=== PATIENT | male | born 1935 | race Caucasian/White ===

== ENCOUNTER 2017-08-11 21:23 | Inpatient (IN) ==
[2017-08-11] MEDS ORDERED: Ondansetron 4 MG/2 ML VIAL IVP ONE (22:18)
[2017-08-11] MEDS ORDERED: *HR* Morphine 2 MG/ML SYRINGE IVP ONE (22:18)
--- NOTE | 2017-08-11 22:29 | Emergency Department Note ---
Disposition Clinical Impression: Intertrochanteric fracture of right femur Qualifiers: Encounter type: initial encounter Fracture type: closed Fracture alignment: nondisplaced Qualified Code(s): S72.144A - Nondisplaced intertrochanteric fracture of right femur, initial encounter for closed fracture Disposition: Admitted As Inpatient Condition: Fair Referrals: NONE,PCP [Non-Partnered Physician] - Forms: ED Satisfaction Letter Time of Disposition: 23:28 Fall HPI - General Chief Complaint: ED Extremity Injury, Lower Stated Complaint: Fall/Right Hip Pain Time Seen by Provider: 08/11/17 21:43 Source: family Mode of arrival: EMS Limitations: no limitations Nursing Notes Reviewed: Yes Vital Signs Reviewed: Yes - History of Present Illness HPI Narrative: 81-year-old male presents to the ED complaining of right hip and knee pain from a fall today. Patient states he fell at approximately 1700. This is a mechanical fall while he was chasing a dog. He was walking fast and fell onto his right side. He did not have stretches arms. He states he did not hit his head or lose consciousness. Family was there during the fall and states that this is true. Patient has had a history of hip pain as he has osteoarthritis of the right hip and takes chronic pain medications for that. He has not had a surgery of his hip. Patient states he is not nauseous or vomiting he has no headache, blurry vision, weakness or numbness anywhere, he does not have chest pain shortness of breath, abdominal pain, constipation/diarrhea, pain with urination. - Related Data Allergies Allergy/AdvReac Type Severity Reaction Status Date / Time Penicillins [PCN] Allergy See Verified 05/31/17 14:52 Comments Sulfa (Sulfonamide Allergy See Verified 05/31/17 14:52 Antibiotics) Comments Review of Systems: 10 point review of systems done and negative unless otherwise stated in the history of present illness. All systems ED: reviewed and negative except as stated. Review of Systems: As Per HPI Fall PMH - Past Medical History Medical history: Reports: COPD, coronary artery disease Psychiatric history: Reports: no psych history - Social History Smoking Status: Former smoker Alcohol use: Reports: none Drug use: Reports: none Physical Exam - General Limitations: no limitations General appearance: alert - Head Head exam: atraumatic, normocephalic, normal inspection - Eye Eye exam: Present: normal appearance, PERRL - ENT ENT exam: normal exam, normal oropharynx, mucous membranes moist - Neck Neck exam: Present: normal inspection, full ROM, trachea midline - Chest Chest inspection: Present: normal inspection, symmetric chest wall rise - Respiratory Respiratory exam: Present: normal lung sounds bilaterally. Absent: respiratory distress, wheezes, accessory muscle use - Cardiovascular Cardiovascular exam: Present: regular rate - Abdominal Exam Abdominal exam: Present: soft, Non-Tender. Absent: tenderness, distention, guarding, rebound, rigidity, trauma - Expanded Lower Extremity Exam Hip/Pelvis exam: Present: tenderness (Patient was very tender to the greater trochanter on palpation.), pelvis stable (Pelvis was stable with compression and posterior pressure.). Absent: full ROM (Unable to examine due to patient pain.), swelling, abrasion, deformity, dislocation, erythema, external rotation , internal rotation, shortening Upper leg exam: Present: normal inspection Knee exam: Present: full ROM (Unable to examine due to patient much pain.), tenderness (Tenderness to the lateral knee joint.), other (All other tests were unable to do due to patient being in severe pain.). Absent: deformity, dislocation, erythema, effusion Lower leg exam: Present: normal inspection, full ROM Ankle exam: Present: normal inspection, full ROM Neurovascular/Tendon exam: Present: normal capillary refill, normal fine/light touch. Absent: pulse deficit (Bilateral pedal and posterior tibial pulses were present.), motor deficit, sensory deficit, tendon deficit, foot drop Gait: not tested/not observed - Back Exam Back exam: Present: normal inspection, full ROM. Absent: tenderness, CVA tenderness (R), CVA tenderness (L) - Neurological Exam Neurological exam: Present: alert, oriented X3 - Skin Skin exam: Present: warm, dry, intact, normal color Course Course Narrative: 9-year-old male comes in for mechanical fall with right hip and knee pain. We will get x-rays of the right hip and knee trauma any types of pathology or fractures. Patient with history of arthritis so we may need a CT to rule out any other fractures. We will start an IV on the patient and give him morphine and Zofran for his pain control as he is artery tried oxycodone and Percocets and was unable to take care of the pain. We will also get basic labs including CBC and BMP. In case he has to be admitted. If anything comes back negative. We will consider sending him home if he is able to ambulate. If he is unable to ambulate will need him to be admitted and possibly further evaluated. - Consultations Consultation #1: Spoke with Dr. Moss the orthopedist who agreed to see the patient in the hospital. He recommended that we contact the hospitalist and consult with orthopedics. Time: 23:23 Vital Signs Temperature 97.5 F L 08/11/17 21:33 Pulse Rate 64 08/11/17 21:33 Respiratory Rate 12 08/11/17 21:33 Blood Pressure 144/87 08/11/17 21:33 O2 Sat by Pulse Oximetry 94 08/11/17 21:33 Temperature 97.5 F L 08/11/17 21:33 Pulse Rate 64 08/11/17 21:33 Respiratory Rate 12 08/11/17 21:33 Blood Pressure 144/87 08/11/17 21:33 O2 Sat by Pulse Oximetry 94 08/11/17 21:33 Oxygen Delivery Oxygen Delivery Room Air Fall - [facility] Narrative Medical decision making narrative: 81-year-old male begins the ED after a fall complaining of right hip and knee pain. This was a mechanical fall so there is no reason to further workup involving syncope at this time. We did right hip as well as right knee x-rays as were his complaining of pain. He did have good pedal pulses and popliteal pulses. He did have good sensation. It is hard to get range of motion and strength exam due to patient being in so much pain. The x-rays did show an intertrochanteric fracture of the right femur. It was nondisplaced. I spoke with Dr. Shay orthopedist who agreed to see him if he was admitted to the hospital service and they consulted. A swing this to the patient. Patient is okay with this. At this time we added on basic surgical labs including PT/INR and PTT as well as placing a Hercules catheter due to patient not being able to stand and get a urinalysis. We also ordered chest x-ray and EKG. We then spoke to the hospitalist Dr. Cochran who agreed to admit the patient to their service and consult orthopedics. Patient uses pain. Patient is admitted in stable condition vital signs are stable at this time. Hip X-Ray 08/11/17 22:18 IMPRESSION: Nondisplaced intertrochanteric fracture on the right. Severe right hip osteoarthrosis. D/ / Seth Montemayor MD / Seth Montemayor MD Interpreting Provider: Seth Montemyaor MD Knee X-Ray 08/11/17 22:18 IMPRESSION: Anterior soft tissue swelling with no definite fracture. D/ / Tito Acosta MD / Tito Acosta MD Interpreting Provider: Tito Acosta MD - Medical Records Medical records reviewed: Yes I reviewed the patient's medical records. - Lab Data Lab results reviewed: Yes I reviewed the patient's lab results. Result diagrams: 08/11/17 22:43 08/11/17 22:43 Lab Results 08/11/17 08/11/17 08/11/17 Range/Units 22:43 22:43 22:43 WBC 10.1 (4.3-11.1) K/mcL RBC 4.66 (4.19-5.50) M/mcL Hgb 13.2 (12.9-16.9) g/dL Hct 41.4 (37.5-50.1) % MCV 88.8 (83.0-100.0) fL MCH 28.3 (28.0-33.3) pg MCHC 31.9 (31.6-35.5) g/dL RDW 12.8 (11.5-14.5) % Plt Count 179 (140-400) K/mcL MPV 9.4 (9.4-12.4) fL Immature Gran % 0.6 (0-4) % Seg Neutrophils % 83.5 % Lymphocytes % 9.6 % Monocytes % 5.5 % Eosinophils % 0.5 % Basophils % 0.3 % Neutrophils # 8.4 (1.6-8.9) K/mcL Lymphocytes # 1.0 (0.6-4.6) K/mcL Monocytes # 0.6 (0.0-1.3) K/mcL Eosinophils # 0.1 (0.0-0.6) K/mcL Basophils # 0.0 (0.0-0.2) K/mcL PT 10.8 (9.4-12.1) Seconds INR 1.0 APTT 28.3 (26.0-36.0) Seconds Sodium 138 (136-145) mEq/L Potassium 4.6 H (3.5-4.5) mEq/L Chloride 105 (98-109) mEq/L Carbon Dioxide 27 (19-29) mEq/L BUN 24 (8-26) mg/dL Creatinine 1.33 H (0.72-1.25) mg/dL Est GFR ( Amer) > 60 (> 60) Est GFR (Non-Af Amer) 52 L (> 60) BUN/Creatinine Ratio 18 (6-26) Glucose 159 H (70-99) mg/dL Calculated Osmolality 293 (280-300) Calcium 9.0 (8.6-10.8) mg/dL - Radiology Data Radiology results reviewed: Yes I reviewed the patient's radiology results. Hip X-Ray 08/11/17 22:18 IMPRESSION: Nondisplaced intertrochanteric fracture on the right. Severe right hip osteoarthrosis. D/ / Seth Montemayor MD / Seth Montemayor MD Interpreting Provider: Seth Montemayor MD Knee X-Ray 08/11/17 22:18 IMPRESSION: Anterior soft tissue swelling with no definite fracture. D/ / Tito Acosta MD / Tito Acosta MD Interpreting Provider: Tito Acosta MD Chest X-Ray 08/11/17 23:15 IMPRESSION: No acute abnormality D/ / Brian Lugo / Brian Lugo Interpreting Provider: Brian Lugo - EKG Data EKG attestation: Yes I reviewed and interpreted this EKG. EKG results narrative: EKG done at 2347 by myself and the attending shows normal sinus rhythm with left axis deviation at a rate of 69, WA 123, QRS 98, QTC 417. There is no acute ST changes, T-wave abnormalities. No signs of heart strain or heart block or hypertrophy. Old EKG done 04/21/15 also normal sinus rhythm with a left axis deviation and no other acute changes. EKG shows normal: sinus rhythm, intervals, QRS complexes, ST-T waves Rate: normal Rhythm: NSR [place]/QRS: left axis deviation When compared to previous EKG there are: no significant changes Interpretation: no acute changes, normal EKG, unchanged when compared to prior tracing (date) Attestation Statement - Attestation Attestation: I examined this patient and my medical decision-making was reviewed with the Resident Physician, Dr. Aj. I agree with the documented findings, disposition and treatment plan as described except to the extent set forth below. Patient is an 81-year-old elderly white male who presents to the emergency department by EMS today after sustaining a mechanical fall landing onto his right hip and unable to get up and bear weight due to severe right hip pain. Patient sustained no other injuries in the fall. Fall was witnessed by family. Patient with decreased range of motion secondary to pain to the right hip as well as the right knee. Patient denies any head injury or loss of consciousness , no preceding symptoms that led to the fall. Patient denies any prior injury to that hip. No other complaints on arrival. Vital signs are stable. I agree with patient's physical exam findings as documented. Patient had an IV saline well-established labs were drawn and sent and he was administered pain meds and antiemetics with adequate pain relief. Plain film imaging of the right hip and pelvis demonstrates a right nondisplaced intertrochanteric fracture. Patient is neurovascularly intact and skin overlying the area is closed. X-rays of the knee were unremarkable. X-ray results were discussed with patient and family who agree with admission with orthopedic consultation. Additional labs were ordered, including Hercules catheter placement and EKG. Case was discussed with Dr. Moss who is on-call for orthopedics. He agreed to consult on the patient and the patient was admitted to the hospitalist service. Patient has remained hemodynamically stable and resting comfortably at this time with family at bedside.
[2017-08-11 22:50] LABS: Basophils % 0.3 %; Eosinophils # 0.1 K/mcL (0.0-0.6); Eosinophils % 0.5 %; Hematocrit 41.4 % (37.5-50.1); Hemoglobin 13.2 g/dL (12.9-16.9); Immature Granulocytes % 0.6 % (0-4); Lymphocytes % 9.6 %; Mean Corpuscular HGB Conc 31.9 g/dL (31.6-35.5); Mean Corpuscular Hemoglobin 28.3 pg (28.0-33.3); Mean Corpuscular Volume 88.8 fL (83.0-100.0); Mean Platelet Volume 9.4 fL (9.4-12.4); Monocytes # 0.6 K/mcL (0.0-1.3); Monocytes % 5.5 %; Neutrophils # 8.4 K/mcL (1.6-8.9); Platelet Count 179 K/mcL (140-400); Red Blood Count 4.66 M/mcL (4.19-5.50); Red Cell Distribution Width 12.8 % (11.5-14.5); Segmented Neutrophils % 83.5 %
[2017-08-11 23:01] LABS: BUN/Creatinine Ratio 18 (6-26); Blood Urea Nitrogen 24 mg/dL (8-26); Carbon Dioxide 27 mEq/L (19-29); Chloride 105 mEq/L (98-109); Glucose 159 mg/dL (70-99); Osmolality,Calculated 293 (280-300); Potassium 4.6 mEq/L (3.5-4.5); Sodium 138 mEq/L (136-145); eGFR For African Americans > 60 (> 60); eGFR For Non-African Americans 52 (> 60)
[2017-08-11 23:35] LABS: Prothrombin Time 10.8 Seconds (9.4-12.1)
[2017-08-11 23:38] LABS: Activated Partial Thrombo Time 28.3 Seconds (26.0-36.0)
[2017-08-12 01:54] LABS: Bilirubin,Urine Negative (Negative); Blood,Urine Negative (Negative); Clarity,Urine Clear (Clear); Color,Urine Yellow (Yellow); Glucose,Urine (UA) Normal (Normal); Ketones,Urine Negative (Negative); Leukocyte Esterase,Urine Negative (Negative); Nitrite,Urine Negative (Negative); PH,Urine 6.5 pH Units (5.0-8.0); Protein,Urine Negative (Neg-Trace); Specific Gravity,Urine 1.017 (1.010-1.025)
[2017-08-12] MEDS ORDERED: Naloxone 0.4 MG/ML INJ IVP PRN (02:57)
[2017-08-12] MEDS ORDERED: Ondansetron 4 MG/2 ML VIAL IVP PRN (02:57)
[2017-08-12] MEDS: 0.9 % Sodium Chloride 1,000 ML IVC SCH (03:46)
--- NOTE | 2017-08-12 03:59 | Internal Med History&Physical ---
Date of Encounter: 08/12/17 Time of Encounter: 03:45 Assessment and Plan (1) Intertrochanteric fracture of right femur Current visit: Yes Status: Acute Acute intertrochanteric fracture of right femur - secondary to mechanical fall IV Morphine as needed for pain, NPO, IV Zofran as needed Chest x-ray - no acute process Right knee x-ray - anterior soft tissue swelling with no fracture Right hip x-ray - nondisplaced intertrochanteric fracture on the right side Orthopedics consult - Dr. Mason will evaluate patient Cardiac telemetry, continue to monitor closely Qualifiers: Encounter type: initial encounter Fracture type: closed Fracture alignment: nondisplaced Qualified Code(s): S72.144A - Nondisplaced intertrochanteric fracture of right femur, initial encounter for closed fracture (2) COPD (chronic obstructive pulmonary disease) Current visit: Yes Status: Chronic COPD, stable, not in exacerbation Qualifiers: COPD type: unspecified COPD Qualified Code(s): J44.9 - Chronic obstructive pulmonary disease, unspecified (3) Osteoporosis Current visit: Yes Status: Chronic Osteoporosis, patient is on vitamin D at home Qualifiers: Osteoporosis type: age-related Presence of current pathological fracture: unspecified Qualified Code(s): M81.0 - Age-related osteoporosis without current pathological fracture (4) DVT prophylaxis Current visit: Yes Status: Acute Continue Lovenox subcutaneous Internal Medicine - H&P: HPI Chief complaint: Right hip pain Admitted From: Emergency Dept Plans for Post Hospital Care: Home History of present illness: Mr. Buckner is a 81 year old male with past medical history of COPD, BPH, hyperlipidemia and osteoporosis. Patient presents to the ED with right hip pain after a mechanical fall. Examined in the room. Patient is awake and alert. Not in any distress. Family member is at bedside. Patient is able to provide a history. He states he was outside earlier this evening in his yard. He was chasing his dog, and he tripped and fell. He did not lose consciousness. Patient denies having chest pain or shortness of breath. Patient had a fall to his right side. Did not injure his head. Patient rates the pain 6 out of 10. Worse with movement. Improves with pain medication. Right lower extremity is neurovascularly intact. Patient does not have any other acute complaints at this time. Initial workup in the ED revealed nondisplaced intertrochanteric fracture on the right side. Dr. Mason has been consulted and he will evaluate patient in the morning. Patient will be NPO. CODE STATUS full code. Past Med Surg Social Fam HX - Past Medical History Medical history: arthritis, COPD, coronary artery disease Psychiatric history: no psych history - Past Surgical History Surgical History: no surgical history - Social History Smoking Status: Former smoker Alcohol use: none Drug use: none - Family History Father Living Status: Hx Family Endocrine Disorder: Yes (diabetes) Mother Living Status: Hx Family Cancer: Yes Internal Medicine - H&P: Meds 3 Allergy/AdvReac Type Severity Reaction Status Date / Time Penicillins [PCN] Allergy See Verified 05/31/17 14:52 Comments Sulfa (Sulfonamide Allergy See Verified 05/31/17 14:52 Antibiotics) Comments All Systems PM: A 10-system review of systems was performed and is negative for pertinent findings except as documented above in the HPI. - Constitutional Constitutional: no fatigue, no fever(s), no weakness - EENT Eyes: no blurry vision - Cardiovascular Cardiovascular ROS IM: no chest pain, no claudication, no diaphoresis, no dyspnea, no dyspnea on exertion, no edema, no lightheadedness, no orthopnea, no palpitations, no syncope - Respiratory Respiratory: no cough, no dyspnea, no hemoptysis, no dyspnea on exertion, no wheezing, no chest congestion - Gastrointestinal Gastrointestinal: no abdominal pain, no bloating, no cramping, no diarrhea, no hematemesis, no hematochezia, no nausea, no vomiting - Genitourinary Genitourinary ROS male: no dysuria - Musculoskeletal Musculoskeletal ROS IM: other (Right hip pain and limited range of motion) - Neurological Neurological ROS: no abnormal movements, no abnormal speech, no confusion, no dizziness, no focal weakness, no loss of vision, no numbness, no tingling - Constitutional Vitals: Temp Pulse Resp BP Pulse Ox 97.7 F 74 15 126/74 92 08/12/17 01:49 08/12/17 01:49 08/12/17 01:49 08/12/17 01:49 08/12/17 01:49 General appearance: Present: cooperative, A&O X 3, pleasant, no acute distress, answers questions appropriately - Head Head exam: Present: atraumatic - Eye Eye exam: Present: EOMI - ENT ENT exam: Present: mucous membranes dry - Respiratory Respiratory exam: Present: CTAB. Absent: rales, rhonchi, wheezes, tachypnea - Cardiovascular Cardiovascular exam: Present: RRR, +S1, +S2 - GI/Abdominal GI/Abdominal exam: Present: soft. Absent: distended, firm, guarding, tenderness - Extremities Exam Extremities exam: Present: radial pulses palpable and symmetrical. Absent: calf tenderness, cyanotic, pedal edema Additional comments: Patient has right hip tenderness. Limited range of motion of right hip. Right lower extremity neurovascularly intact. Distal pulses palpable. Left lower extremity exam is normal - Neurological Exam Neurological exam: Present: alert, oriented X3, no focal deficits. Absent: pronater drift, facial droop, speech deficit Internal Med - H&P Results - Labs CBC & Chem 7: 08/11/17 22:43 08/11/17 22:43 Labs: Urine 08/12/17 Range/Units 01:45 Urine Color Yellow (Yellow) Urine Clarity Clear (Clear) Urine pH 6.5 (5.0-8.0) pH Units Ur Specific [place] 1.017 (1.010-1.025) Urine Protein Negative (Neg-Trace) mg/dL Urine Glucose (UA) Normal (Normal) mg/dL
[2017-08-12] MEDS: *HR* Morphine 2 MG/ML SYRINGE IVP PRN ×4 (05:06→23:28)
[2017-08-12] MEDS ORDERED: *HR* Enoxaparin 40 MG/0.4 ML SYRINGE SQ SCH (06:00)
[2017-08-12] MEDS ORDERED: Famotidine 20 MG/2 ML VIAL IVP SCH (06:00)
[2017-08-12 06:09] LABS: BUN/Creatinine Ratio 19 (6-26); Blood Urea Nitrogen 23 mg/dL (8-26); Calcium 8.6 mg/dL (8.6-10.8); Carbon Dioxide 29 mEq/L (19-29); Chloride 104 mEq/L (98-109); Glucose 111 mg/dL (70-99); Magnesium 2.1 mg/dL (1.6-2.6); Osmolality,Calculated 290 (280-300); Potassium 4.5 mEq/L (3.5-4.5); Sodium 138 mEq/L (136-145); eGFR For African Americans > 60 (> 60); eGFR For Non-African Americans 58 (> 60)
--- NOTE | 2017-08-12 07:51 | Orthopedic Consult Note ---
Date of Encounter: 08/12/17 Time of Encounter: 07:48 History of Present Illness HPI: Mr. Buckner is a 81 year old male Status post fall at home with injury to right hip. Patient with a long history of right hip pain prior to this. Patient denies any head trauma. Family said answer questions as well. Physical exam Right lower extremity Shortening external rotated Decreased range of motion secondary to pain Neurovascular intact X-rays show severe right hip arthritis as well as intratrochanteric hip fracture. I discussed with the family different treatment options either fixing the fracture which will get him back to baseline, or total hip replacement. We discussed the risks and benefits of both options. Family will decide today plan for surgery tomorrow Past Med Surg Social Fam HX - Past Medical History Medical history: arthritis, COPD, coronary artery disease Psychiatric history: no psych history - Past Surgical History Surgical History: no surgical history - Social History Smoking Status: Former smoker Alcohol use: none Drug use: none - Family History Father Living Status: Hx Family Endocrine Disorder: Yes (diabetes) Mother Living Status: Hx Family Cancer: Yes Medications and Allergies 3 Allergy/AdvReac Type Severity Reaction Status Date / Time Penicillins [PCN] Allergy See Verified 05/31/17 14:52 Comments Sulfa (Sulfonamide Allergy See Verified 05/31/17 14:52 Antibiotics) Comments All Systems Reviewed: A 10-system review of systems was performed and is negative for pertinent findings except as documented above in the HPI. Physical Exam - Constitutional Vitals: Temp Pulse Resp BP Pulse Ox 98.2 F 62 16 122/78 97 08/12/17 04:03 08/12/17 04:03 08/12/17 04:03 08/12/17 04:03 08/12/17 04:03 Results - Labs Result Diagrams: 08/11/17 22:43 08/12/17 05:10 Labs: Abnormal lab results Est GFR (Non-Af Amer) 58 (> 60) L 08/12/17 05:10 Glucose 111 mg/dL (70-99) H 08/12/17 05:10 POC Glucose 113 (58-89) H 08/12/17 05:11 Urine Urobilinogen 2.0 mg/dL (Normal) H 08/12/17 01:45 All other labs normal. Consult Discharge Plan - Plan Referrals: Aj Snyder MD [Primary Care Provider] -
[2017-08-12] MEDS: *HR* HYDROcodone/Acet 5/325 mg TABLET PO PRN ×2 (09:38→16:06)
[2017-08-12] MEDS: Aspirin 81 MG TAB.CHEW PO SCH (09:38)
[2017-08-12] MEDS ORDERED: Orphenadrine 60 MG/2 ML VIAL IVP PRN (16:28)
[2017-08-12] MEDS: Methyl Salicylate/Menthol 28 GM TUBE TP PRN (16:58)
--- NOTE | 2017-08-12 16:58 | Event Note ---
Date of Encounter: 08/12/17 Time of Encounter: 13:30 Mr Buckner was admitted earlier this AM with acute R hip fracture s/p mechanical fall. He has a lot of pain associated with this injury. He is to have surgery tomorrow. Exam Alert. Moderate distress due to pain. Heart reg No wheeze Abd soft Pt has no hx of CAD, CHF, CVA. No exertional chest pain. Pt appears to be low risk for low risk procedure.
[2017-08-12] MEDS: Pregabalin 75 MG CAPSULE PO SCH (21:44)
[2017-08-12] MEDS: *HR* OxyCODONE ER (12 HR) 20 MG TABLET PO SCH (21:45)
[2017-08-12] MEDS: *HR* OxyCODONE/APAP 5/325 TABLET PO PRN (21:45)
[2017-08-12] MEDS: (Fluticasone/Vilanterol [Breo Ellipta 200-25 Mcg Inh]) IH SCH (21:58)
[2017-08-12] MEDS ORDERED: *HR* LORazepam 0.5 MG TABLET PO ONE (23:59)
[2017-08-13 03:59] LABS: Hematocrit 37.6 % (37.5-50.1); Hemoglobin 12.1 g/dL (12.9-16.9); Mean Corpuscular HGB Conc 32.2 g/dL (31.6-35.5); Mean Corpuscular Hemoglobin 28.4 pg (28.0-33.3); Mean Corpuscular Volume 88.3 fL (83.0-100.0); Mean Platelet Volume 9.7 fL (9.4-12.4); Platelet Count 177 K/mcL (140-400); Red Blood Count 4.26 M/mcL (4.19-5.50); Red Cell Distribution Width 12.4 % (11.5-14.5)
[2017-08-13 04:09] LABS: BUN/Creatinine Ratio 18 (6-26); Blood Urea Nitrogen 17 mg/dL (8-26); Calcium 8.6 mg/dL (8.6-10.8); Carbon Dioxide 26 mEq/L (19-29); Chloride 106 mEq/L (98-109); Glucose 112 mg/dL (70-99); Magnesium 2.1 mg/dL (1.6-2.6); Osmolality,Calculated 288 (280-300); Potassium 4.1 mEq/L (3.5-4.5); Sodium 138 mEq/L (136-145); eGFR For African Americans > 60 (> 60); eGFR For Non-African Americans > 60 (> 60)
[2017-08-13] MEDS: *HR* Morphine 2 MG/ML SYRINGE IVP PRN ×4 (06:10→21:25)
[2017-08-13] MEDS: Famotidine 20 MG/2 ML VIAL IVP SCH (06:10)
--- NOTE | 2017-08-13 06:13 | Orthopedics Progress Note ---
Date of Encounter: 08/13/17 Time of Encounter: 06:12 Subjective Interval history: Patient seen this morning with right hip fracture with hip arthritis. Awaiting discussions with family to sign surgical option fixation versus replacement. Objective Vital signs: Vital Signs Temp Pulse Resp BP Pulse Ox 08/13/17 03:44 98.1 F 81 18 133/80 96 08/13/17 00:16 98.4 F 88 20 138/80 97 08/12/17 19:59 98.1 F 81 16 132/79 96 08/12/17 07:59 97.6 F 61 16 138/81 98 Intake and Output 08/12/17 08/12/17 08/13/17 15:59 23:59 07:59 Intake Total 598 / 598 290 / 290 Output Total 1550 / 1550 500 / 500 Balance 598 / 598 -1260 / -1260 -500 / -500 Intake: Oral 598 / 598 290 / 290 Output: Catheter 1550 / 1550 500 / 500 Other: Meal Lunch Dinner Percent of Meal Consumed 75% 100% Weight 67.3 kg Patient Weight 08/13/17 23:59 Weight 67.3 kg - Labs CBC & BMP: 08/13/17 03:32 08/13/17 03:32 Labs: Abnormal lab results Hgb 12.1 g/dL (12.9-16.9) L 08/13/17 03:32 Glucose 112 mg/dL (70-99) H 08/13/17 03:32 POC Glucose 113 (58-89) H 08/12/17 05:11 Urine Urobilinogen 2.0 mg/dL (Normal) H 08/12/17 01:45 Consult Discharge Plan - Plan Referrals: Aj Snyder MD [Primary Care Provider] -
[2017-08-13] MEDS: (Fluticasone/Vilanterol [Breo Ellipta 200-25 Mcg Inh]) IH SCH ×2 (07:15→21:36)
[2017-08-13] MEDS: *HR* OxyCODONE ER (12 HR) 20 MG TABLET PO SCH ×2 (07:16→21:37)
[2017-08-13] MEDS: Cholecalciferol (D-3) 1,000 UNIT TABLET PO SCH (07:16)
[2017-08-13] MEDS: Pregabalin 75 MG CAPSULE PO SCH ×4 (07:16→21:36)
[2017-08-13] MEDS: Aspirin 81 MG TAB.CHEW PO SCH (07:16)
[2017-08-13] MEDS: *HR* OxyCODONE/APAP 5/325 TABLET PO PRN (09:01)
[2017-08-13] MEDS: 0.9 % Sodium Chloride 1,000 ML IVC SCH (09:02)
--- NOTE | 2017-08-13 09:05 | Internal Med Progress Note ---
<MohanJw - Last Filed: 08/13/17 17:45> Date of Encounter: 08/13/17 Time of Encounter: 09:05 - Assessment and plan (1) Intertrochanteric fracture of right femur Current Visit: Yes Status: Acute Assessment and plan: Hip xray revealed nondisplaced intertrochanteric fracture on the right and severe right hip osteoarthrosis. Right Knee xray revealed anterior soft tissue swelling without fracture. Secondary to mechanical fall. 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 -Continue cardiac telemetry Qualifiers: Encounter type: initial encounter Fracture type: closed Fracture alignment: nondisplaced Qualified Code(s): S72.144A - Nondisplaced intertrochanteric fracture of right femur, initial encounter for closed fracture (2) COPD (chronic obstructive pulmonary disease) Current Visit: Yes Status: Chronic Assessment and plan: Known history of COPD, currently no acute exacerbation CXR revealed no acute process. -Continue monitoring vitals. -Breathing treatments prn Qualifiers: COPD type: unspecified COPD Qualified Code(s): J44.9 - Chronic obstructive pulmonary disease, unspecified (3) BPH (benign prostatic hyperplasia) Current Visit: Yes Status: Chronic Assessment and plan: Known history of BPH, continue medications for chronic disease management. Continue veliz at this time. Qualifiers: Lower urinary tract symptom presence: unspecified whether lower urinary tract symptoms present Qualified Code(s): N40.0 - Benign prostatic hyperplasia without lower urinary tract symptoms (4) Osteoporosis Current Visit: Yes Status: Chronic Assessment and plan: Known history of Osteoporosis. -Fall precautions Qualifiers: Osteoporosis type: age-related Presence of current pathological fracture: unspecified Qualified Code(s): M81.0 - Age-related osteoporosis without current pathological fracture (5) Hyperlipidemia Current Visit: Yes Status: Chronic Assessment and plan: Continue simvastatin Qualifiers: Hyperlipidemia type: unspecified Qualified Code(s): E78.5 - Hyperlipidemia , unspecified (6) DVT prophylaxis Current Visit: Yes Status: Acute Assessment and plan: Continue Lovenox for dvt ppx - Subjective Interval history: Mr. Buckner is an 81 year old male with history of COPD, BPH, Hyperlipidemia, and osteoporosis who presented to the ED after sustaining a fall while possibly chasing his dog. 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 Patient is alert and oriented to person only and according to family members in the room, this is the patient' s baseline at times. Patient does answer some questions appropriately. Denies fevers, chest pain, shortness of breath, abdominal pain, or diarrhea. Patient' s family is waiting for one additional member before making a decision as to what sort of hip surgery the patient will undergo. - Constitutional Vitals: Temp Pulse Resp BP Pulse Ox 98.0 F 79 15 161/82 96 08/13/17 08:09 08/13/17 08:09 08/13/17 08:09 08/13/17 08:09 08/13/17 03:44 General appearance: Present: A&O X 1, no acute distress, answers questions appropriately - Head Head exam: Present: atraumatic, normal inspection, normocephalic - Eye Eye exam: Present: EOMI, normal appearance - ENT ENT exam: Present: mucous membranes moist, normal exam, normal oropharynx - Neck Neck exam general surgery: Present: full ROM, normal inspection, supple, trachea midline. Absent: tenderness - Respiratory Respiratory exam: Present: CTAB. Absent: rales, respiratory distress, rhonchi, wheezes, tachypnea - Cardiovascular Cardiovascular exam: Present: RRR, +S1, +S2. Absent: distant heart sounds, JVD , systolic murmur - GI/Abdominal GI/Abdominal exam: Present: normal bowel sounds, soft. Absent: distended, guarding, tenderness - Extremities Exam Extremities exam: Present: normal capillary refill, warm. Absent: cyanotic, pedal edema, tenderness Additional comments: Right hip tenderness with palpation with limited range of motion. Neurovascularly intact. - Neurological Exam Neurological exam: Present: alert. Absent: facial droop, speech deficit - Skin Skin exam: Present: dry, intact, normal color, warm. Absent: rash Internal Medicine: Result - Labs CBC & Chem 7: 08/13/17 14:45 08/13/17 03:32 Labs: Short CBC 08/13/17 Range/Units 03:32 WBC 8.2 (4.3-11.1) K/mcL Hgb 12.1 L (12.9-16.9) g/dL Hct 37.6 (37.5-50.1) % Plt Count 177 (140-400) K/mcL [facility] 08/13/17 03:32 Sodium 138 Potassium 4.1 Chloride 106 Carbon Dioxide 26 BUN 17 Creatinine 0.97 Glucose 112 H Calcium 8.6 - ABG Interpretation ABG results: PT/INR, D-dimer PT 10.8 Seconds (9.4-12.1) 08/11/17 22:43 Consult Discharge Plan - Plan Referrals: Aj Snyder MD [Primary Care Provider] - Prescriptions: OxyCODONE Immed Rel [Roxicodone 5 MG] 5 - 10 mg PO Q6HR PRN #40 tablet PRN Reason: Pain Aspirin Enteric Coated [Aspirin EC] 325 mg PO DAILY #21 tablet. Doxycycline 100 mg PO BID #14 capsule <Arash Richard - Last Filed: 08/13/17 18:54> Date of Encounter: 08/13/17 - Assessment and plan (1) Intertrochanteric fracture of right femur Current Visit: Yes Status: Acute Qualifiers: Encounter type: subsequent encounter Fracture type: closed Fracture alignment: nondisplaced Fracture healing: with routine healing Qualified Code(s): S72.144D - Nondisplaced intertrochanteric fracture of right femur, subsequent encounter for closed fracture with routine healing (2) COPD (chronic obstructive pulmonary disease) Current Visit: Yes Status: Chronic Qualifiers: COPD type: unspecified COPD Qualified Code(s): J44.9 - Chronic obstructive pulmonary disease, unspecified (3) BPH (benign prostatic hyperplasia) Current Visit: Yes Status: Chronic Qualifiers: Lower urinary tract symptom presence: unspecified whether lower urinary tract symptoms present Qualified Code(s): N40.0 - Benign prostatic hyperplasia without lower urinary tract symptoms (4) Hyperlipidemia Current Visit: Yes Status: Chronic Qualifiers: Hyperlipidemia type: mixed hyperlipidemia Qualified Code(s): E78.2 - Mixed hyperlipidemia (5) Osteoporosis Current Visit: Yes Status: Chronic Qualifiers: Osteoporosis type: age-related Presence of current pathological fracture: unspecified Qualified Code(s): M81.0 - Age-related osteoporosis without current pathological fracture (6) Chronic pain syndrome Current Visit: Yes Status: Chronic - Constitutional Vitals: Temp Pulse Resp BP Pulse Ox 96.8 F L 97 16 115/76 92 08/13/17 16:36 08/13/17 16:36 08/13/17 17:19 08/13/17 17:19 08/13/17 17:19 Internal Medicine: Result - Labs CBC & Chem 7: 08/13/17 14:45 08/13/17 03:32 Labs: Short CBC 08/13/17 08/13/17 Range/Units 03:32 14:45 WBC 8.2 (4.3-11.1) K/mcL Hgb 12.1 L 11.6 L (12.9-16.9) g/dL Hct 37.6 36.6 L (37.5-50.1) % Plt Count 177 (140-400) K/mcL BMP 08/13/17 03:32 Sodium 138 Potassium 4.1 Chloride 106 Carbon Dioxide 26 BUN 17 Creatinine 0.97 Glucose 112 H Calcium 8.6 - ABG Interpretation ABG results: PT/INR, D-dimer PT 10.8 Seconds (9.4-12.1) 08/11/17 22:43 - Impressions Impressions Hip X-Ray 08/13/17 14:25 IMPRESSION: No unexpected findings following right hip arthroplasty. D/ / Daniel Foster MD / Daniel Foster MD Interpreting Provider: Daniel Foster MD - Attending Attestation I examined this patient and my medical decision-making was reviewed with the Resident Physician on 08/13/17. I agree with the documented findings, disposition and treatment plan as described except to the extent set forth below. Mr. Buckner is currently admitted for acute hip fracture. He is s/p repair today. He remains moderate to high risk due to acute fracture and potential for worsening clinical status. Mr. Buckner has returned from surgery. He is resting comfortably. Family at bedside. No fever or chills. Exam Sedated post op. Comfortable at this time Heart - not tachy No wheeze Mucus membranes dry I/P 1. Hip fracture s/p repair 2. Chronic pain syndrome Further diagnoses and plan as above
[2017-08-13] MEDS ORDERED: ROPIVACAINE HCL/PF 0.5% 30 ML VIAL ONE (12:08)
--- NOTE | 2017-08-13 12:10 | Anesthesia Evaluation PreOp ---
Date of Encounter: 08/13/17 Time of Encounter: 12:07 - Past History Planned Operation: Right Total Hip Cardiac History: Other (CAD) Pulmonary History: COPD TOBACCO SIZER History: Denies Any Significant HX Other Medical History: Denies Any Significant HX Anesthesia History: Past Anesthesia (None) Alcohol Use: none Drug use: none Medications and Allergies Aspirin [Lo-Dose Aspirin EC] 81 mg PO DAILY 08/12/17 [History] Celecoxib [Celebrex] 200 mg PO DAILY 08/12/17 [History] Cholecalciferol (D-3) [Vitamin D] 1,000 unit PO DAILY 08/12/17 [History] Fluticasone/Vilanterol [Breo Ellipta 200-25 Mcg INH] 1 puff IH BID 08/12/17 [ History] Ipratropium/Albuterol Sulfate [Combivent Respimat Inhal [place]] 2 puff IH Q6H PRN 08/12/17 [History] OxyCODONE/APAP 10/325 [Percocet 10/325 MG] 1 - 2 tab PO Q6HR PRN 08/12/17 [ History] Oxycodone HCl [Oxycontin] 20 mg PO BID 08/12/17 [History] Pantoprazole Sodium [Pantoprazole Sodium] 40 mg PO DAILY 08/12/17 [History] Pregabalin [Lyrica] 75 mg PO TID 08/12/17 [History] Simvastatin [Zocor] 40 mg PO HS 08/12/17 [History] Tamsulosin [Flomax] 0.4 mg PO DAILY 08/12/17 [History] 3 Allergy/AdvReac Type Severity Reaction Status Date / Time Penicillins [PCN] Allergy See Verified 08/12/17 11:18 Comments Sulfa (Sulfonamide Allergy See Verified 08/12/17 11:18 Antibiotics) Comments - Meds/Allergy Pre-op Review Medications Reviewed: Yes Allergies Reviewed: Yes Beta Blockers on Current Med List: No Anesthesia Results - Labs 08/13/17 03:32 08/13/17 03:32 Anesthesia Exam O2 Sat Weight 67.3 kg O2 Sat by Pulse Oximetry 94 O2 Sat by Pulse Oximetry 98 O2 Sat by Pulse Oximetry 93 O2 Sat by Pulse Oximetry 96 O2 Sat by Pulse Oximetry 97 O2 Sat by Pulse Oximetry 96 Vital Signs Temp Pulse Resp BP Pulse Ox 97.5 F L 64 12 144/87 94 08/11/17 21:33 08/11/17 21:33 08/11/17 21:33 08/11/17 21:33 08/11/17 21:33 Vital Signs/O2 Sat, Most Current Temp Pulse Resp BP Pulse Ox 98.5 F 73 16 128/72 94 08/13/17 11:28 08/13/17 11:28 08/13/17 11:28 08/13/17 11:28 08/13/17 11:28 Height: 5'5'' Weight: 148# NPO (# of Hours): > 8 hrs Pain Scale: 0 Pain Scale Used: Numeric (1 - 10) - HEENT Pupil (Motor): Pupils equal, EOMI Mallampati: II Teeth: Edentulous Oral Opening: Greater than 3 - TOBACCO SIZER LOC: Confused TOBACCO SIZER Motor: Normal RUE, Normal LUE, Normal RLE, Normal LLE, Normal Face TOBACCO SIZER Sensory: Normal: RUE, LUE, RLE, LLE, Face - Cardiac Rhythm: Regular Murmur: None JVD: No Carotid Bruit: No - Pulmonary Breath Sounds: bilateral Clear Respiratory Effort: Symmetrical Anesthesia Assess/Plan ASA Score: 3 Modified Bascom Scale for Level of Consciousness: Cooperative, oriented, and tranquil Anesthetic Plan: General, Regional Autologous Blood: Yes Monitoring Plan: Standard Monitors Recovery Plan: PACU
[2017-08-13] MEDS ORDERED: Clindamycin 900 MG/50 ML 900 MG/50 ML IV.SOLN IVPB ONE (12:24)
--- NOTE | 2017-08-13 12:24 | Anesthesia Evaluation PreOp ---
Date of Encounter: 08/13/17 Time of Encounter: 12:22 - Past History Planned Operation: Right Total Hip Cardiac History: Hyperlipidemia, Other (CAD, Stress 4 years ago reported to be good by Family) Pulmonary History: COPD [employer] History: Denies Any Significant HX Other Medical History: Other (BPH) Anesthesia History: Past Anesthesia (None) Alcohol Use: none Drug use: none Medications and Allergies Aspirin [Lo-Dose Aspirin EC] 81 mg PO DAILY 08/12/17 [History] Celecoxib [Celebrex] 200 mg PO DAILY 08/12/17 [History] Cholecalciferol (D-3) [Vitamin D] 1,000 unit PO DAILY 08/12/17 [History] Fluticasone/Vilanterol [Breo Ellipta 200-25 Mcg INH] 1 puff IH BID 08/12/17 [ History] Ipratropium/Albuterol Sulfate [Combivent Respimat Inhal [place]] 2 puff IH Q6H PRN 08/12/17 [History] OxyCODONE/APAP 10/325 [Percocet 10/325 MG] 1 - 2 tab PO Q6HR PRN 08/12/17 [ History] Oxycodone HCl [Oxycontin] 20 mg PO BID 08/12/17 [History] Pantoprazole Sodium [Pantoprazole Sodium] 40 mg PO DAILY 08/12/17 [History] Pregabalin [Lyrica] 75 mg PO TID 08/12/17 [History] Simvastatin [Zocor] 40 mg PO HS 08/12/17 [History] Tamsulosin [Flomax] 0.4 mg PO DAILY 08/12/17 [History] 3 Allergy/AdvReac Type Severity Reaction Status Date / Time Penicillins [PCN] Allergy See Verified 08/12/17 11:18 Comments Sulfa (Sulfonamide Allergy See Verified 08/12/17 11:18 Antibiotics) Comments - Meds/Allergy Pre-op Review Medications Reviewed: Yes Allergies Reviewed: Yes Beta Blockers on Current Med List: No Anesthesia Results - Labs 08/13/17 03:32 08/13/17 03:32 - Imaging EKG: image reviewed (SR) Anesthesia Exam O2 Sat Weight 67.3 kg O2 Sat by Pulse Oximetry 94 O2 Sat by Pulse Oximetry 98 O2 Sat by Pulse Oximetry 93 O2 Sat by Pulse Oximetry 96 O2 Sat by Pulse Oximetry 97 O2 Sat by Pulse Oximetry 96 Vital Signs Temp Pulse Resp BP Pulse Ox 97.5 F L 64 12 144/87 94 08/11/17 21:33 08/11/17 21:33 08/11/17 21:33 08/11/17 21:33 08/11/17 21:33 Vital Signs/O2 Sat, Most Current Temp Pulse Resp BP Pulse Ox 98.5 F 73 16 128/72 94 08/13/17 11:28 08/13/17 11:28 08/13/17 11:28 08/13/17 11:08/13/17 11:28 Height: 5'5'' Weight: 148# NPO (# of Hours): > 8 hrs Pain Scale: 0 Pain Scale Used: Numeric (1 - 10) - HEENT Pupil (Motor): Pupils equal, EOMI Mallampati: II Teeth: Edentulous Denture Type: Upper: Complete, Lower: Complete Oral Opening: Less than or equal to 3 - [employer] LOC: Confused [employer] Motor: Normal RUE, Normal LUE, Normal RLE, Normal LLE, Normal Face [employer] Sensory: Normal: RUE, LUE, RLE, LLE, Face - Cardiac Rhythm: Regular Murmur: None JVD: No Carotid Bruit: No - Pulmonary Breath Sounds: bilateral Clear Respiratory Effort: Symmetrical Anesthesia Assess/Plan ASA Score: 3 Modified Betty Scale for Level of Consciousness: Cooperative, oriented, and tranquil Anesthetic Plan: General, Regional Autologous Blood: Yes Monitoring Plan: Standard Monitors Recovery Plan: PACU
[2017-08-13] MEDS ORDERED: Acetaminophen IV 1,000 MG/100 ML INFUS..BTL ONE (12:55)
[2017-08-13] MEDS ORDERED: Ondansetron 4 MG/2 ML VIAL ONE (13:01)
[2017-08-13] MEDS ORDERED: Lidocaine -MPF 2% 2 ML VIAL ONE (13:01)
[2017-08-13] MEDS ORDERED: Lidocaine -MPF 4% 5 ML AMPUL ONE (13:01)
[2017-08-13] MEDS ORDERED: *HR* FentaNYL (PF) 100 MCG/2 ML VIAL ONE (13:01)
[2017-08-13] MEDS ORDERED: *HR* Propofol 200 MG/20 ML VIAL IVP ONE (13:01)
[2017-08-13] MEDS ORDERED: Dexamethasone 4 MG/ML VIAL ONE (13:01)
[2017-08-13] MEDS ORDERED: Ondansetron 4 MG/2 ML VIAL IVP PRN ×2 (13:11→17:12)
[2017-08-13] MEDS ORDERED: *HR* HYDROmorphone (PF) 1 MG/ML SYRINGE IVP PRN (13:11)
[2017-08-13] MEDS ORDERED: *HR* Magnesium Sulfate 1 GM/2 ML VIAL ONE (13:13)
[2017-08-13] MEDS ORDERED: *HR* Phenylephrine 10 MG/ML VIAL ONE (13:29)
[2017-08-13] MEDS ORDERED: *HR* HYDROmorphone 2 MG/ML SYRINGE ONE (13:48)
--- NOTE | 2017-08-13 13:52 | Orthopedic Operative Note ---
Date of procedure: 08/13/17 Pre-op diagnosis: InterTrochanteric right hip fracture/arthritis Post-op diagnosis: same Procedure: Procedure: Right Total Hip Replacment Estimated blood loss: 400 cc Hardware: Metal and polyethylene replacement. Biomet DM Cup: 64 G7 fin cup Femoral Edward revision stem 16 x 150 diameter, size C 60 body, +3 head with Jes Procedural Notes: Patient with severe right hip arthritis femoral neck cut was made with the hip reduced femoral head had a very removed piecemeal. This was because of the fracture of the intertrochanteric area. Operative procedure: The patient was brought to the operating room and placed on the operating room table. After general anesthesia was administered the patient was placed in the lateral decubitus position with the operative leg up. All pressure points were padded appropriately and the head was stabilized in the neutral position. The operative extremity was prepped and draped in the sterile surgical fashion patient received IV antibiotic prior to skin incision. A standard posterior approach is made to the operative hip, the incision was made through the skin and subcutaneous tissue hemostasis was obtained with Bovie cautery. Using careful sharp dissection the fascia was identified and incised exposing the external rotators. The external rotators were released off the greater trochanter due to the severe hip arthritis and the fracture of the intratrochanteric area the femoral neck cut was made with the hip reduced. This enabled the proximal femur to be retracted exposing the femoral neck and head within the hip socket. This was removed in piecemeal fashion. Soft tissues removed from the acetabulum. Patient noted to have grade 4 arthritic changes acetabulum. Acetabulum was first reamed medially, and then reamed in 15 degrees of anteversion and 45 degrees off the horizontal. It was reamed up to the appropriate size 64 The appropriate-sized 64 acetabular cup was impacted in place in 15 degrees of anteversion and 45 degrees off the horizontal. This had good fit and fixation. The hip was brought back in to internal rotation and prepared with the sweat box attendant followed by the canal finder followed by a reaming process for distal fixation up to a size 16. The 16 Edward stem was impacted in place. It was reamed proximally up to a size C body. The C body trial was positioned in 20 degrees of anteversion trial reduction revealed excellent motion and stability with a +3 head and Jes. The C body trial was removed the real implant was seated and secured in 20 degrees of anteversion trial reduction with a +3 head revealed excellent stability. Trial was removed real head and Jes was seated and secured. The hip was reduced, patient had apparent equal leg lengths. The hip had excellent stability with forward flexion to 90 degrees adduction of 30 degrees and internal rotation of 60 degrees. The hip had no shuck. The hips after 2 minutes with a Betadine saline solution. It was irrigated out with 2 L of pulse irrigation. The hip was closed by the PA. Fascia was closed with a running #2 PDS suture. The deep tissue was irrigated and closed deep with #1 PDS suture superficially with 0 PDS suture and skin was closed with Dermabond and skin david. The patient was placed in a sterile dressing and abduction pillow. The patient was extubated and transferred to the recovery room in stable condition.nt Anesthesia: MICHELL Surgeon: Rober Flores Graves Registration Specialist: Joana Drummond Condition: stable Disposition: PACU
--- NOTE | 2017-08-13 14:27 | Anesthesia Procedures ---
Date of Encounter: 08/13/17 Time of Encounter: 14:25 Procedures: Anesthesia - Nerve Block Procedure Date: 08/13/17 Time: 12:37 Allergies/Adv Reactions: pcn, sulfa Pre-op Diagnosis: right hip fx Surgical Procedure: right GILMA Checklist: Correct Patient Identifier, Correct procedure, History checked Correct side: Right Blood Thinner: No Monitor Applied: EKG, BP, Pulse Oximetry Supplemental Oxygen via Nasal Cannula (L/min): 2 Sedation: Fentanyl (mcg): 100 Indication: Post Op Analgesia Pre-op Neuro Deficits: No Block Type: Other (fascia iliaca) Catheter placed: No Sterile Technique: Yes Ultrasound used: Yes Anatomy identified: Yes Visual spread of Local: Yes Neuro Stimulation: No Blood on Needle Aspiration: No Smooth Injection of Local: Yes Pain with Injection of Local: No Prep: Chlorhexadine Needle: 22 x 50 mm Stimuplex Local: Ropivacaine (0.25%) Volume (cc): 60 Number of Attempts: 1 Complications: None/effective block Vitals: Vital Signs/O2 Sat/Glucose, Most Recent Temp Pulse Resp BP Pulse Ox 98.5 F 78 18 149/96 95 08/13/17 11:28 08/13/17 12:37 08/13/17 12:37 08/13/17 12:37 08/13/17 12:37 Blood Glucose* 113
[2017-08-13 14:54] LABS: Hematocrit 36.6 % (37.5-50.1); Hemoglobin 11.6 g/dL (12.9-16.9)
--- NOTE | 2017-08-13 15:31 | Anesthesia Evaluation Post Op ---
Date of Encounter: 08/13/17 Time of Encounter: 15:28 - Vital Signs Vital Signs: Vital Signs/O2 Sat/Glucose, Most Current Temp Pulse Resp BP Pulse Ox 08/13/17 14:58 98.1 F 93 18 124/93 93 08/13/17 14:48 98.1 F 96 18 138/87 94 08/13/17 14:38 97 18 132/80 93 08/13/17 14:28 90 16 133/86 93 08/13/17 14:18 98.6 F 94 20 115/85 99 08/13/17 12:37 78 18 149/96 95 08/13/17 12:16 75 16 142/88 94 - Lungs Lungs: Clear Ascult./Percussion - Airway Airway: Non-obstructed - Cardiovascular Regular Rate - Mental Status Mental Status: Alert & Oriented, Answers Appropriately - Pain Pain Scale used: Numeric (1 - 10) - Nausea Vomiting Nausea Vomiting: Not Present (0) - Hydration Hydration: Ice chips (declined ice chips) - Discharge PostOp Status: Transfer Patient to floor Anes Supervising Prov Stmt: Pt seen/evaluated, VSS And pt has met criteria for discharge to floor. - MD Angel
[2017-08-13] MEDS ORDERED: Naloxone 0.4 MG/ML INJ IVP PRN (17:12)
[2017-08-13] MEDS ORDERED: Ringers Solution, Lactated 1,000 ML IVC SCH (17:15)
[2017-08-13] MEDS ORDERED: Haloperidol Lactate 5 MG/ML VIAL IVP PRN (17:33)
[2017-08-13] MEDS ORDERED: Ipratropium/Albuterol Neb 3 ML IH PRN (17:57)
[2017-08-13] MEDS: Clindamycin 900 MG/50 ML 900 MG/50 ML IV.SOLN IVPB SCH (19:00)
[2017-08-13] MEDS ORDERED: *HR* LORazepam 2 MG/ML VIAL ONE (19:02)
[2017-08-13] MEDS ORDERED: Water for inj. (sterile) 10 ML IV ONE (19:02)
[2017-08-13] MEDS ORDERED: *HR* LORazepam 2 MG/ML VIAL IVP ONE (19:03)
[2017-08-13] MEDS ORDERED: MOM Conc 10 ML UD.LIQ PO PRN (21:00)
[2017-08-13] MEDS ORDERED: risperiDONE 0.25 MG TABLET PO SCH (21:00)
[2017-08-13] MEDS ORDERED: Sennosides 8.6 MG TABLET PO PRN (21:00)
[2017-08-13] MEDS ORDERED: Temazepam 15 MG CAPSULE PO PRN (21:00)
[2017-08-13] MEDS: risperiDONE 0.25 MG TABLET PO SCH (21:37)
--- NOTE | 2017-08-13 21:52 | Electrocardiograph Report ---
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
[2017-08-14] MEDS ORDERED: Clindamycin 900 MG/50 ML 900 MG/50 ML IV.SOLN IVPB SCH
[2017-08-14] MEDS ORDERED: *HR* LORazepam 2 MG/ML VIAL IVP ONE (00:20)
[2017-08-14] MEDS: *HR* Morphine 2 MG/ML SYRINGE IVP PRN (02:30)
[2017-08-14] MEDS: Clindamycin 900 MG/50 ML 900 MG/50 ML IV.SOLN IVPB SCH (02:31)
[2017-08-14] MEDS: Famotidine 20 MG/2 ML VIAL IVP SCH (05:58)
--- NOTE | 2017-08-14 06:45 | Orthopedics Progress Note ---
Date of Encounter: 08/14/17 Time of Encounter: 06:44 Subjective Interval history: Patient was seen this morning complains of right hip pain Afebrile vital signs stable. Operative extremity: Neurovascularly intact Dressing clean dry and intact Calves nontender Assessment and plan: Continue with postoperative care hematocrit 35 Objective Vital signs: Vital Signs Temp Pulse Resp BP Pulse Ox 08/14/17 05:30 98.6 F 128 26 141/78 95 08/13/17 22:51 98.2 F 125 24 116/76 93 08/13/17 18:59 97.8 F 132 137/82 91 08/13/17 18:53 125 18 92 08/13/17 17:19 16 115/76 92 08/13/17 16:36 96.8 F L 97 14 117/73 96 08/13/17 15:52 97.2 F L 95 14 124/76 92 08/13/17 15:25 97.3 F L 97 14 118/74 92 08/13/17 14:58 98.1 F 93 18 124/93 93 08/13/17 14:48 98.1 F 96 18 138/87 94 08/13/17 14:38 97 18 132/80 93 08/13/17 14:28 90 16 133/86 93 08/13/17 14:18 98.6 F 94 20 115/85 99 08/13/17 12:37 78 18 149/96 95 08/13/17 12:16 75 16 142/88 94 08/13/17 11:28 98.5 F 73 16 128/72 94 08/13/17 10:30 98 08/13/17 10:12 72 130/75 93 08/13/17 08:09 98.0 F 79 15 161/82 Intake and Output 08/13/17 08/13/17 08/14/17 15:59 23:59 07:59 Intake Total 1000 / 1000 100 / 100 Output Total 1050 / 1050 450 / 450 Balance -50 / -50 100 / 100 -450 / -450 Intake: IV Fluids 1000 / 1000 50 / 50 0.9 % Sodium Chloride 1, 1000 / 1000 000 ML @ 50 mls/hr IVC . Q20H JENNIFER Rx#:[id number] Cleocin Premix 900 MG/50 50 / 50 ML 900 mg In 50 ml @ 50 mls/hr IVPB Q8H JENNIFER Rx#: [id number] Oral 50 / 50 Output: Estimated Blood Loss 400 / 400 Urine Amount (Catheter) 150 / 150 Catheter 500 / 500 450 / 450 Other: Weight 65.6 kg Patient Weight 08/14/17 23:59 Weight 65.6 kg - Labs CBC & BMP: 08/13/17 14:45 08/13/17 03:32 Labs: Abnormal lab results Hgb 11.6 g/dL (12.9-16.9) L 08/13/17 14:45 Hct 36.6 % (37.5-50.1) L 08/13/17 14:45 Glucose 112 mg/dL (70-99) H 08/13/17 03:32 POC Glucose 113 (58-89) H 08/12/17 05:11 Urine Urobilinogen 2.0 mg/dL (Normal) H 08/12/17 01:45 - VTE Documentation of Mechanical Device: Venous foot pump, device Consult Discharge Plan - Plan Referrals: Aj Snyder MD [Primary Care Provider] - Prescriptions: Aspirin Enteric Coated [Aspirin EC] 325 mg PO DAILY #21 tablet. Doxycycline 100 mg PO BID #14 capsule OxyCODONE Immed Rel [Roxicodone 5 MG] 5 - 10 mg PO Q6HR PRN #40 tablet PRN Reason: Pain
[2017-08-14 08:20] LABS: Basophils % 0.1 %; Hemoglobin 10.2 g/dL (12.9-16.9); Immature Granulocytes % 0.4 % (0-4); Lymphocytes % 9.1 %; Mean Corpuscular Hemoglobin 29.1 pg (28.0-33.3); Mean Corpuscular Volume 85.5 fL (83.0-100.0); Mean Platelet Volume 10.2 fL (9.4-12.4); Monocytes % 9.1 %; Neutrophils # 9.2 K/mcL (1.6-8.9); Platelet Count 195 K/mcL (140-400); Red Blood Count 3.51 M/mcL (4.19-5.50); Red Cell Distribution Width 12.5 % (11.5-14.5); Segmented Neutrophils % 81.3 %
[2017-08-14 08:38] LABS: BUN/Creatinine Ratio 23 (6-26); Blood Urea Nitrogen 26 mg/dL (8-26); Calcium 8.2 mg/dL (8.6-10.8); Carbon Dioxide 21 mEq/L (19-29); Chloride 105 mEq/L (98-109); Glucose 155 mg/dL (70-99); Osmolality,Calculated 294 (280-300); Potassium 4.2 mEq/L (3.5-4.5); Sodium 138 mEq/L (136-145); eGFR For African Americans > 60 (> 60); eGFR For Non-African Americans > 60 (> 60)
[2017-08-14] MEDS: (Fluticasone/Vilanterol [Breo Ellipta 200-25 Mcg Inh]) IH SCH ×2 (09:05→22:48)
[2017-08-14] MEDS: Aspirin 81 MG TAB.CHEW PO SCH (09:05)
[2017-08-14] MEDS: Multivit/Ca/Min/Fe/FA 1 TAB TABLET PO SCH (09:05)
[2017-08-14] MEDS: risperiDONE 0.25 MG TABLET PO SCH ×2 (09:05→20:06)
[2017-08-14] MEDS: Ascorbic Acid 500 MG TABLET PO SCH ×2 (09:05→17:38)
[2017-08-14] MEDS: *HR* OxyCODONE ER (12 HR) 20 MG TABLET PO SCH ×2 (09:05→22:21)
[2017-08-14] MEDS: Cholecalciferol (D-3) 1,000 UNIT TABLET PO SCH (09:05)
[2017-08-14] MEDS: Pregabalin 75 MG CAPSULE PO SCH ×3 (09:05→20:06)
[2017-08-14] MEDS: 0.9 % Sodium Chloride 1,000 ML IVC SCH (12:15)
--- NOTE | 2017-08-14 12:29 | Event Note ---
Date of Encounter: 08/14/17 Time of Encounter: 12:27 PCR -Right Hip Fracture - Right THR 08/13/17 POD#1 Patient seen at bedside. Labs: H/H stable - asymptomatic - will plan to type and cross in case blood transfusion needed* WBC slightly elevated 11 - continue to monitor closely with hospitalist Pain control: adequate Participating in PT. All questions and concerns addressed. Educated on use of incentive spirometer, ambulation, and hydration. Patient educated on post-operative restrictions and care. Addressed: He will be discharged on Doxycycline 100mg BID x 7 days secondary to high infection risk with prolonged hospitalization and fracture D/C plan:. OLINDA torres
[2017-08-15 06:33] LABS: BUN/Creatinine Ratio 27 (6-26); Blood Urea Nitrogen 24 mg/dL (8-26); Calcium 8.2 mg/dL (8.6-10.8); Carbon Dioxide 24 mEq/L (19-29); Chloride 107 mEq/L (98-109); Glucose 120 mg/dL (70-99); Osmolality,Calculated 293 (280-300); Potassium 3.8 mEq/L (3.5-4.5); Sodium 139 mEq/L (136-145); eGFR For African Americans > 60 (> 60); eGFR For Non-African Americans > 60 (> 60)
[2017-08-15 06:35] LABS: Basophils % 0.1 %; Eosinophils % 0.1 %; Hematocrit 27.4 % (37.5-50.1); Immature Granulocytes % 0.8 % (0-4); Lymphocytes # 1.6 K/mcL (0.6-4.6); Lymphocytes % 15.4 %; Mean Corpuscular HGB Conc 32.8 g/dL (31.6-35.5); Mean Corpuscular Hemoglobin 28.8 pg (28.0-33.3); Mean Corpuscular Volume 87.5 fL (83.0-100.0); Mean Platelet Volume 10.3 fL (9.4-12.4); Monocytes # 1.1 K/mcL (0.0-1.3); Monocytes % 10.9 %; Neutrophils # 7.5 K/mcL (1.6-8.9); Platelet Count 193 K/mcL (140-400); Red Blood Count 3.13 M/mcL (4.19-5.50); Red Cell Distribution Width 12.8 % (11.5-14.5); Segmented Neutrophils % 72.7 %
--- NOTE | 2017-08-15 06:44 | Orthopedics Progress Note ---
Date of Encounter: 08/15/17 Time of Encounter: 06:43 Subjective Interval history: Patient was seen this morning more alert Afebrile vital signs stable. Operative extremity: Neurovascularly intact Dressing clean dry and intact Calves nontender Assessment and plan: Continue with postoperative care [id number] Objective Vital signs: Vital Signs Temp Pulse Resp BP Pulse Ox 08/15/17 01:12 97.8 F 89 18 149/73 96 08/14/17 20:54 98.3 F 67 16 154/78 93 08/14/17 20:37 96 08/14/17 16:13 98.2 F 88 17 161/72 96 08/14/17 12:17 98.1 F 101 17 157/81 96 08/14/17 07:59 98.6 F 118 16 132/78 96 Intake and Output 08/14/17 08/14/17 08/15/17 15:59 23:59 07:59 Intake Total 1000 / 1000 Output Total 260 / 260 Balance 1000 / 1000 -260 / -260 Intake: IV Fluids 1000 / 1000 0.9 % Sodium Chloride 1,000 ML 1000 / 1000 @ 50 mls/hr IVC .Q20H JENNIFER Rx#: [id number] Oral 0 / 0 Output: Urine 0 / 0 Straight Cath 260 / 260 Other: Meal Lunch Percent of Meal Consumed 0% # Urine Diapers 1 - Labs CBC & BMP: 08/15/17 05:01 08/15/17 05:01 Labs: Abnormal lab results RBC 3.13 M/mcL (4.19-5.50) L 08/15/17 05:01 Hgb 9.0 g/dL (12.9-16.9) L 08/15/17 05:01 Hct 27.4 % (37.5-50.1) L 08/15/17 05:01 BUN/Creatinine Ratio 27 (6-26) H 08/15/17 05:01 Glucose 120 mg/dL (70-99) H 08/15/17 05:01 POC Glucose 113 (58-89) H 08/12/17 05:11 Calcium 8.2 mg/dL (8.6-10.8) L 08/15/17 05:01 Urine Urobilinogen 2.0 mg/dL (Normal) H 08/12/17 01:45 - VTE Documentation of Mechanical Device: Venous foot pump, device Consult Discharge Plan - Plan Additional Instructions: Discharge Instructions: Total Hip Replacement Please call [facility] ([phone]), your Primary Care Physician, or report to the Emergency Room if you have any of the following symptoms: Nausea, vomiting, fever greater that 101.5, swelling, chest pain, shortness of breath, increased pain/redness/drainage/odor for your incision site, numbness/ tingling, or any other concerning symptoms. ACTIVITY:Weight-bearing as tolerated for 8 weeks with hip dislocation precautions that physical therapy taught you. You may progress as tolerated under the guidance of your physical therapist. You do not need to sleep with a pillow between your legs. You can also seep on the operative side or on your stomach. MEDICATIONS: Upon discharge resume your home medications. Take all the medications as prescribed. Take a stool softener if taking narcotic pain medications. Stool softeners are only effective if you drink enough fluids. Drink 6-8 glass of water or fluids a day, unless this is not allowed for another health problem. Despite using stool softeners, if you haven't had a bowel movement in 3 days, please switch to a gentle laxative. Gentle laxatives are sold over the counter. You should have a bowel movement within 24 hours, if not call the office. You will be discharged from the hospital with a prescription for pain medication. You are encouraged to decrease the use of narcotic pain medication as tolerated. Should you require a refill, please call the office. [facility] prescribes narcotic pain medication for only 4-6 weeks after surgery. If you require pain medication beyond this time period, you may be referred to your Primary Care Physician or to the Pain Clinic for further evaluation. Plan ahead for refills on pain medication as many narcotics either need to be picked up at the office or mailed. It is best to call 48-72 hours in advance of needing a prescription refill so you don't run out of medication. To help control the post-operative pain, you may take NSAIDs (Aleve,Advil, Motrin, ibuprofen, naprosyn) or Tylenol as prescribed on the bottle in addition to the pain medication. ANTICOAGULATION (blood thinners): Continue your Aspirin, Lovenox or Coumadin as prescribed to help prevent a blood clot in the leg or in the lungs. As long as your incision remains dry and you tolerate the NSAIDs (Aleve, Advil, Motrin, Ibuprofen, Naprosyn), it is OK to use the NSAIDS while you are taking your anticoagulation medication. Should your incision start to drain, stop the NSAID and contact our office. Common symptoms of blood clot in the legs include: localized pain, swelling, calf tenderness, redness or discoloration of the skin. Blood clot in the lung symptoms include: shortness of breath, rapid pulse, sweating, and chest pain that worsens with deep breathing, coughing up blood, lightheadedness, feelings of anxiety. If you experience any of these symptoms notify your physician immediately, go to the emergency room, or if having trouble breathing, call 911. WOUND CARE: Leave the dressing on for 7 to 10days. You may change the dressing if it is saturated greater than 50%. Do not get the dressing wet at anytime. Wash your hands with antibacterial soap, rinse and dry prior to any wound care. If you have david the visiting nurse or rehab facility can remove the stapes 10-14 days after surgery and place steri-strips across the wound. Leave the steri-strips in place until they fall off on their own. You may let water from the shower run on top of the steri-strips. If you do not have a visiting nurse or rehab facility, you will need to return to the office at 10-14 days for the david to be removed. If you have itching or redness around the dressing call the office. FOLLOW-UP: Please follow up with your surgeon in the orthopedic clinic in 6 weeks from the day of surgery. If you have david that need to be removed, you will need to come back to the office in 10-14 days from the day of surgery. Referrals: Daily Granger PAC [Physician Blueprint Reader] - 08/31/17 1:15 pm Rober Flores MD [Partnered Physician] - 09/11/17 9:40 am Joana Drummond PAC [Physician Blueprint Reader] - 08/23/17 2:45 pm Prescriptions: Aspirin Enteric Coated [Aspirin EC] 325 mg PO DAILY #21 tablet. Doxycycline 100 mg PO BID #14 capsule OxyCODONE Immed Rel [Roxicodone 5 MG] 5 - 10 mg PO Q6HR PRN #40 tablet PRN Reason: Pain
[2017-08-15] MEDS: Famotidine 20 MG/2 ML VIAL IVP SCH (06:49)
[2017-08-15] MEDS ORDERED: Furosemide 20 MG/2 ML VIAL IVP ONE ×2 (06:51→07:20)
[2017-08-15] MEDS: risperiDONE 0.25 MG TABLET PO SCH ×2 (08:42→21:26)
[2017-08-15] MEDS: Pregabalin 75 MG CAPSULE PO SCH ×3 (08:42→21:27)
[2017-08-15] MEDS: Aspirin 81 MG TAB.CHEW PO SCH (08:43)
[2017-08-15] MEDS: (Fluticasone/Vilanterol [Breo Ellipta 200-25 Mcg Inh]) IH SCH ×2 (08:53→21:35)
[2017-08-15] MEDS: Ascorbic Acid 500 MG TABLET PO SCH ×2 (08:53→17:11)
[2017-08-15] MEDS: Multivit/Ca/Min/Fe/FA 1 TAB TABLET PO SCH (08:54)
[2017-08-15] MEDS: Cholecalciferol (D-3) 1,000 UNIT TABLET PO SCH (08:54)
[2017-08-15] MEDS: *HR* OxyCODONE ER (12 HR) 20 MG TABLET PO SCH ×2 (08:54→21:35)
[2017-08-15] MEDS ORDERED: *HR* LORazepam 2 MG/ML VIAL IVP ONE (09:27)
[2017-08-15] MEDS ORDERED: 0.9 % Sodium Chloride Mini Bag 100 ML ONE (11:20)
--- NOTE | 2017-08-15 12:14 | Event Note ---
Date of Encounter: 08/15/17 Time of Encounter: 12:20 PCR -Right Hip Fracture - Right THR 08/13/17 POD#2 Patient seen at bedside. Labs: H/H stable - asymptomatic - type and cross was performed in case blood transfusion needed - patient receiving 1 unit PRBCs 08/15/17. WBC back w/in NL - continue to monitor closely with hospitalist Pain control: adequate Participating in PT. All questions and concerns addressed. Educated on use of incentive spirometer, ambulation, and hydration. Patient educated on post-operative restrictions and care. Addressed: He will be discharged on Doxycycline 100mg BID x 7 days secondary to high infection risk with prolonged hospitalization and fracture Patient very restless and somnolent during exam today. Two family members at bedside who state he is "not like this at home and has not been eating anything since before surgery. Per nurse patient has not been receiving some of his home meds including Risperdone. Per nurse Hospitalist aware - has not been in to see him. If patient is not able to take PO meds [facility] needs to be notified in order to arrange for IV meds for infection prevention. Dressing appx 25% saturated - instructed nursing to change dressing prior to patient discharge. D/C plan:. [facility]
--- NOTE | 2017-08-15 15:01 | Internal Med Progress Note ---
Date of Encounter: 08/14/17 Time of Encounter: 16:00 - Assessment and plan (1) Acute encephalopathy Current Visit: Yes Status: Acute Assessment and plan: Likely postoperative delirium. We will hold IV morphine, will use oral Percocet only for severe pain. Patient is noted to be on long-acting oxycodone at home for unclear reasons. Continue one-on-one sitter for patient's safety. Fall precautions. Continue IV hydration. (2) Intertrochanteric fracture of right femur Current Visit: Yes Status: Acute Assessment and plan: Orthopedic surgery on board. Status post right total hip replacement, postoperative day 1. Noted to have drop in hemoglobin, continue to monitor. Pain control with Tylenol and oxycodone as needed. Noted to be very tachycardic , unclear if it is due to pain or dehydration. Continue IV hydration and start low-dose metoprolol. Local wound care per orthopedics recommendations. Physical and occupational therapy evaluation completed, recommend placement in extended care facility. dietary services director consulted. Qualifiers: Encounter type: subsequent encounter Fracture type: closed Fracture alignment: nondisplaced Fracture healing: with routine healing Qualified Code(s): S72.144D - Nondisplaced intertrochanteric fracture of right femur, subsequent encounter for closed fracture with routine healing (3) COPD (chronic obstructive pulmonary disease) Current Visit: Yes Status: Chronic Assessment and plan: Not noted to be in acute exacerbation. Continue when necessary bronchodilators and supplemental oxygen. Qualifiers: COPD type: unspecified COPD Qualified Code(s): J44.9 - Chronic obstructive pulmonary disease, unspecified (4) Osteoporosis Current Visit: Yes Status: Chronic Qualifiers: Osteoporosis type: age-related Presence of current pathological fracture: unspecified Qualified Code(s): M81.0 - Age-related osteoporosis without current pathological fracture (5) BPH (benign prostatic hyperplasia) Current Visit: Yes Status: Chronic Assessment and plan: Continue Flomax. Qualifiers: Lower urinary tract symptom presence: unspecified whether lower urinary tract symptoms present Qualified Code(s): N40.0 - Benign prostatic hyperplasia without lower urinary tract symptoms - Subjective Interval history: Noted to be drowsy, unable to provide any history. Noted to be disoriented, grabbing at things in the air, intermittently combated per nursing staff. Status post right hip replacement yesterday. - Constitutional Vitals: Temp Pulse Resp BP Pulse Ox 98.4 F 77 18 168/74 92 08/15/17 13:00 08/15/17 13:00 08/15/17 13:00 08/15/17 13:00 08/15/17 13:00 General appearance: Present: A&O X 0 (Slightly drowsy, disoriented, intermittently mumbling and grabbing at things in the air). Absent: answers questions appropriately - Respiratory Respiratory exam: Present: CTAB (Anterolaterally). Absent: accessory muscle use , rales, rhonchi, wheezes - Cardiovascular Cardiovascular exam: Present: RRR, +S1, +S2, tachycardia. Absent: diastolic murmur, gallop, rubs, systolic murmur - GI/Abdominal GI/Abdominal exam: Present: normal bowel sounds, soft, no peritoneal signs. Absent: distended, tenderness - Extremities Exam Extremities exam: Present: full ROM (Restricted right hip), warm, radial pulses palpable and symmetrical. Absent: calf tenderness, cyanotic, pedal edema Additional comments: Right lateral hip surgical dressing clean and dry - Neurological Exam Neurological exam: Present: altered, no focal deficits (Complete assessment cannot be done due to patient's mental status). Absent: pronater drift, facial droop, speech deficit Internal Medicine: Result - Labs CBC & Chem 7: 08/15/17 05:01 08/15/17 05:01 Labs: Short CBC 08/15/17 Range/Units 05:01 WBC 10.4 (4.3-11.1) K/mcL Hgb 9.0 L (12.9-16.9) g/dL Hct 27.4 L (37.5-50.1) % Plt Count 193 (140-400) K/mcL Neutrophils # 7.5 (1.6-8.9) K/mcL BMP 08/15/17 05:01 Sodium 139 Potassium 3.8 Chloride 107 Carbon Dioxide 24 BUN 24 Creatinine 0.88 Glucose 120 H Calcium 8.2 L - ABG Interpretation ABG results: PT/INR, D-dimer PT 10.8 Seconds (9.4-12.1) 08/11/17 22:43 - VTE Documentation of Mechanical Device: Venous foot pump, device Consult Discharge Plan - Plan Additional Instructions: Discharge Instructions: Total Hip Replacement Please call [facility] ([phone]), your Primary Care Physician, or report to the Emergency Room if you have any of the following symptoms: Nausea, vomiting, fever greater that 101.5, swelling, chest pain, shortness of breath, increased pain/redness/drainage/odor for your incision site, numbness/ tingling, or any other concerning symptoms. ACTIVITY:Weight-bearing as tolerated for 8 weeks with hip dislocation precautions that physical therapy taught you. You may progress as tolerated under the guidance of your physical therapist. You do not need to sleep with a pillow between your legs. You can also seep on the operative side or on your stomach. MEDICATIONS: Upon discharge resume your home medications. Take all the medications as prescribed. Take a stool softener if taking narcotic pain medications. Stool softeners are only effective if you drink enough fluids. Drink 6-8 glass of water or fluids a day, unless this is not allowed for another health problem. Despite using stool softeners, if you haven't had a bowel movement in 3 days, please switch to a gentle laxative. Gentle laxatives are sold over the counter. You should have a bowel movement within 24 hours, if not call the office. You will be discharged from the hospital with a prescription for pain medication. You are encouraged to decrease the use of narcotic pain medication as tolerated. Should you require a refill, please call the office. [facility] prescribes narcotic pain medication for only 4-6 weeks after surgery. If you require pain medication beyond this time period, you may be referred to your Primary Care Physician or to the Pain Clinic for further evaluation. Plan ahead for refills on pain medication as many narcotics either need to be picked up at the office or mailed. It is best to call 48-72 hours in advance of needing a prescription refill so you don't run out of medication. To help control the post-operative pain, you may take NSAIDs (Aleve,Advil, Motrin, ibuprofen, naprosyn) or Tylenol as prescribed on the bottle in addition to the pain medication. ANTICOAGULATION (blood thinners): Continue your Aspirin, Lovenox or Coumadin as prescribed to help prevent a blood clot in the leg or in the lungs. As long as your incision remains dry and you tolerate the NSAIDs (Aleve, Advil, Motrin, Ibuprofen, Naprosyn), it is OK to use the NSAIDS while you are taking your anticoagulation medication. Should your incision start to drain, stop the NSAID and contact our office. Common symptoms of blood clot in the legs include: localized pain, swelling, calf tenderness, redness or discoloration of the skin. Blood clot in the lung symptoms include: shortness of breath, rapid pulse, sweating, and chest pain that worsens with deep breathing, coughing up blood, lightheadedness, feelings of anxiety. If you experience any of these symptoms notify your physician immediately, go to the emergency room, or if having trouble breathing, call 911. WOUND CARE: Leave the dressing on for 7 to 10days. You may change the dressing if it is saturated greater than 50%. Do not get the dressing wet at anytime. Wash your hands with antibacterial soap, rinse and dry prior to any wound care. If you have david the visiting nurse or rehab facility can remove the stapes 10-14 days after surgery [address] steri-strips across the wound. Leave the steri-strips in place until they fall off on their own. You may let water from the shower run on top of the steri-strips. If you do not have a visiting nurse or rehab facility, you will need to return to the office at 10-14 days for the david to be removed. If you have itching or redness around the dressing call the office. FOLLOW-UP: Please follow up with your surgeon in the orthopedic clinic in 6 weeks from the day of surgery. If you have david that need to be removed, you will need to come back to the office in 10-14 days from the day of surgery. Referrals: Daily Granger PAC [Physician Bill Collector] - 08/31/17 1:15 pm Rober Flores MD [Partnered Physician] - 09/11/17 9:40 am Joana Drummond PAC [Physician Bill Collector] - 08/23/17 2:45 pm Prescriptions: OxyCODONE Immed Rel [Roxicodone 5 MG] 5 - 10 mg PO Q6HR PRN #40 tablet PRN Reason: Pain Aspirin Enteric Coated [Aspirin EC] 325 mg PO DAILY #21 tablet. Doxycycline 100 mg PO BID #14 capsule
--- NOTE | 2017-08-15 15:03 | Internal Med Progress Note ---
Date of Encounter: 08/15/17 Time of Encounter: 14:35 - Assessment and plan (1) Acute encephalopathy Status: Acute Assessment and plan: Likely postoperative delirium. We will hold IV morphine, continue oral Percocet only for severe pain. Patient is noted to be on long-acting oxycodone at home for unclear reasons. Continue one-on-one sitter for patient's safety. Fall precautions. Continue IV hydration. Labs and vital signs normal. Will check urinalysis and chest x-ray to rule out infection. Abdominal x-ray to rule out ileus/constipation as abdominal tenderness is noted on exam. Will start bowel regimen for constipation. (2) Intertrochanteric fracture of right femur Status: Acute Assessment and plan: Orthopedic surgery on board. Status post right total hip replacement, postoperative day 2. Noted to have drop in hemoglobin, 9 today, will transfuse 1 unit PRBC, continue to monitor. Pain control with Tylenol and oxycodone as needed. Improved tachycardia. Local wound care per orthopedics recommendations. Physical and occupational therapy evaluation completed, recommend placement in extended care facility. director learning services consulted. Qualifiers: Encounter type: subsequent encounter Fracture type: closed Fracture alignment: nondisplaced Fracture healing: with routine healing Qualified Code(s): S72.144D - Nondisplaced intertrochanteric fracture of right femur, subsequent encounter for closed fracture with routine healing (3) COPD (chronic obstructive pulmonary disease) Status: Chronic Assessment and plan: Not noted to be in acute exacerbation. Continue when necessary bronchodilators and supplemental oxygen. Qualifiers: COPD type: unspecified COPD Qualified Code(s): J44.9 - Chronic obstructive pulmonary disease, unspecified (4) Osteoporosis Status: Chronic Qualifiers: Osteoporosis type: age-related Presence of current pathological fracture: unspecified Qualified Code(s): M81.0 - Age-related osteoporosis without current pathological fracture (5) BPH (benign prostatic hyperplasia) Status: Chronic Qualifiers: Lower urinary tract symptom presence: unspecified whether lower urinary tract symptoms present Qualified Code(s): N40.0 - Benign prostatic hyperplasia without lower urinary tract symptoms - Subjective Interval history: Drowsy since receiving Ativan; noted to be very confused, swatting at medical staff, refusing his meds and diet earlier this morning; - Constitutional Vitals: Temp Pulse Resp BP Pulse Ox 98.4 F 77 18 168/74 92 08/15/17 13:00 08/15/17 13:00 08/15/17 13:00 08/15/17 13:00 08/15/17 13:00 General appearance: Present: A&O X 0. Absent: answers questions appropriately - Respiratory Respiratory exam: Present: CTAB (anterolaterally). Absent: accessory muscle use , rales, rhonchi, wheezes - Cardiovascular Cardiovascular exam: Present: RRR, +S1, +S2. Absent: diastolic murmur, gallop, rubs, systolic murmur - GI/Abdominal GI/Abdominal exam: Present: normal bowel sounds, soft (winces to deep palpation in lower abdomen), no peritoneal signs. Absent: distended, tenderness - Extremities Exam Extremities exam: Present: full ROM (right lateral hip surgical incision healing well per Orthopedics), warm, radial pulses palpable and symmetrical. Absent: calf tenderness, cyanotic, pedal edema - Neurological Exam Neurological exam: Present: altered, no focal deficits (further assessment cannot be completed due to mental status). Absent: pronater drift, facial droop , speech deficit Internal Medicine: Result - Labs CBC & Chem 7: 08/16/17 07:54 08/16/17 07:54 Labs: Short CBC 08/15/17 Range/Units 05:01 WBC 10.4 (4.3-11.1) K/mcL Hgb 9.0 L (12.9-16.9) g/dL Hct 27.4 L (37.5-50.1) % Plt Count 193 (140-400) K/mcL Neutrophils # 7.5 (1.6-8.9) K/mcL BMP 08/15/17 05:01 Sodium 139 Potassium 3.8 Chloride 107 Carbon Dioxide 24 BUN 24 Creatinine 0.88 Glucose 120 H Calcium 8.2 L - ABG Interpretation ABG results: PT/INR, D-dimer PT 10.8 Seconds (9.4-12.1) 08/11/17 22:43 - VTE Documentation of Mechanical Device: Venous foot pump, device Consult Discharge Plan - Plan Instructions: Doxycycline (By mouth), Aspirin (By mouth), Oxycodone, Rapid Release (By mouth), Total Hip Replacement (DC) Additional Instructions: Discharge Instructions: Total Hip Replacement Please call [facility] ([phone]), your Primary Care Physician, or report to the Emergency Room if you have any of the following symptoms: Nausea, vomiting, fever greater that 101.5, swelling, chest pain, shortness of breath, increased pain/redness/drainage/odor for your incision site, numbness/ tingling, or any other concerning symptoms. ACTIVITY:Weight-bearing as tolerated for 8 weeks with hip dislocation precautions that physical therapy taught you. You may progress as tolerated under the guidance of your physical therapist. You do not need to sleep with a pillow between your legs. You can also seep on the operative side or on your stomach. MEDICATIONS: Upon discharge resume your home medications. Take all the medications as prescribed. Take a stool softener if taking narcotic pain medications. Stool softeners are only effective if you drink enough fluids. Drink 6-8 glass of water or fluids a day, unless this is not allowed for another health problem. Despite using stool softeners, if you haven't had a bowel movement in 3 days, please switch to a gentle laxative. Gentle laxatives are sold over the counter. You should have a bowel movement within 24 hours, if not call the office. You will be discharged from the hospital with a prescription for pain medication. You are encouraged to decrease the use of narcotic pain medication as tolerated. Should you require a refill, please call the office. [facility] prescribes narcotic pain medication for only 4-6 weeks after surgery. If you require pain medication beyond this time period, you may be referred to your Primary Care Physician or to the Pain Clinic for further evaluation. Plan ahead for refills on pain medication as many narcotics either need to be picked up at the office or mailed. It is best to call 48-72 hours in advance of needing a prescription refill so you don't run out of medication. To help control the post-operative pain, you may take NSAIDs (Aleve,Advil, Motrin, ibuprofen, naprosyn) or Tylenol as prescribed on the bottle in addition to the pain medication. ANTICOAGULATION (blood thinners): Continue your Aspirin, Lovenox or Coumadin as prescribed to help prevent a blood clot in the leg or in the lungs. As long as your incision remains dry and you tolerate the NSAIDs (Aleve, Advil, Motrin, Ibuprofen, Naprosyn), it is OK to use the NSAIDS while you are taking your anticoagulation medication. Should your incision start to drain, stop the NSAID and contact our office. Common symptoms of blood clot in the legs include: localized pain, swelling, calf tenderness, redness or discoloration of the skin. Blood clot in the lung symptoms include: shortness of breath, rapid pulse, sweating, and chest pain that worsens with deep breathing, coughing up blood, lightheadedness, feelings of anxiety. If you experience any of these symptoms notify your physician immediately, go to the emergency room, or if having trouble breathing, call 911. WOUND CARE: Leave the dressing on for 7 to 10days. You may change the dressing if it is saturated greater than 50%. Do not get the dressing wet at anytime. Wash your hands with antibacterial soap, rinse and dry prior to any wound care. If you have david the visiting nurse or rehab facility can remove the stapes 10-14 days after surgery [address] steri-strips across the wound. Leave the steri-strips in place until they fall off on their own. You may let water from the shower run on top of the steri-strips. If you do not have a visiting nurse or rehab facility, you will need to return to the office at 10-14 days for the david to be removed. If you have itching or redness around the dressing call the office. FOLLOW-UP: Please follow up with your surgeon in the orthopedic clinic in 6 weeks from the day of surgery. If you have david that need to be removed, you will need to come back to the office in 10-14 days from the day of surgery. Referrals: Daiyl Granger PAC [Physician Radiological Technologist] - 08/31/17 1:15 pm Rober Flores MD [Partnered Physician] - 09/11/17 9:40 am Joana Drummond PAC [Physician Radiological Technologist] - 08/23/17 2:45 pm Prescriptions: OxyCODONE Immed Rel [Roxicodone 5 MG] 5 - 10 mg PO Q6HR PRN #40 tablet PRN Reason: Pain Aspirin Enteric Coated [Aspirin EC] 325 mg PO DAILY #21 tablet. Doxycycline 100 mg PO BID #14 capsule
[2017-08-15] MEDS: Bisacodyl 10 MG RECTAL SUPPOSITORY RC SCH (15:22)
[2017-08-15 15:27] LABS: Bilirubin,Urine Negative (Negative); Blood,Urine Small (Negative); Clarity,Urine Clear (Clear); Color,Urine Yellow (Yellow); Glucose,Urine (UA) Normal (Normal); Ketones,Urine 15 mg/dL (Negative); Leukocyte Esterase,Urine Negative (Negative); Nitrite,Urine Negative (Negative); Protein,Urine 30 mg/dL (Neg-Trace); Specific Gravity,Urine 1.018 (1.010-1.025); Urobilinogen,Urine Normal (Normal)
[2017-08-15 15:29] LABS: Bacteria,Urine None Seen per hpf (None-Few); Hyaline Casts,Urine None Seen per lpf (None-Few); RBC,Urine 0-3 per hpf (0-3); Squamous Epithelial Cell,Urine Many per lpf (None-Few); WBC,Urine 0-3 per hpf (0-3)
[2017-08-16] MEDS ORDERED: Ziprasidone injection 20 MG/ML VIAL IM ONE (00:18)
[2017-08-16] MEDS: Famotidine 20 MG/2 ML VIAL IVP SCH (06:57)
--- NOTE | 2017-08-16 08:08 | Electrocardiograph Report ---
[address] [address] Test Date: 2017-08-14 Pat Name: Seth Buckner Department: 114 Room: [facility] Gender: M Market Consultant: : [id number] Requested By: Phyllis Gallardo Order Number: [id number] Reading MD: Benja Dawkins MD Measurements Intervals [place] Rate: 118 P: -22 AK: 110 QRS: -48 QRSD: 106 T: 70 QT: 334 QTc: 404 Interpretive Statements SINUS TACHYCARDIA WITH SHORT [place] INTERVAL LEFT ANTERIOR FASCICULAR BLOCK BASELINE ARTIFACT Electronically Signed On 08-16-2017 6:27:17 EDT by Benja Dawkins MD
[2017-08-16 08:11] LABS: Basophils % 0.2 %; Eosinophils % 0.1 %; Hematocrit 30.2 % (37.5-50.1); Hemoglobin 10.1 g/dL (12.9-16.9); Immature Granulocytes % 0.9 % (0-4); Lymphocytes # 1.2 K/mcL (0.6-4.6); Lymphocytes % 11.2 %; Mean Corpuscular HGB Conc 33.4 g/dL (31.6-35.5); Mean Corpuscular Hemoglobin 28.7 pg (28.0-33.3); Mean Corpuscular Volume 85.8 fL (83.0-100.0); Mean Platelet Volume 9.5 fL (9.4-12.4); Monocytes # 0.8 K/mcL (0.0-1.3); Monocytes % 7.1 %; Neutrophils # 8.7 K/mcL (1.6-8.9); Nucleated Red Blood Cells 0.3 /100 WBC (0); Platelet Count 208 K/mcL (140-400); Red Blood Count 3.52 M/mcL (4.19-5.50); Red Cell Distribution Width 13.2 % (11.5-14.5); Segmented Neutrophils % 80.5 %
[2017-08-16 08:14] LABS: BUN/Creatinine Ratio 36 (6-26); Blood Urea Nitrogen 30 mg/dL (8-26); Calcium 8.4 mg/dL (8.6-10.8); Carbon Dioxide 23 mEq/L (19-29); Chloride 106 mEq/L (98-109); Glucose 118 mg/dL (70-99); Osmolality,Calculated 295 (280-300); Sodium 139 mEq/L (136-145); eGFR For African Americans > 60 (> 60); eGFR For Non-African Americans > 60 (> 60)
--- NOTE | 2017-08-16 08:15 | Orthopedics Progress Note ---
Date of Encounter: 08/16/17 Time of Encounter: 08:13 - Assessment and Plan (1) Status post total hip replacement, right Current Visit: Yes Status: Acute Right THR 08/13/17 POD#3 Patient doing well, A&O in chair, Pain controlled. Vitals stable. Afebrile. Plan: Continue in with hip precautions x 6 weeks. . RLE: WBAT D/C to ECF - stable from orthopedic standpoint, hospitalist on board monitoring medical improvement Discharge on 7 days of antibiotics secondary to prolonged hospital stay, sedentary activity since surgery, and high infection risk. (2) Intertrochanteric fracture of right femur Current Visit: Yes Status: Acute Qualifiers: Encounter type: subsequent encounter Fracture type: closed Fracture alignment: nondisplaced Fracture healing: with routine healing Qualified Code(s): S72.144D - Nondisplaced intertrochanteric fracture of right femur, subsequent encounter for closed fracture with routine healing Subjective Principal diagnosis: Right THR 08/13/17 Interval history: Right THR 08/13/17 POD#3 Patient doing well, still with baseline confusion, Pain controlled. Vitals stable. Afebrile. H/H - stable, 10.2- asymptomatic RLE: Minimal swelling, no erythema or ecchymosis noted. No calf tenderness or warmth noted. ROM limited. NV intact distally. Plan: Continue in with hip precautions x 6 weeks. . RLE: WBAT D/C to ECF - stable from orthopedic standpoint, hospitalist on board monitoring medical improvement. Objective Vital signs: Vital Signs Temp Pulse Resp BP Pulse Ox 08/15/17 23:56 98.0 F 89 18 149/82 95 08/15/17 21:01 98.5 F 74 16 163/83 96 08/15/17 18:33 159/71 08/15/17 15:10 98.2 F 69 18 166/71 08/15/17 13:00 98.4 F 77 18 168/74 92 08/15/17 12:45 98.4 F 18 152/73 08/15/17 12:00 98.0 F 84 16 146/73 95 Intake and Output 08/15/17 08/16/17 08/16/17 23:59 07:59 15:59 Output Total 550 / 550 0 / 0 Balance -550 / -550 0 / 0 Output: Catheter 550 / 550 0 / 0 Other: Stool Size Small Stool Consistency soft Stool Color Brown # Bowel Movements 1 Weight 66.678 kg Patient Weight 08/16/17 23:59 Weight 66.678 kg Incision: clean and dry - Labs CBC & BMP: 08/16/17 07:54 08/16/17 07:54 Labs: Abnormal lab results RBC 3.13 M/mcL (4.19-5.50) L 08/15/17 05:01 Hgb 9.0 g/dL (12.9-16.9) L 08/15/17 05:01 Hct 27.4 % (37.5-50.1) L 08/15/17 05:01 BUN/Creatinine Ratio 27 (6-26) H 08/15/17 05:01 Glucose 120 mg/dL (70-99) H 08/15/17 05:01 POC Glucose 113 (58-89) H 08/12/17 05:11 Calcium 8.2 mg/dL (8.6-10.8) L 08/15/17 05:01 Urine Protein 30 mg/dL (Neg-Trace) H 08/15/17 15:15 Urine Ketones 15 mg/dL (Negative) H 08/15/17 15:15 Urine Blood Small (Negative) H 08/15/17 15:15 Ur Squamous Epith Cells Many per lpf (None-Few) H 08/15/17 15:15 - VTE Documentation of Mechanical Device: Venous foot pump, device Consult Discharge Plan - Plan Additional Instructions: Discharge Instructions: Total Hip Replacement Please call [facility] ([phone]), your Primary Care Physician, or report to the Emergency Room if you have any of the following symptoms: Nausea, vomiting, fever greater that 101.5, swelling, chest pain, shortness of breath, increased pain/redness/drainage/odor for your incision site, numbness/ tingling, or any other concerning symptoms. ACTIVITY:Weight-bearing as tolerated for 8 weeks with hip dislocation precautions that physical therapy taught you. You may progress as tolerated under the guidance of your physical therapist. You do not need to sleep with a pillow between your legs. You can also seep on the operative side or on your stomach. MEDICATIONS: Upon discharge resume your home medications. Take all the medications as prescribed. Take a stool softener if taking narcotic pain medications. Stool softeners are only effective if you drink enough fluids. Drink 6-8 glass of water or fluids a day, unless this is not allowed for another health problem. Despite using stool softeners, if you haven't had a bowel movement in 3 days, please switch to a gentle laxative. Gentle laxatives are sold over the counter. You should have a bowel movement within 24 hours, if not call the office. You will be discharged from the hospital with a prescription for pain medication. You are encouraged to decrease the use of narcotic pain medication as tolerated. Should you require a refill, please call the office. [facility] prescribes narcotic pain medication for only 4-6 weeks after surgery. If you require pain medication beyond this time period, you may be referred to your Primary Care Physician or to the Pain Clinic for further evaluation. Plan ahead for refills on pain medication as many narcotics either need to be picked up at the office or mailed. It is best to call 48-72 hours in advance of needing a prescription refill so you don't run out of medication. To help control the post-operative pain, you may take NSAIDs (Aleve,Advil, Motrin, ibuprofen, naprosyn) or Tylenol as prescribed on the bottle in addition to the pain medication. ANTICOAGULATION (blood thinners): Continue your Aspirin, Lovenox or Coumadin as prescribed to help prevent a blood clot in the leg or in the lungs. As long as your incision remains dry and you tolerate the NSAIDs (Aleve, Advil, Motrin, Ibuprofen, Naprosyn), it is OK to use the NSAIDS while you are taking your anticoagulation medication. Should your incision start to drain, stop the NSAID and contact our office. Common symptoms of blood clot in the legs include: localized pain, swelling, calf tenderness, redness or discoloration of the skin. Blood clot in the lung symptoms include: shortness of breath, rapid pulse, sweating, and chest pain that worsens with deep breathing, coughing up blood, lightheadedness, feelings of anxiety. If you experience any of these symptoms notify your physician immediately, go to the emergency room, or if having trouble breathing, call 911. WOUND CARE: Leave the dressing on for 7 to 10days. You may change the dressing if it is saturated greater than 50%. Do not get the dressing wet at anytime. Wash your hands with antibacterial soap, rinse and dry prior to any wound care. If you have david the visiting nurse or rehab facility can remove the stapes 10-14 days [address] surgery [address] steri-strips across the wound. Leave the steri-strips in place until they fall off on their own. You may let water from the shower run on top of the steri-strips. If you do not have a visiting nurse or rehab facility, you will need to return to the office at 10-14 days for the david to be removed. If you have itching or redness around the dressing call the office. FOLLOW-UP: Please follow up with your surgeon in the orthopedic clinic in 6 weeks from the day of surgery. If you have david that need to be removed, you will need to come back to the office in 10-14 days from the day of surgery. Referrals: Daily Granger PAC [Physician Engine Cleaner] - 08/31/17 1:15 pm Rober Flores MD [Partnered Physician] - 09/11/17 9:40 am Joana Drummond PAC [Physician Engine Cleaner] - 08/23/17 2:45 pm Prescriptions: OxyCODONE Immed Rel [Roxicodone 5 MG] 5 - 10 mg PO Q6HR PRN #40 tablet PRN Reason: Pain Aspirin Enteric Coated [Aspirin EC] 325 mg PO DAILY #21 tablet. Doxycycline 100 mg PO BID #14 capsule
[2017-08-16] MEDS: Pregabalin 75 MG CAPSULE PO SCH ×3 (08:40→20:53)
[2017-08-16] MEDS: risperiDONE 0.25 MG TABLET PO SCH ×2 (08:40→20:52)
[2017-08-16] MEDS: *HR* OxyCODONE ER (12 HR) 20 MG TABLET PO SCH ×2 (08:40→20:53)
[2017-08-16] MEDS: Ascorbic Acid 500 MG TABLET PO SCH ×2 (08:52→17:43)
[2017-08-16] MEDS: Bisacodyl 10 MG RECTAL SUPPOSITORY RC SCH (08:52)
[2017-08-16] MEDS: Aspirin 81 MG TAB.CHEW PO SCH (08:52)
[2017-08-16] MEDS: Multivit/Ca/Min/Fe/FA 1 TAB TABLET PO SCH (08:53)
[2017-08-16] MEDS: (Fluticasone/Vilanterol [Breo Ellipta 200-25 Mcg Inh]) IH SCH (08:53)
[2017-08-16] MEDS: Cholecalciferol (D-3) 1,000 UNIT TABLET PO SCH (08:53)
--- NOTE | 2017-08-16 12:51 | Internal Med Progress Note ---
Date of Encounter: 08/16/17 Time of Encounter: 12:49 - Assessment and plan (1) Acute encephalopathy Status: Acute Assessment and plan: Likely postoperative delirium. Noted to be slowly improving with increased periods of being awake and alert. Hold IV narcotics and sedatives. Fall precautions. Labs and vital signs normal. Urinalysis reviewed, not suggestive of infection. Chest x-ray shows right infrahilar opacity, slightly worse from initial chest x-ray. Will start patient on IV Levaquin. Patient is noted to have bowel movements, abdominal KUB x-ray shows no acute abnormality. Currently stable, off one-on-one sitter. (2) Intertrochanteric fracture of right femur Status: Acute Assessment and plan: Orthopedic surgery on board. Status post right total hip replacement, postoperative day 3. Received 1 unit PRBC transfusion, hemoglobin responding appropriately. Pain control with Tylenol and oxycodone as needed. Improved tachycardia. Local wound care per orthopedics recommendations. Physical and occupational therapy evaluation completed, recommend placement in extended care facility. emergency services professional on board, patient has a place at local rehabilitation. Qualifiers: Encounter type: subsequent encounter Fracture type: closed Fracture alignment: nondisplaced Fracture healing: with routine healing Qualified Code(s): S72.144D - Nondisplaced intertrochanteric fracture of right femur, subsequent encounter for closed fracture with routine healing (3) COPD (chronic obstructive pulmonary disease) Status: Chronic Assessment and plan: Not noted to be in acute exacerbation. Continue when necessary bronchodilators and supplemental oxygen. Qualifiers: COPD type: unspecified COPD Qualified Code(s): J44.9 - Chronic obstructive pulmonary disease, unspecified (4) Osteoporosis Status: Chronic Qualifiers: Osteoporosis type: age-related Presence of current pathological fracture: unspecified Qualified Code(s): M81.0 - Age-related osteoporosis without current pathological fracture (5) BPH (benign prostatic hyperplasia) Status: Chronic Qualifiers: Lower urinary tract symptom presence: unspecified whether lower urinary tract symptoms present Qualified Code(s): N40.0 - Benign prostatic hyperplasia without lower urinary tract symptoms - Subjective Interval history: Remains asleep at this time, cannot provide history; spoke to patient's son at bedside; reports that patient has been awake earlier, improving, able to participate in PT, poor appetite; had bowel movement; - Constitutional Vitals: Temp Pulse Resp BP Pulse Ox 97.6 F 93 16 153/74 96 08/16/17 11:00 08/16/17 11:00 08/16/17 11:00 08/16/17 11:00 08/16/17 11:00 General appearance: Present: A&O X 0 (Slightly drowsy and somnolent). Absent: answers questions appropriately - Respiratory Respiratory exam: Present: CTAB (anterolaterally). Absent: accessory muscle use , rales, rhonchi, wheezes - Cardiovascular Cardiovascular exam: Present: RRR, +S1, +S2. Absent: diastolic murmur, gallop, rubs, systolic murmur - GI/Abdominal GI/Abdominal exam: Present: normal bowel sounds, soft (continues to wince and push away to deep palpation), no peritoneal signs. Absent: distended, tenderness Internal Medicine: Result - Labs CBC & Chem 7: 08/16/17 07:54 08/16/17 07:54 Labs: Short CBC 08/16/17 Range/Units 07:54 WBC 10.8 (4.3-11.1) K/mcL Hgb 10.1 L (12.9-16.9) g/dL Hct 30.2 L (37.5-50.1) % Plt Count 208 (140-400) K/mcL Neutrophils # 8.7 (1.6-8.9) K/mcL BMP 08/16/17 07:54 Sodium 139 Potassium 4.0 Chloride 106 Carbon Dioxide 23 BUN 30 H Creatinine 0.83 Glucose 118 H Calcium 8.4 L Urine 08/15/17 Range/Units 15:15 Urine Color Yellow (Yellow) Urine Clarity Clear (Clear) Urine pH 7.0 (5.0-8.0) pH Units Ur Specific [place] 1.018 (1.010-1.025) Urine Protein 30 H (Neg-Trace) mg/dL Urine Glucose (UA) Normal (Normal) mg/dL - ABG Interpretation ABG results: PT/INR, D-dimer PT 10.8 Seconds (9.4-12.1) 08/11/17 22:43 - Impressions Impressions Chest X-Ray 08/15/17 15:03 IMPRESSION: Suggestion of a right infrahilar opacity, which may suggest focal pneumonia or atelectasis. That should be followed to resolution. D/ / Seth Montemayor MD / Seth Montemayor MD Interpreting Provider: Seth Montemayor MD X-Ray 08/15/17 15:04 IMPRESSION: Postsurgical changes right hip arthroplasty, not substantially changed. D/ / Aaliyah Stevens MD / Aaliyah Stevens MD Interpreting Provider: Aaliyah Stevens MD - VTE Documentation of Mechanical Device: Venous foot pump, device Consult Discharge Plan - Plan Instructions: Doxycycline (By mouth), Aspirin (By mouth), Oxycodone, Rapid Release (By mouth), Total Hip Replacement (DC) Additional Instructions: Discharge Instructions: Total Hip Replacement Please call [facility] ([phone]), your Primary Care Physician, or report to the Emergency Room if you have any of the following symptoms: Nausea, vomiting, fever greater that 101.5, swelling, chest pain, shortness of breath, increased pain/redness/drainage/odor for your incision site, numbness/ tingling, or any other concerning symptoms. ACTIVITY:Weight-bearing as tolerated for 8 weeks with hip dislocation precautions that physical therapy taught you. You may progress as tolerated under the guidance of your physical therapist. You do not need to sleep with a pillow between your legs. You can also seep on the operative side or on your stomach. MEDICATIONS: Upon discharge resume your home medications. Take all the medications as prescribed. Take a stool softener if taking narcotic pain medications. Stool softeners are only effective if you drink enough fluids. Drink 6-8 glass of water or fluids a day, unless this is not allowed for another health problem. Despite using stool softeners, if you haven't had a bowel movement in 3 days, please switch to a gentle laxative. Gentle laxatives are sold over the counter. You should have a bowel movement within 24 hours, if not call the office. You will be discharged from the hospital with a prescription for pain medication. You are encouraged to decrease the use of narcotic pain medication as tolerated. Should you require a refill, please call the office. [facility] prescribes narcotic pain medication for only 4-6 weeks after surgery. If you require pain medication beyond this time period, you may be referred to your Primary Care Physician or to the Pain Clinic for further evaluation. Plan ahead for refills on pain medication as many narcotics either need to be picked up at the office or mailed. It is best to call 48-72 hours in advance of needing a prescription refill so you don't run out of medication. To help control the post-operative pain, you may take NSAIDs (Aleve,Advil, Motrin, ibuprofen, naprosyn) or Tylenol as prescribed on the bottle in addition to the pain medication. ANTICOAGULATION (blood thinners): Continue your Aspirin, Lovenox or Coumadin as prescribed to help prevent a blood clot in the leg or in the lungs. As long as your incision remains dry and you tolerate the NSAIDs (Aleve, Advil, Motrin, Ibuprofen, Naprosyn), it is OK to use the NSAIDS while you are taking your anticoagulation medication. Should your incision start to drain, stop the NSAID and contact our office. Common symptoms of blood clot in the legs include: localized pain, swelling, calf tenderness, redness or discoloration of the skin. Blood clot in the lung symptoms include: shortness of breath, rapid pulse, sweating, and chest pain that worsens with deep breathing, coughing up blood, lightheadedness, feelings of anxiety. If you experience any of these symptoms notify your physician immediately, go to the emergency room, or if having trouble breathing, call 911. WOUND CARE: Leave the dressing on for 7 to 10days. You may change the dressing if it is saturated greater than 50%. Do not get the dressing wet at anytime. Wash your hands with antibacterial soap, rinse and dry prior to any wound care. If you have david the visiting nurse or rehab facility can remove the stapes 10-14 days [address] surgery [address] steri-strips across the wound. Leave the steri-strips in place until they fall off on their own. You may let water from the shower run on top of the steri-strips. If you do not have a visiting nurse or rehab facility, you will need to return to the office at 10-14 days for the david to be removed. If you have itching or redness around the dressing call the office. FOLLOW-UP: Please follow up with your surgeon in the orthopedic clinic in 6 weeks from the day of surgery. If you have david that need to be removed, you will need to come back to the office in 10-14 days from the day of surgery. Referrals: Daily Granger PAC [Physician Central Supply Technician] - 08/31/17 1:15 pm Rober Flores MD [Partnered Physician] - 09/11/17 9:40 am Joana Drummond PAC [Physician Central Supply Technician] - 08/23/17 2:45 pm Prescriptions: OxyCODONE Immed Rel [Roxicodone 5 MG] 5 - 10 mg PO Q6HR PRN #40 tablet PRN Reason: Pain Aspirin Enteric Coated [Aspirin EC] 325 mg PO DAILY #21 tablet. Doxycycline 100 mg PO BID #14 capsule
[2017-08-16] MEDS: Levofloxacin 500 MG/100 ML 500 MG/100 ML BAG IVPB SCH (13:17)
[2017-08-16] MEDS: Methyl Salicylate/Menthol 28 GM TUBE TP PRN (15:26)
[2017-08-17] MEDS: (Fluticasone/Vilanterol [Breo Ellipta 200-25 Mcg Inh]) IH SCH ×2 (00:09→10:20)
[2017-08-17] MEDS: *HR* OxyCODONE/APAP 5/325 TABLET PO PRN (06:18)
[2017-08-17] MEDS: Famotidine 20 MG/2 ML VIAL IVP SCH (06:19)
--- NOTE | 2017-08-17 06:32 | Orthopedics Progress Note ---
Date of Encounter: 08/17/17 Time of Encounter: 06:31 Subjective Principal diagnosis: Right THR 08/13/17 Interval history: Patient was seen this morning more alert Afebrile vital signs stable. Operative extremity: Neurovascularly intact Dressing clean dry and intact Calves nontender Assessment and plan: Continue with postoperative care stable for dc Objective Vital signs: Vital Signs Temp Pulse Resp BP Pulse Ox 08/17/17 04:14 98.1 F 69 16 129/74 93 08/16/17 23:35 98.5 F 75 17 128/77 93 08/16/17 20:55 98.0 F 90 19 151/73 95 08/16/17 14:38 97.9 F 87 16 158/68 95 08/16/17 11:00 97.6 F 93 16 153/74 96 08/16/17 07:00 97.8 F 87 16 143/76 95 Intake and Output 08/16/17 08/16/17 08/17/17 15:59 23:59 07:59 Intake Total 220 / 220 Output Total 525 / 525 475 / 475 Balance -305 / -305 -475 / -475 Intake: IV Fluids 100 / 100 Levaquin Premix 500mg/100mL 500 100 / 100 mg In 100 ml @ 100 mls/hr IVPB DAILY [facility] Rx#:[id number] Oral 120 / 120 Output: Catheter 525 / 525 475 / 475 Other: Meal Lunch Percent of Meal Consumed 10% Stool Size Moderate Stool Consistency formed Stool Characteristics Normal for Patient # Bowel Movements 1 Weight 66.72 kg Patient Weight 08/17/17 23:59 Weight 66.72 kg - Labs CBC & BMP: 08/16/17 07:54 08/16/17 07:54 Labs: Abnormal lab results RBC 3.52 M/mcL (4.19-5.50) L 08/16/17 07:54 Hgb 10.1 g/dL (12.9-16.9) L 08/16/17 07:54 Hct 30.2 % (37.5-50.1) L 08/16/17 07:54 Nucleated RBCs/100 WBC 0.3 /100 WBC (0) H 08/16/17 07:54 BUN 30 mg/dL (8-26) H 08/16/17 07:54 BUN/Creatinine Ratio 36 (6-26) H 08/16/17 07:54 Glucose 118 mg/dL (70-99) H 08/16/17 07:54 POC Glucose 113 (58-89) H 08/12/17 05:11 Calcium 8.4 mg/dL (8.6-10.8) L 08/16/17 07:54 Urine Protein 30 mg/dL (Neg-Trace) H 08/15/17 15:15 Urine Ketones 15 mg/dL (Negative) H 08/15/17 15:15 Urine Blood Small (Negative) H 08/15/17 15:15 Ur Squamous Epith Cells Many per lpf (None-Few) H 08/15/17 15:15 - VTE Documentation of Mechanical Device: Venous foot pump, device Consult Discharge Plan - Plan Additional Instructions: Discharge Instructions: Total Hip Replacement Please call [facility] ([phone]), your Primary Care Physician, or report to the Emergency Room if you have any of the following symptoms: Nausea, vomiting, fever greater that 101.5, swelling, chest pain, shortness of breath, increased pain/redness/drainage/odor for your incision site, numbness/ tingling, or any other concerning symptoms. ACTIVITY:Weight-bearing as tolerated for 8 weeks with hip dislocation precautions that physical therapy taught you. You may progress as tolerated under the guidance of your physical therapist. You do not need to sleep with a pillow between your legs. You can also seep on the operative side or on your stomach. MEDICATIONS: Upon discharge resume your home medications. Take all the medications as prescribed. Take a stool softener if taking narcotic pain medications. Stool softeners are only effective if you drink enough fluids. Drink 6-8 glass of water or fluids a day, unless this is not allowed for another health problem. Despite using stool softeners, if you haven't had a bowel movement in 3 days, please switch to a gentle laxative. Gentle laxatives are sold over the counter. You should have a bowel movement within 24 hours, if not call the office. You will be discharged from the hospital with a prescription for pain medication. You are encouraged to decrease the use of narcotic pain medication as tolerated. Should you require a refill, please call the office. [facility] prescribes narcotic pain medication for only 4-6 weeks after surgery. If you require pain medication beyond this time period, you may be referred to your Primary Care Physician or to the Pain Clinic for further evaluation. Plan ahead for refills on pain medication as many narcotics either need to be picked up at the office or mailed. It is best to call 48-72 hours in advance of needing a prescription refill so you don't run out of medication. To help control the post-operative pain, you may take NSAIDs (Aleve,Advil, Motrin, ibuprofen, naprosyn) or Tylenol as prescribed on the bottle in addition to the pain medication. ANTICOAGULATION (blood thinners): Continue your Aspirin, Lovenox or Coumadin as prescribed to help prevent a blood clot in the leg or in the lungs. As long as your incision remains dry and you tolerate the NSAIDs (Aleve, Advil, Motrin, Ibuprofen, Naprosyn), it is OK to use the NSAIDS while you are taking your anticoagulation medication. Should your incision start to drain, stop the NSAID and contact our office. Common symptoms of blood clot in the legs include: localized pain, swelling, calf tenderness, redness or discoloration of the skin. Blood clot in the lung symptoms include: shortness of breath, rapid pulse, sweating, and chest pain that worsens with deep breathing, coughing up blood, lightheadedness, feelings of anxiety. If you experience any of these symptoms notify your physician immediately, go to the emergency room, or if having trouble breathing, call 911. WOUND CARE: Leave the dressing on for 7 to 10days. You may change the dressing if it is saturated greater than 50%. Do not get the dressing wet at anytime. Wash your hands with antibacterial soap, rinse and dry prior to any wound care. If you have david the visiting nurse or rehab facility can remove the stapes 10-14 [address] surgery [address] steri-strips across the wound. Leave the steri-strips in place until they fall off on their own. You may let water from the shower run on top of the steri-strips. If you do not have a visiting nurse or rehab facility, you will need to return to the office at 10-14 days for the david to be removed. If you have itching or redness around the dressing call the office. FOLLOW-UP: Please follow up with your surgeon in the orthopedic clinic in 6 weeks from the day of surgery. If you have david that need to be removed, you will need to come back to the office in 10-14 days from the day of surgery. Referrals: Daily Granger PAC [Physician Child And Family Therapist] - 08/31/17 1:15 pm Rober Flores MD [Partnered Physician] - 09/11/17 9:40 am Joana Drummond PAC [Physician Child And Family Therapist] - 08/23/17 2:45 pm Prescriptions: Aspirin Enteric Coated [Aspirin EC] 325 mg PO DAILY #21 tablet. Doxycycline 100 mg PO BID #14 capsule OxyCODONE Immed Rel [Roxicodone 5 MG] 5 - 10 mg PO Q6HR PRN #40 tablet PRN Reason: Pain
[2017-08-17] MEDS: Aspirin 81 MG TAB.CHEW PO SCH (10:18)
[2017-08-17] MEDS: Bisacodyl 10 MG RECTAL SUPPOSITORY RC SCH (10:19)
[2017-08-17] MEDS: Ascorbic Acid 500 MG TABLET PO SCH (10:19)
[2017-08-17] MEDS: Cholecalciferol (D-3) 1,000 UNIT TABLET PO SCH (10:19)
[2017-08-17] MEDS: Multivit/Ca/Min/Fe/FA 1 TAB TABLET PO SCH (10:19)
[2017-08-17] MEDS: Levofloxacin 500 MG/100 ML 500 MG/100 ML BAG IVPB SCH (10:20)
[2017-08-17] MEDS: *HR* OxyCODONE ER (12 HR) 20 MG TABLET PO SCH (10:21)
[2017-08-17] MEDS: risperiDONE 0.25 MG TABLET PO SCH (10:21)
[2017-08-17] MEDS: Pregabalin 75 MG CAPSULE PO SCH (10:21)
--- NOTE | 2017-08-17 11:30 | Event Note ---
Date of Encounter: 08/17/17 Time of Encounter: 11:30 PCR -Right Hip Fracture - Right THR 08/13/17 POD#4 Patient seen at bedside, son at bedside. Son states father has been more coherent and verbal though states he is still "talking out of his head". Labs: H/H stable 08/17/17- patient received 1 unit PRBCs 08/15/17. Pain control: adequate Participating in PT. All questions and concerns addressed. Educated on use of incentive spirometer, ambulation, and hydration. Patient educated on post-operative restrictions and care. Addressed: He will be discharged on Doxycycline 100mg BID x 7 days secondary to high infection risk with prolonged hospitalization and fracture. These will be upon discharge only as patient received Ancef per post-operative protocol. D/w nursing re: dressing - Requested they cleanse wound and replace honeycomb opsite prior to patient discharge. D/C plan:. [facility] Patient to be on total hip precautions. Hip abduction pillow to be worn while laying/sleeping. PT/OT with WBAT. Dressing to be left intact until in office follow up with [facility]. If becomes 50% or greater saturated honeycomb opsite to be changed and appropriate dressing replaced. Any incision or surgical concerns to be addressed by [facility]. Keep in office f/u with [facility] as scheduled.
[2017-08-17 11:52] VITALS: BP 126/79
--- NOTE | 2017-08-17 12:35 | Discharge Summary ---
Date of Encounter: 08/17/17 Time of Encounter: 11:00 - Discharge Diagnosis (1) Acute encephalopathy Priority: Primary Status: Acute (2) Intertrochanteric fracture of right femur Priority: Primary Status: Acute Qualifiers: Encounter type: subsequent encounter Fracture type: closed Fracture alignment: nondisplaced Fracture healing: with routine healing Qualified Code(s): S72.144D - Nondisplaced intertrochanteric fracture of right femur, subsequent encounter for closed fracture with routine healing (3) COPD (chronic obstructive pulmonary disease) Priority: Secondary Status: Chronic Qualifiers: COPD type: unspecified COPD Qualified Code(s): J44.9 - Chronic obstructive pulmonary disease, unspecified (4) Osteoporosis Priority: Secondary Status: Chronic Qualifiers: Osteoporosis type: age-related Presence of current pathological fracture: unspecified Qualified Code(s): M81.0 - Age-related osteoporosis without current pathological fracture (5) BPH (benign prostatic hyperplasia) Priority: Secondary Status: Chronic Qualifiers: Lower urinary tract symptom presence: unspecified whether lower urinary tract symptoms present Qualified Code(s): N40.0 - Benign prostatic hyperplasia without lower urinary tract symptoms (6) Pneumonia Priority: Primary Status: Acute Qualifiers: Pneumonia type: due to unspecified organism Laterality: right Lung location: lower lobe of lung Qualified Code(s): J18.1 - Lobar pneumonia, unspecified organism - Discharge Medications Prescriptions: OxyCODONE Immed Rel [Roxicodone 5 MG] 5 - 10 mg PO Q6HR PRN #40 tablet PRN Reason: Pain Aspirin Enteric Coated [Aspirin EC] 325 mg PO DAILY #21 tablet. Doxycycline 100 mg PO BID #14 capsule Home Medications: Celecoxib [Celebrex] 200 mg PO DAILY 08/12/17 [History] Cholecalciferol (D-3) [Vitamin D] 1,000 unit PO DAILY 08/12/17 [History] Fluticasone/Vilanterol [Breo Ellipta 200-25 Mcg INH] 1 puff IH BID 08/12/17 [ History] Ipratropium/Albuterol Sulfate [Combivent Respimat Inhal [place]] 2 puff IH Q6H PRN 08/12/17 [History] Pantoprazole Sodium 40 mg PO DAILY 08/12/17 [History] Pregabalin [Lyrica] 75 mg PO TID 08/12/17 [History] Simvastatin [Zocor] 40 mg PO HS 08/12/17 [History] Tamsulosin [Flomax] 0.4 mg PO DAILY 08/12/17 [History] Aspirin Enteric Coated [Aspirin EC] 325 mg PO DAILY #21 tablet. 08/13/17 [Rx] Doxycycline 100 mg PO BID #14 capsule 08/13/17 [Rx] OxyCODONE Immed Rel [Roxicodone 5 MG] 5 - 10 mg PO Q6HR PRN #40 tablet 08/13/17 [Rx] Metoprolol [Lopressor] 12.5 mg PO BID tablet 08/17/17 [Rx] Oxycodone HCl [Oxycontin] 20 mg PO BID #14 08/17/17 [Rx] risperiDONE [RisperDAL] 0.5 mg PO BID #30 tablet 08/17/17 [Rx] Allergies/Adverse Reactions: 3 Allergy/AdvReac Type Severity Reaction Status Date / Time Penicillins [PCN] Allergy Mild See Verified 08/13/17 19:05 Comments Sulfa (Sulfonamide Allergy See Verified 08/12/17 11:18 Antibiotics) Comments haloperidol [From Haldol] AdvReac Agitated Verified 08/13/17 19:05 Date of admission: 08/12/17 00:36 Primary care physician: Aj Snyder Consults: 08/13/17 17:12 Consult to Nurse Navigator [CONS] Routine Comment: ortho navigator Consult to Occupational Therapy [CONS] Routine Comment: Evaluate, develop and implement POC Reason for Consult: total hip replacement Consult to Physical Therapy [CONS] Routine Comment: Evaluate, develop and implement POC Reason for Consult: total hip replacement Consult to Special Delivery Worker [CONS] Routine Reason for SW Consult: post op joint replacement RT Post Op Consult [CONS] Routine 08/15/17 15:35 Consult to Speech Therapy [CONS] Routine Comment: Evaluate, develop and implement POC Reason for Consult: swallow eval Call Completed: Yes Discharging clinician: Phyllis Gallardo Anticipated date of discharge: 08/17/17 - Patient Status Disposition: Transfer SNF Condition: Fair Functional capacity at discharge: uses cane/walker Overall status at discharge: patient is progressing back to baseline - Discharge Instructions Instructions: Doxycycline (By mouth), Aspirin (By mouth), Oxycodone, Rapid Release (By mouth), Total Hip Replacement (DC) Follow Up With: Daily Granger PAC [Physician [employer] Turb[employer] Sheet Metal Worker] - 08/31/17 1:15 pm Rober Flores MD [Partnered Physician] - 09/11/17 9:40 am Joana Drummond PAC [Physician [employer] T[employer]ine Sheet Metal Worker] - 08/23/17 2:45 pm Additional Instructions: Discharge Instructions: Total Hip Replacement Please call [facility] ([phone]), your Primary Care Physician, or report to the Emergency Room if you have any of the following symptoms: Nausea, vomiting, fever greater that 101.5, swelling, chest pain, shortness of breath, increased pain/redness/drainage/odor for your incision site, numbness/ tingling, or any other concerning symptoms. ACTIVITY:Weight-bearing as tolerated for 8 weeks with hip dislocation precautions that physical therapy taught you. You may progress as tolerated under the guidance of your physical therapist. You do not need to sleep with a pillow between your legs. You can also seep on the operative side or on your stomach. MEDICATIONS: Upon discharge resume your home medications. Take all the medications as prescribed. Take a stool softener if taking narcotic pain medications. Stool softeners are only effective if you drink enough fluids. Drink 6-8 glass of water or fluids a day, unless this is not allowed for another health problem. Despite using stool softeners, if you haven't had a bowel movement in 3 days, please switch to a gentle laxative. Gentle laxatives are sold over the counter. You should have a bowel movement within 24 hours, if not call the office. You will be discharged from the hospital with a prescription for pain medication. You are encouraged to decrease the use of narcotic pain medication as tolerated. Should you require a refill, please call the office. [facility] prescribes narcotic pain medication for only 4-6 weeks after surgery. If you require pain medication beyond this time period, you may be referred to your Primary Care Physician or to the Pain Clinic for further evaluation. Plan ahead for refills on pain medication as many narcotics either need to be picked up at the office or mailed. It is best to call 48-72 hours in advance of needing a prescription refill so you don't run out of medication. To help control the post-operative pain, you may take NSAIDs (Aleve,Advil, Motrin, ibuprofen, naprosyn) or Tylenol as prescribed on the bottle in addition to the pain medication. ANTICOAGULATION (blood thinners): Continue your Aspirin, Lovenox or Coumadin as prescribed to help prevent a blood clot in the leg or in the lungs. As long as your incision remains dry and you tolerate the NSAIDs (Aleve, Advil, Motrin, Ibuprofen, Naprosyn), it is OK to use the NSAIDS while you are taking your anticoagulation medication. Should your incision start to drain, stop the NSAID and contact our office. Common symptoms of blood clot in the legs include: localized pain, swelling, calf tenderness, redness or discoloration of the skin. Blood clot in the lung symptoms include: shortness of breath, rapid pulse, sweating, and chest pain that worsens with deep breathing, coughing up blood, lightheadedness, feelings of anxiety. If you experience any of these symptoms notify your physician immediately, go to the emergency room, or if having trouble breathing, call 911. WOUND CARE: Leave the dressing on for 7 to 10days. You may change the dressing if it is saturated greater than 50%. Do not get the dressing wet at anytime. Wash your hands with antibacterial soap, rinse and dry prior to any wound care. If you have david the visiting nurse or rehab facility can remove the stapes 10-14 days after surgery and place steri-strips across the wound. Leave the steri-strips in place until they fall off on their own. You may let water from the shower run on top of the steri-strips. If you do not have a visiting nurse or rehab facility, you will need to return to the office at 10-14 days for the david to be removed. If you have itching or redness around the dressing call the office. FOLLOW-UP: Please follow up with your surgeon in the orthopedic clinic in 6 weeks from the day of surgery. If you have david that need to be removed, you will need to come back to the office in 10-14 days from the day of surgery. - Diet and Activity Activity: as per physical therapy Diet: low fat, low cholesterol, low salt diet Hospital course: Mr. Buckner is a 81 year old male with the above medical problems who presented with acute on chronic right hip pain after sustaining a mechanical fall at home. Patient was noted to have right femoral intertrochanteric fracture. Orthopedic surgery was consulted and patient underwent total hip replacement on the right side. His postoperative course was complicated with acute delirium. Sepsis workup was completed and chest x-ray showed worsening of right infrahilar infiltrate and patient was started on IV Levaquin. He was noted to have postoperative anemia and received 1 unit PRBC transfusion with appropriate response. His mental status gradually began to improve and is currently almost at baseline. Physical and occupational therapy evaluation was completed and recommended placement in extended care facility for continued rehabilitation. donor services technician was on board. Patient is currently medically stable to be transferred to a long term. - Time Spent with Patient Total time spent providing and/or coordinating discharge services: Greater than 30 minutes (45 min) - Constitutional Vitals: Temp Pulse Resp BP Pulse Ox 97.7 F 86 18 126/79 95 08/17/17 09:30 08/17/17 09:30 08/17/17 09:30 08/17/17 09:30 08/17/17 09:30 General appearance: Present: A&O X 2 (still somewhat confused, rambles) - Cardiovascular Cardiovascular exam: Present: RRR, +S1, +S2. Absent: diastolic murmur, gallop, rubs, systolic murmur - VTE Documentation of Mechanical Device: Venous foot pump, device
--- NOTE | 2017-08-17 12:38 | Physician Discharge Referral ---
ExtendedCare Referral Info Transfer To: [facility] Provider in Charge: Phyllis Gallardo Provider in Charge after Transfer: PCP Institutional Level of Care: Skilled - Diagnosis (1) Acute encephalopathy Priority: Primary Status: Acute (2) Intertrochanteric fracture of right femur Priority: Primary Status: Acute (3) COPD (chronic obstructive pulmonary disease) Priority: Secondary Status: Chronic (4) Osteoporosis Priority: Secondary Status: Chronic (5) BPH (benign prostatic hyperplasia) Priority: Secondary Status: Chronic (6) Pneumonia Priority: Primary Status: Acute Expected Duration of Placement: 3 weeks Prognosis: Fair Aware of Diagnosis: Family Aware of Prognosis: Family - Transfer Medications Prescriptions: OxyCODONE Immed Rel [Roxicodone 5 MG] 5 - 10 mg PO Q6HR PRN #40 tablet PRN Reason: Pain Aspirin Enteric Coated [Aspirin EC] 325 mg PO DAILY #21 tablet. Doxycycline 100 mg PO BID #14 capsule Home Medications: Celecoxib [Celebrex] 200 mg PO DAILY 08/12/17 [History] Cholecalciferol (D-3) [Vitamin D] 1,000 unit PO DAILY 08/12/17 [History] Fluticasone/Vilanterol [Breo Ellipta 200-25 Mcg INH] 1 puff IH BID 08/12/17 [ History] Ipratropium/Albuterol Sulfate [Combivent Respimat Inhal [place]] 2 puff IH Q6H PRN 08/12/17 [History] Pantoprazole Sodium 40 mg PO DAILY 08/12/17 [History] Pregabalin [Lyrica] 75 mg PO TID 08/12/17 [History] Simvastatin [Zocor] 40 mg PO HS 08/12/17 [History] Tamsulosin [Flomax] 0.4 mg PO DAILY 08/12/17 [History] Aspirin Enteric Coated [Aspirin EC] 325 mg PO DAILY #21 tablet. 08/13/17 [Rx] Doxycycline 100 mg PO BID #14 capsule 08/13/17 [Rx] OxyCODONE Immed Rel [Roxicodone 5 MG] 5 - 10 mg PO Q6HR PRN #40 tablet 08/13/17 [Rx] Metoprolol [Lopressor] 12.5 mg PO BID tablet 08/17/17 [Rx] Oxycodone HCl [Oxycontin] 20 mg PO BID #14 08/17/17 [Rx] risperiDONE [RisperDAL] 0.5 mg PO BID #30 tablet 08/17/17 [Rx] Allergies/Adverse Reactions: 3 Allergy/AdvReac Type Severity Reaction Status Date / Time Penicillins [PCN] Allergy Mild See Verified 08/13/17 19:05 Comments Sulfa (Sulfonamide Allergy See Verified 08/12/17 11:18 Antibiotics) Comments haloperidol [From Haldol] AdvReac Agitated Verified 08/13/17 19:05 - Respiratory Orders Smoking Cessation: Smoking cessation has been advised. For more information, call the [place] Tobacco Quit Line at 1-905-ZRXG-NOW. - Advance Directives Code Status: Full Code - Mobility Orders Ambulate - Rehabiliation Orders Rehab Orders: ROM Exercises, Evaluation for Physical Therapy, Evaluation for Occupational Therapy - Diet Orders No Added Salt (DAISY), Cardiac CERTIFICATION: I certify that the transfer of the above named patient to an Extended Care Facility is necessary for the continuing treatment of the diagnosis listed. The above information is true and accurate reflection of patient's current condition. Confidential - Redisclosure prohibited without a patient's written consent.
== END 2017-08-17 15:28 | DRG 469 ==
LOC: EMEROO 21:23 → SUATTDRO 08-12 00:36 → 3NENU 08-12 00:36
PROVIDERS: ADMIT Family Medicine; ATTEND Internal Medicine

== ENCOUNTER 2017-10-04 08:33 | Inpatient (IN) ==
[2017-10-04] MEDS ORDERED: 0.9 % Sodium Chloride 1,000 ML IVC ONE (09:30)
--- NOTE | 2017-10-04 09:34 | Emergency Department Note ---
Disposition Clinical Impression: HAP (hospital-acquired pneumonia) Disposition: Admitted As Inpatient Condition: Undetermined SOB HPI - General Chief Complaint: ED Shortness of Breath/Dyspnea Stated Complaint: Cough,fever,NIKKO Time Seen by Provider: 10/04/17 08:53 Source: patient, family Mode of arrival: private vehicle Limitations: no limitations Nursing Notes Reviewed: Yes Vital Signs Reviewed: Yes - History of Present Illness Pt Subjective Complaint: shortness of breath, cough (and fever) Onset (ago): day(s) (2-3) Context: recent illness, other (Recently d/c'd from rehab facility - 2 weeks ago. Was there for 5 weeks s/p THR in July) Severity: mild (improved), moderate Consistency/Duration: now resolved Improves with: oxygen, rest, bronchodilators Worsens with: lying flat, coughing, other ("Phlegm in lungs") Known history of: COPD Associated symptoms: Reports: fever, cough, sputum production, orthopnea. Denies: chest pain, pain with inspiration, wheezing, lower extremity pain, polyuria, polydipsia, parasthesias, palpitations, hemoptysis, diaphoresis, nausea/vomiting, syncope, abdominal pain, rash, sense of impending doom Treatment prior to arrival: bronchodilator Cough present: Yes Cough Description: Voluntary, Involuntary, Productive, Weak Cough Frequency: Intermittent Sputum production: Yes Sputum Amount: Moderate Sputum Color: Green - Related Data Home oxygen amount: none Home Medications Medication Instructions Recorded Confirmed Celecoxib [Celebrex] 200 mg PO DAILY 08/12/17 10/04/17 Cholecalciferol (D-3) [Vitamin D] 5,000 unit PO DAILY 08/12/17 10/04/17 Fluticasone/Vilanterol [Breo 1 puff IH BID 08/12/17 10/04/17 Ellipta 200-25 Mcg INH] Ipratropium/Albuterol Sulfate 2 puff IH Q6H PRN 08/12/17 10/04/17 [Combivent Respimat Inhal [place]] Pantoprazole Sodium 40 mg PO DAILY 08/12/17 10/04/17 Pregabalin [Lyrica] 75 mg PO TID 08/12/17 10/04/17 Simvastatin [Zocor] 40 mg PO HS 08/12/17 10/04/17 Tamsulosin [Flomax] 0.4 mg PO DAILY 08/12/17 10/04/17 Memantine [Namenda] 5 mg PO HS 10/04/17 10/04/17 Oxycodone HCl/Acetaminophen 1 tab PO Q8H 10/04/17 10/04/17 [Percocet 10-325 mg Tablet] Previous Rx's Medication Instructions Recorded Aspirin Enteric Coated [Aspirin EC] 325 mg PO DAILY #21 tablet. 08/13/17 Allergies Allergy/AdvReac Type Severity Reaction Status Date / Time Penicillins [PCN] Allergy Mild See Verified 10/04/17 08:41 Comments Sulfa (Sulfonamide Allergy See Verified 10/04/17 08:41 Antibiotics) Comments haloperidol [From Haldol] AdvReac Agitated Verified 10/04/17 08:41 All systems ED: reviewed and negative except as stated. Review of Systems: As Per HPI Constitutional: Reports: as per HPI, fever, weakness. Denies: chills, weight change, night sweats Eyes: Denies: eye pain, eye discharge, vision change ENT ED: Reports: as per HPI, congestion. Denies: ear pain, throat pain, dysphagia Cardiovascular: Reports: dyspnea on exertion, orthopnea. Denies: chest pain, palpitations, edema, syncope, paroxysmal nocturnal dyspnea Respiratory: Reports: as per HPI, cough, dyspnea, sputum production. Denies: wheezes, hemoptysis, stridor Gastrointestinal: Denies: abdominal pain, nausea, vomiting Musculoskeletal: Denies: back pain, neck pain, joint swelling Integumentary: Denies: rash Neurological: Denies: headache, weakness, numbness, paresthesias, confusion, vertigo Hematological/Lymphatic: Denies: easy bleeding, easy bruising Past Medical History - Past Medical History Attestation: Yes The following information was validated with the patient. Source: obtained from family Medical history: Reports: arthritis, COPD, coronary artery disease, dementia Surgical history: Reports: hip replacement (Jul 2017) Psychiatric history: Reports: no psych history - Social History Smoking Status: Former smoker (Quit 40 years ago) Smokeless Tobacco Status: No Alcohol use: Reports: none Drug use: Reports: none Physical Exam - General Limitations: no limitations General appearance: alert, in no apparent distress - Head Head exam: atraumatic, normocephalic, normal inspection - Eye Eye exam: Present: normal appearance, PERRL. Absent: scleral icterus, conjunctival injection, periorbital swelling - ENT ENT exam: normal oropharynx, mucous membranes dry - Neck Neck exam: Present: normal inspection, full ROM, trachea midline. Absent: meningismus - Chest Chest inspection: Present: normal inspection, symmetric chest wall rise. Absent : tenderness - Respiratory Respiratory exam: Absent: respiratory distress, wheezes, stridor, accessory muscle use, prolonged expiratory phase - Expanded Respiratory Exam Location: rhonchi: Right, Left, Lower - Cardiovascular Cardiovascular exam: Present: regular rate, normal rhythm - Abdominal Exam Abdominal exam: Present: soft, Non-Tender. Absent: distention, mass - Extremities Exam Extremities exam: Present: normal capillary refill. Absent: pedal edema, joint swelling, calf tenderness - Back Exam Back exam: Present: normal inspection. Absent: tenderness - Neurological Exam Neurological exam: Present: alert, oriented X3, CN II-XII intact - Psychiatric Psychiatric exam: Present: normal affect, normal mood - Skin Skin exam: Present: warm, dry, intact, normal color Course Course Narrative: Patient was brought in by family for evaluation of shortness of breath, cough and fever. He has been feeling ill for about two or three days and last night he had a fever and a very productive cough. He states that he was having a lot of trouble breathing and then coughed up a large amount of phlegm which did help a little. He was able to sleep, but this morning he had more phlegm and felt short of breath again. He has a history of COPD diagnosed 40 years ago. At that point he stopped smoking and rarely has to use his inhalers. He cannot recall the last time he had to take steroids. He denies hemoptysis, dizziness, vertigo, syncope, chest pain, calf pain or swelling. He had a total hip replacement in July and was in a rehabilitation facility for five weeks. He has been home for two weeks. He has history of dementia and thus sometimes provides inaccurate temporal history. His family is very close to him and they are able to augment the history. On exam, patient has oxygen saturation of 96% on room air. He is currently afebrile with normal blood pressure. He has bilateral coarse rhonchi. Labs and x-ray been ordered. History is consistent with an infectious process. He does have risk for ACS and PE. However, he does not seem to be presenting with symptoms consistent with either of those. Chest x-ray shows bilateral lower lung opacities. Blood cultures have been ordered. Empiric Antibiotics for treatment of hospital-acquired pneumonia have been ordered. Case has been discussed with Dr. alfredo. She has had face-to- face time with the patient and agrees with the assessment, plan. She also added meropenem. The hospitalist is currently making rounds on the floor and has notified us that he will discuss the case when he returns Vital Signs Temperature 97.7 F 10/04/17 08:41 Pulse Rate 81 10/04/17 08:41 Respiratory Rate 20 10/04/17 08:41 Blood Pressure 166/75 10/04/17 08:41 O2 Sat by Pulse Oximetry 93 10/04/17 08:41 Temperature 97.7 F 10/04/17 08:41 Pulse Rate 81 10/04/17 08:41 Respiratory Rate 18 10/04/17 11:34 Blood Pressure 171/81 10/04/17 11:34 O2 Sat by Pulse Oximetry 93 10/04/17 08:41 Oxygen Delivery Oxygen Delivery Room Air Shortness of Breath/Dyspnea - Medical Records Medical records reviewed: Yes I reviewed the patient's medical records. - Lab Data Lab results reviewed: Yes I reviewed the patient's lab results. Lab results narrative: Laboratory Last Values WBC 10.2 K/mcL (4.3-11.1) 10/04/17 09:41 RBC 4.38 M/mcL (4.19-5.50) 10/04/17 09:41 Hgb 13.0 g/dL (12.9-16.9) 10/04/17 09:41 Hct 40.4 % (37.5-50.1) 10/04/17 09:41 MCV 92.2 fL (83.0-100.0) 10/04/17 09:41 MCH 29.7 pg (28.0-33.3) 10/04/17 09:41 MCHC 32.2 g/dL (31.6-35.5) 10/04/17 09:41 RDW 13.8 % (11.5-14.5) 10/04/17 09:41 Plt Count 184 K/mcL (140-400) 10/04/17 09:41 MPV 9.9 fL (9.4-12.4) 10/04/17 09:41 Immature Gran % 0.3 % (0-4) 10/04/17 09:41 Seg Neutrophils % 83.4 % 10/04/17 09:41 Lymphocytes % 9.4 % 10/04/17 09:41 Monocytes % 6.1 % 10/04/17 09:41 Eosinophils % 0.6 % 10/04/17 09:41 Basophils % 0.2 % 10/04/17 09:41 Neutrophils # 8.5 K/mcL (1.6-8.9) 10/04/17 09:41 Lymphocytes # 1.0 K/mcL (0.6-4.6) 10/04/17 09:41 Monocytes # 0.6 K/mcL (0.0-1.3) 10/04/17 09:41 Eosinophils # 0.1 K/mcL (0.0-0.6) 10/04/17 09:41 Basophils # 0.0 K/mcL (0.0-0.2) 10/04/17 09:41 PT 10.8 Seconds (9.4-12.1) 10/04/17 09:41 INR 1.0 10/04/17 09:41 APTT 29.5 Seconds (26.0-36.0) 10/04/17 09:41 Sodium 141 mEq/L (136-145) 10/04/17 09:41 Potassium 4.1 mEq/L (3.5-4.5) 10/04/17 09:41 Chloride 105 mEq/L (98-109) 10/04/17 09:41 Carbon Dioxide 26 mEq/L (19-29) 10/04/17 09:41 BUN 16 mg/dL (8-26) 10/04/17 09:41 Creatinine 0.98 mg/dL (0.72-1.25) 10/04/17 09:41 Est GFR ( Amer) > 60 (> 60) 10/04/17 09:41 Est GFR (Non-Af Amer) > 60 (> 60) 10/04/17 09:41 BUN/Creatinine Ratio 16 (6-26) 10/04/17 09:41 Glucose 106 mg/dL (70-99) H 10/04/17 09:41 Calculated Osmolality 294 (280-300) 10/04/17 09:41 Lactic Acid 0.9 mmol/L (0.5-2.2) 10/04/17 09:41 Calcium 9.4 mg/dL (8.6-10.8) 10/04/17 09:41 Troponin I 0.03 ng/mL (0-0.03) 10/04/17 09:41 B-Natriuretic Peptide 79 pg/mL (0-100) 10/04/17 09:41 Result diagrams: 10/04/17 09:41 10/04/17 09:41 Lab Results 10/04/17 10/04/17 10/04/17 Range/Units 09:41 09:41 09:41 WBC 10.2 (4.3-11.1) K/mcL RBC 4.38 (4.19-5.50) M/mcL Hgb 13.0 (12.9-16.9) g/dL Hct 40.4 (37.5-50.1) % MCV 92.2 (83.0-100.0) fL MCH 29.7 (28.0-33.3) pg MCHC 32.2 (31.6-35.5) g/dL RDW 13.8 (11.5-14.5) % Plt Count 184 (140-400) K/mcL MPV 9.9 (9.4-12.4) fL Immature Gran % 0.3 (0-4) % Seg Neutrophils % 83.4 % Lymphocytes % 9.4 % Monocytes % 6.1 % Eosinophils % 0.6 % Basophils % 0.2 % Neutrophils # 8.5 (1.6-8.9) K/mcL Lymphocytes # 1.0 (0.6-4.6) K/mcL Monocytes # 0.6 (0.0-1.3) K/mcL Eosinophils # 0.1 (0.0-0.6) K/mcL Basophils # 0.0 (0.0-0.2) K/mcL PT (9.4-12.1) Seconds INR APTT (26.0-36.0) Seconds Sodium 141 (136-145) mEq/L Potassium 4.1 (3.5-4.5) mEq/L Chloride 105 (98-109) mEq/L Carbon Dioxide 26 (19-29) mEq/L BUN 16 (8-26) mg/dL Creatinine 0.98 (0.72-1.25) mg/dL Est GFR ( Amer) > 60 (> 60) Est GFR (Non-Af Amer) > 60 (> 60) BUN/Creatinine Ratio 16 (6-26) Glucose 106 H (70-99) mg/dL Calculated Osmolality 294 (280-300) Lactic Acid 0.9 (0.5-2.2) mmol/L Calcium 9.4 (8.6-10.8) mg/dL Troponin I (0-0.03) ng/mL B-Natriuretic Peptide (0-100) pg/mL Urine Color (Yellow) Urine Clarity (Clear) Urine pH (5.0-8.0) pH Units Ur Specific [place] (1.010-1.025) Urine Protein (Neg-Trace) mg/dL Urine Glucose (UA) (Normal) mg/dL Urine Ketones (Negative) mg/dL Urine Blood (Negative) Urine Nitrite (Negative) Urine Bilirubin (Negative) Urine Urobilinogen (Normal) mg/dL Ur Leukocyte Esterase (Negative) 10/04/17 10/04/17 10/04/17 Range/Units 09:41 09:41 09:41 WBC (4.3-11.1) K/mcL RBC (4.19-5.50) M/mcL Hgb (12.9-16.9) g/dL Hct (37.5-50.1) % MCV (83.0-100.0) fL MCH (28.0-33.3) pg MCHC (31.6-35.5) g/dL RDW (11.5-14.5) % Plt Count (140-400) K/mcL MPV (9.4-12.4) fL Immature Gran % (0-4) % Seg Neutrophils % % Lymphocytes % % Monocytes % % Eosinophils % % Basophils % % Neutrophils # (1.6-8.9) K/mcL Lymphocytes # (0.6-4.6) K/mcL Monocytes # (0.0-1.3) K/mcL Eosinophils # (0.0-0.6) K/mcL Basophils # (0.0-0.2) K/mcL PT 10.8 (9.4-12.1) Seconds INR 1.0 APTT 29.5 (26.0-36.0) Seconds Sodium (136-145) mEq/L Potassium (3.5-4.5) mEq/L Chloride (98-109) mEq/L Carbon Dioxide (19-29) mEq/L BUN (8-26) mg/dL Creatinine (0.72-1.25) mg/dL Est GFR ( Amer) (> 60) Est GFR (Non-Af Amer) (> 60) BUN/Creatinine Ratio (6-26) Glucose (70-99) mg/dL Calculated Osmolality (280-300) Lactic Acid (0.5-2.2) mmol/L Calcium (8.6-10.8) mg/dL Troponin I 0.03 (0-0.03) ng/mL B-Natriuretic Peptide 79 (0-100) pg/mL Urine Color (Yellow) Urine Clarity (Clear) Urine pH (5.0-8.0) pH Units Ur Specific [place] (1.010-1.025) Urine Protein (Neg-Trace) mg/dL Urine Glucose (UA) (Normal) mg/dL Urine Ketones (Negative) mg/dL Urine Blood (Negative) Urine Nitrite (Negative) Urine Bilirubin (Negative) Urine Urobilinogen (Normal) mg/dL Ur Leukocyte Esterase (Negative) 10/04/17 Range/Units 11:12 WBC (4.3-11.1) K/mcL RBC (4.19-5.50) M/mcL Hgb (12.9-16.9) g/dL Hct (37.5-50.1) % MCV (83.0-100.0) fL MCH (28.0-33.3) pg MCHC (31.6-35.5) g/dL RDW (11.5-14.5) % Plt Count (140-400) K/mcL MPV (9.4-12.4) fL Immature Gran % (0-4) % Seg Neutrophils % % Lymphocytes % % Monocytes % % Eosinophils % % Basophils % % Neutrophils # (1.6-8.9) K/mcL Lymphocytes # (0.6-4.6) K/mcL Monocytes # (0.0-1.3) K/mcL Eosinophils # (0.0-0.6) K/mcL Basophils # (0.0-0.2) K/mcL PT (9.4-12.1) Seconds INR APTT (26.0-36.0) Seconds Sodium (136-145) mEq/L Potassium (3.5-4.5) mEq/L Chloride (98-109) mEq/L Carbon Dioxide (19-29) mEq/L BUN (8-26) mg/dL Creatinine (0.72-1.25) mg/dL Est GFR ( Amer) (> 60) Est GFR (Non-Af Amer) (> 60) BUN/Creatinine Ratio (6-26) Glucose (70-99) mg/dL Calculated Osmolality (280-300) Lactic Acid (0.5-2.2) mmol/L Calcium (8.6-10.8) mg/dL Troponin I (0-0.03) ng/mL B-Natriuretic Peptide (0-100) pg/mL Urine Color Yellow (Yellow) Urine Clarity Clear (Clear) Urine pH 7.0 (5.0-8.0) pH Units Ur Specific [place] 1.008 L (1.010-1.025) Urine Protein Negative (Neg-Trace) mg/dL Urine Glucose (UA) Normal (Normal) mg/dL Urine Ketones 15 H (Negative) mg/dL Urine Blood Negative (Negative) Urine Nitrite Negative (Negative) Urine Bilirubin Negative (Negative) Urine Urobilinogen Normal (Normal) mg/dL Ur Leukocyte Esterase Negative (Negative) - Radiology Data Radiology results reviewed: Yes I reviewed the patient's radiology results. Chest X-Ray 10/04/17 08:55 IMPRESSION: Mild, bilateral mid lower lung interstitial opacities are new and may reflect interstitial edema or atypical pneumonia. Stable background COPD changes. D/ / 10/04/2017 09:48:57 Yaya Gonsales MD / prabha Interpreting Provider: Yaya Gonsales MD - EKG Data EKG attestation: Yes I reviewed and interpreted this EKG. EKG shows normal: Reports: sinus rhythm Rate: Reports: normal Rhythm: Reports: NSR Voltage: Reports: increased voltage throughout, c/w LVH When compared to previous EKG there are: no significant changes Interpretation: Reports: unchanged when compared to prior tracing (date) Attestation Statement - Attestation Attestation: I have personally performed a face to face evaluation on this patient. I have reviewed and agree with the care plan. History and Exam by me shows: Patient to the ED with cough and shortness of breath. Recently discharged from nursing facility. Recently had a hip fracture. Plan. Patient with pneumonia. We will cover for healthcare associated pneumonia. Admit to medicine.
[2017-10-04] MEDS ORDERED: Levofloxacin 750 MG/150 ML 750 MG/150 ML BAG IVPB ONE (09:45)
[2017-10-04] MEDS ORDERED: Vancomycin 1,000 MG in D5% in Water 250 ML IVPB ONE (09:45)
[2017-10-04 10:01] LABS: Basophils % 0.2 %; Eosinophils # 0.1 K/mcL (0.0-0.6); Eosinophils % 0.6 %; Hematocrit 40.4 % (37.5-50.1); Immature Granulocytes % 0.3 % (0-4); Lymphocytes % 9.4 %; Mean Corpuscular HGB Conc 32.2 g/dL (31.6-35.5); Mean Corpuscular Hemoglobin 29.7 pg (28.0-33.3); Mean Corpuscular Volume 92.2 fL (83.0-100.0); Mean Platelet Volume 9.9 fL (9.4-12.4); Monocytes # 0.6 K/mcL (0.0-1.3); Monocytes % 6.1 %; Neutrophils # 8.5 K/mcL (1.6-8.9); Platelet Count 184 K/mcL (140-400); Red Blood Count 4.38 M/mcL (4.19-5.50); Red Cell Distribution Width 13.8 % (11.5-14.5); Segmented Neutrophils % 83.4 %
[2017-10-04 10:10] LABS: Prothrombin Time 10.8 Seconds (9.4-12.1)
[2017-10-04 10:12] LABS: Activated Partial Thrombo Time 29.5 Seconds (26.0-36.0)
[2017-10-04 10:15] LABS: BUN/Creatinine Ratio 16 (6-26); Blood Urea Nitrogen 16 mg/dL (8-26); Calcium 9.4 mg/dL (8.6-10.8); Carbon Dioxide 26 mEq/L (19-29); Chloride 105 mEq/L (98-109); Glucose 106 mg/dL (70-99); Osmolality,Calculated 294 (280-300); Potassium 4.1 mEq/L (3.5-4.5); Sodium 141 mEq/L (136-145); eGFR For African Americans > 60 (> 60); eGFR For Non-African Americans > 60 (> 60)
[2017-10-04] MEDS ORDERED: Meropenem 1,000 MG in Water for inj. (sterile) 10 ML IVP STA (10:19)
[2017-10-04 11:46] LABS: Bilirubin,Urine Negative (Negative); Blood,Urine Negative (Negative); Clarity,Urine Clear (Clear); Color,Urine Yellow (Yellow); Glucose,Urine (UA) Normal (Normal); Ketones,Urine 15 mg/dL (Negative); Leukocyte Esterase,Urine Negative (Negative); Nitrite,Urine Negative (Negative); Protein,Urine Negative (Neg-Trace); Specific Gravity,Urine 1.008 (1.010-1.025); Urobilinogen,Urine Normal (Normal)
[2017-10-04] MEDS ORDERED: Naloxone 0.4 MG/ML INJ IVP PRN (12:55)
[2017-10-04] MEDS ORDERED: Acetaminophen 325 MG TABLET PO PRN (12:55)
[2017-10-04] MEDS ORDERED: Ondansetron ODT 4 MG TAB.RAPDIS SL PRN (12:55)
[2017-10-04] MEDS ORDERED: Albuterol 2.5 MG/3 ML NEBULIZER IH PRN (13:00)
--- NOTE | 2017-10-04 14:05 | Internal Med History&Physical ---
Date of Encounter: 10/04/17 Time of Encounter: 13:59 Assessment and Plan (1) HAP (hospital-acquired pneumonia) Current visit: Yes Status: Acute 1 patient has been experiencing subjective fevers cough with sputum production chest x-ray demonstrates bilateral lower lobe [place]. Blood cultures have been obtained we will obtain sputum culture 2 patient has had a recent admission to rehabilitation facility in the past month. We will treat for healthcare acquired pneumonia. Continue with vancomycin and meropenem, Levaquin 3 continue with breathing treatments 4 continue with oxygen titrated to maintain SPO2 greater than 92% (2) COPD (chronic obstructive pulmonary disease) Current visit: No Status: Chronic Continue with bronchodilators, oxygen as needed maintain SPO2 greater than 92% Qualifiers: COPD type: unspecified COPD Qualified Code(s): J44.9 - Chronic obstructive pulmonary disease, unspecified (3) Status post total hip replacement, right Current visit: No Status: Acute Continue with PT and OT, Falls precautions (4) DVT prophylaxis Current visit: No Status: Acute lovenox subcutaneous Internal Medicine - H&P: HPI Chief complaint: sob Admitted From: Emergency Dept Plans for Post Hospital Care: Home History of present illness: Mr. Buckner is a 81 year old male past medical history of hypertension former smoker COPD dementia. Information obtained from caregiver as well as augustin who is power of comprehensive ophthalmologist at bedside due to patient's dementia. According to caregiver the patient has been feeling ill for about 2-3 days. Last night he did experience subjective fevers and productive cough which the caregiver states was green sputum, which is new. He has been experiencing some shortness of breath on exertion. He denies any chest pain abdominal pain nausea vomiting or diarrhea. He does have a history of COPD however he is not oxygen dependent. He does use inhalers however this is not very frequent. In July he did sustain a fall and fractured his hip which required admission to a rehabilitation facility for approximately 5 weeks. He has been home for about 2 weeks and has been doing well up until the past couple days. He presented to the ER with the above complaints. In the ER chest x-ray did show bilateral lower lobe appears these. Blood cultures were obtained and he was initiated on empiric antibiotic treatment for hospital-acquired pneumonia. He has been admitted for further workup and evaluation. Presently patient does not appear to be in respiratory distress. Denies any chest pain and he is hemodynamically stable this time. I did review this case with Dr. Dixon who agrees with plan. Past Med Surg Social Fam HX - Past Medical History Medical history: arthritis, COPD, coronary artery disease, dementia Psychiatric history: no psych history - Past Surgical History Surgical History: hip replacement - Social History Smoking Status: Former smoker Smokeless Tobacco Status: No Alcohol use: none Drug use: none - Family History Father Living Status: Age at : 75 Cause of : stroke affects Hx Family Cardiac Disorders: Yes (Stroke) Hx Family Endocrine Disorder: Yes (diabetes) Mother Living Status: Age at : 70 Cause of : cancer Hx Family Cancer: Yes Internal Medicine - H&P: Meds Celecoxib [Celebrex] 200 mg PO DAILY 08/12/17 [History] Cholecalciferol (D-3) [Vitamin D] 5,000 unit PO DAILY 08/12/17 [History] Fluticasone/Vilanterol [Breo Ellipta 200-25 Mcg INH] 1 puff IH BID 08/12/17 [ History] Ipratropium/Albuterol Sulfate [Combivent Respimat Inhal [place]] 2 puff IH Q6H PRN 08/12/17 [History] Pantoprazole Sodium 40 mg PO DAILY 08/12/17 [History] Pregabalin [Lyrica] 75 mg PO TID 08/12/17 [History] Simvastatin [Zocor] 40 mg PO HS 08/12/17 [History] Tamsulosin [Flomax] 0.4 mg PO DAILY 08/12/17 [History] Aspirin Enteric Coated [Aspirin EC] 325 mg PO DAILY #21 tablet. 08/13/17 [Rx] Memantine [Namenda] 5 mg PO HS 10/04/17 [History] Oxycodone HCl/Acetaminophen [Percocet 10-325 mg Tablet] 1 tab PO Q8H 10/04/17 [ History] 3 Allergy/AdvReac Type Severity Reaction Status Date / Time Penicillins [PCN] Allergy Mild See Verified 10/04/17 08:41 Comments Sulfa (Sulfonamide Allergy See Verified 10/04/17 08:41 Antibiotics) Comments haloperidol [From Haldol] AdvReac Agitated Verified 10/04/17 08:41 All Systems PM: A 10-system review of systems was performed and is negative for pertinent findings except as documented above in the HPI. - Constitutional Constitutional: fever(s), no chills, no night sweats - EENT Eyes: no change in vision, no discharge, no pain, no photophobia Nose, mouth and throat: no dysphagia, no nasal discharge, no neck pain, no sore throat - Cardiovascular Cardiovascular ROS IM: no chest pain, no diaphoresis, no dyspnea, no lightheadedness, no palpitations, no syncope - Respiratory Respiratory: cough, dyspnea on exertion, change in phlegm color, no dyspnea, no wheezing, no excessive phlegm production - Gastrointestinal Gastrointestinal: no abdominal pain, no diarrhea, no hematemesis, no hematochezia, no melena, no nausea, no vomiting - Musculoskeletal Musculoskeletal ROS IM: no numbness, no tingling - Integumentary Integumentary IM: no rash, no unusual bruising - Neurological Neurological ROS: as per HPI - Hematologic/Lymphatic Hematologic/Lymphatic: no easy bruising - Constitutional Vitals: Temp Pulse Resp BP Pulse Ox 97.7 F 81 18 155/84 93 10/04/17 13:05 10/04/17 13:05 10/04/17 13:05 10/04/17 13:05 10/04/17 13:05 General appearance: Present: A&O X 2 - Head Head exam: Present: atraumatic, normocephalic - Eye Eye exam: Present: PERRL, conjuntiva pink, sclera anicteric Pupils: Present: PERRL - Neck Neck exam general surgery: Present: supple, trachea midline. Absent: lymphadenopathy - Respiratory Respiratory exam: Present: rales. Absent: accessory muscle use, rhonchi, wheezes - Cardiovascular Cardiovascular exam: Present: RRR, +S1, +S2. Absent: diastolic murmur, gallop, rubs, systolic murmur - GI/Abdominal GI/Abdominal exam: Present: normal bowel sounds, soft, no peritoneal signs. Absent: distended, tenderness - Extremities Exam Extremities exam: Present: warm, radial pulses palpable and symmetrical. Absent : calf tenderness, cyanotic, pedal edema - Neurological Exam Neurological exam: Present: CN II-XII intact, no focal deficits. Absent: pronater drift, facial droop, speech deficit - Skin Skin exam: Present: dry, intact Internal Med - H&P Results - Labs CBC & Chem 7: 10/04/17 09:41 10/04/17 09:41 Labs: Urine 10/04/17 Range/Units 11:12 Urine Color Yellow (Yellow) Urine Clarity Clear (Clear) Urine pH 7.0 (5.0-8.0) pH Units Ur Specific [place] 1.008 L (1.010-1.025) Urine Protein Negative (Neg-Trace) mg/dL Urine Glucose (UA) Normal (Normal) mg/dL - Diagnostic Studies Other Images Additional comments: Chest X-Ray 10/04/17 08:55 IMPRESSION: Mild, bilateral mid lower lung interstitial opacities are new and may reflect interstitial edema or atypical pneumonia. Stable background COPD changes. D/ / 10/04/2017 09:48:57 Yaya Gonasles MD / prabha Interpreting Provider: Yaya Gonsales MD
[2017-10-04] MEDS: *HR* OxyCODONE/APAP 10/325 TABLET PO SCH ×2 (15:56→21:09)
[2017-10-04] MEDS: Pregabalin 75 MG CAPSULE PO SCH ×2 (15:57→21:09)
[2017-10-04] MEDS: Ipratropium/Albuterol Neb 3 ML IH SCH ×2 (16:21→22:22)
--- NOTE | 2017-10-04 18:30 | Electrocardiograph Report ---
[place] [address] Test Date: 2017-10-04 Pat Name: Seth Buckner Department: 103 Room: 3A11 Gender: M Obstetrics Technician: : 1935 Requested By: Daily Coleman Order Number: [id number] Reading MD: Silke Hernandez Measurements Intervals [place] Rate: 84 P: 41 AR: 145 QRS: -34 QRSD: 102 T: 51 QT: 388 QTc: 429 Interpretive Statements SINUS RHYTHM MARKED LEFT AXIS DEVIATION [QRS AXIS < -30] MODERATE VOLTAGE CRITERIA FOR LVH, CONSIDER NORMAL VARIANT Electronically Signed On 10-04-2017 18:28:04 EST by Silke Hernandez
[2017-10-04] MEDS: (Fluticasone/Vilanterol [Breo Ellipta 200-25 Mcg Inh]) IH SCH (22:24)
[2017-10-05] MEDS: Meropenem 1,000 MG in Water for inj. (sterile) 10 ML IVP SCH ×2 (00:47→08:00)
[2017-10-05] MEDS: Ipratropium/Albuterol Neb 3 ML IH SCH ×2 (04:18→10:47)
[2017-10-05] MEDS: *HR* OxyCODONE/APAP 10/325 TABLET PO SCH ×3 (05:51→22:27)
[2017-10-05] MEDS: *HR* Enoxaparin 40 MG/0.4 ML SYRINGE SQ SCH (05:52)
[2017-10-05 05:59] LABS: Basophils % 0.4 %; Eosinophils % 0.4 %; Hematocrit 38.3 % (37.5-50.1); Hemoglobin 12.3 g/dL (12.9-16.9); Immature Granulocytes % 0.5 % (0-4); Lymphocytes # 1.5 K/mcL (0.6-4.6); Lymphocytes % 18.9 %; Mean Corpuscular HGB Conc 32.1 g/dL (31.6-35.5); Mean Corpuscular Hemoglobin 29.7 pg (28.0-33.3); Mean Corpuscular Volume 92.5 fL (83.0-100.0); Monocytes # 0.6 K/mcL (0.0-1.3); Monocytes % 7.6 %; Neutrophils # 5.7 K/mcL (1.6-8.9); Platelet Count 178 K/mcL (140-400); Red Blood Count 4.14 M/mcL (4.19-5.50); Red Cell Distribution Width 13.7 % (11.5-14.5); Segmented Neutrophils % 72.2 %
[2017-10-05 06:18] LABS: BUN/Creatinine Ratio 16 (6-26); Blood Urea Nitrogen 16 mg/dL (8-26); Calcium 8.7 mg/dL (8.6-10.8); Carbon Dioxide 26 mEq/L (19-29); Chloride 108 mEq/L (98-109); Glucose 125 mg/dL (70-99); Magnesium 1.8 mg/dL (1.6-2.6); Osmolality,Calculated 299 (280-300); Potassium 3.3 mEq/L (3.5-4.5); Sodium 143 mEq/L (136-145); eGFR For African Americans > 60 (> 60); eGFR For Non-African Americans > 60 (> 60)
[2017-10-05] MEDS ORDERED: Potassium Chloride Elixir 20 MEQ/15 ML UDC PO ONE (07:41)
[2017-10-05] MEDS: Cholecalciferol (D-3) 1,000 UNIT TABLET PO SCH (07:59)
[2017-10-05] MEDS: Pregabalin 75 MG CAPSULE PO SCH ×3 (08:00→22:26)
[2017-10-05] MEDS: Aspirin Enteric Coated 325 MG Tablet PO SCH (08:00)
[2017-10-05] MEDS: Celecoxib 200 MG CAPSULE PO SCH (08:00)
[2017-10-05] MEDS ORDERED: Vancomycin 1,000 MG in D5% in Water 250 ML IVPB SCH ×2 (10:00→16:00)
[2017-10-05] MEDS: (Fluticasone/Vilanterol [Breo Ellipta 200-25 Mcg Inh]) IH SCH (10:47)
[2017-10-05] MEDS: Levalbuterol 1 PUFF INHALER IH SCH ×2 (15:44→20:31)
[2017-10-05] MEDS ORDERED: Aztreonam 2,000 MG in D5% in Water (Mini-Bag+) 100 ML IVPB SCH (16:00)
[2017-10-05] MEDS ORDERED: Aztreonam 2,000 MG in Water for inj. (sterile) 20 ML IVP SCH (16:00)
[2017-10-05] MEDS ORDERED: Cefepime HCl 1,000 MG in D5% in Water (Mini-Bag+) 100 ML IVPB SCH (18:00)
[2017-10-05] MEDS: Cefepime HCl 1,000 MG in Water for inj. (sterile) 10 ML IVP SCH (18:41)
[2017-10-05] MEDS: Budesonide/Formoterol 80/4.5 MDI IH SCH (20:31)
--- NOTE | 2017-10-05 21:50 | Internal Med Progress Note ---
Date of Encounter: 10/05/17 Time of Encounter: 11:38 - Assessment and plan (1) HAP (hospital-acquired pneumonia) Current Visit: Yes Status: Acute Assessment and plan: At this point, patient was able to remember that his allergies to penicillin is rash, and not anaphylaxis. We can switch to more specific coverage of HAP with Cefepime, and discontinue meropenem. Continue Vancomycin, levaquin. Follow up sputum/blood cultures, flu, urine antigens. (2) COPD (chronic obstructive pulmonary disease) Current Visit: No Status: Chronic Assessment and plan: He is getting tachycardic and tremor with B1 effects of albuterol. Will switch to Xopenex in attempt to reduce tachycardia side effects. Add Symbicort as patient takes Brio at home. Qualifiers: COPD type: unspecified COPD Qualified Code(s): J44.9 - Chronic obstructive pulmonary disease, unspecified (3) Hyperlipidemia Current Visit: No Status: Chronic Assessment and plan: Continue Zocor Qualifiers: Hyperlipidemia type: mixed hyperlipidemia Qualified Code(s): E78.2 - Mixed hyperlipidemia (4) Status post total hip replacement, right Current Visit: No Status: Acute Assessment and plan: PT, pain medication as needed. - Subjective Interval history: Patient feels better in regards to breathing after treatment here but also feels jittery after Duo Nebs. He denies any fevers/chills, n/v. - Constitutional Vitals: Temp Pulse Resp BP Pulse Ox 98.1 F 75 14 133/52 98 10/05/17 20:19 10/05/17 20:19 10/05/17 20:35 10/05/17 20:19 10/05/17 20:35 General appearance: Present: A&O X 2 Exam: Head Head exam: Present: atraumatic, normocephalic - Eye Eye exam: Present: PERRL, conjuntiva pink, sclera anicteric Pupils: Present: PERRL - Neck Neck exam general surgery: Present: supple, trachea midline. Absent: lymphadenopathy - Respiratory Respiratory exam: Present: rales. Absent: accessory muscle use, rhonchi, wheezes - Cardiovascular Cardiovascular exam: Present: RRR, +S1, +S2. Absent: diastolic murmur, gallop, rubs, systolic murmur - GI/Abdominal GI/Abdominal exam: Present: normal bowel sounds, soft, no peritoneal signs. Absent: distended, tenderness - Extremities Exam Extremities exam: Present: warm, radial pulses palpable and symmetrical. Absent : calf tenderness, cyanotic, pedal edema - Neurological Exam Neurological exam: Present: CN II-XII intact, no focal deficits. Absent: pronater drift, facial droop, speech deficit - Skin Skin exam: Present: dry, intact Internal Medicine: Result - Labs CBC & Chem 7: 10/05/17 05:21 10/05/17 05:21 Labs: Short CBC 10/05/17 Range/Units 05:21 WBC 7.9 (4.3-11.1) K/mcL Hgb 12.3 L (12.9-16.9) g/dL Hct 38.3 (37.5-50.1) % Plt Count 178 (140-400) K/mcL Neutrophils # 5.7 (1.6-8.9) K/mcL BMP 10/05/17 05:21 Sodium 143 Potassium 3.3 L Chloride 108 Carbon Dioxide 26 BUN 16 Creatinine 1.00 Glucose 125 H Calcium 8.7 - ABG Interpretation ABG results: PT/INR, D-dimer PT 10.8 Seconds (9.4-12.1) 10/04/17 09:41 Consult Discharge Plan - Plan Referrals: Aj Snyder MD [Primary Care Provider] - 10/15/17 1:30 pm
[2017-10-06] MEDS: Levalbuterol 1 PUFF INHALER IH SCH ×7 (00:04→23:10)
[2017-10-06] MEDS: Cefepime HCl 1,000 MG in Water for inj. (sterile) 10 ML IVP SCH ×2 (05:54→17:54)
[2017-10-06] MEDS: *HR* OxyCODONE/APAP 10/325 TABLET PO SCH ×3 (05:54→21:35)
[2017-10-06] MEDS: *HR* Enoxaparin 40 MG/0.4 ML SYRINGE SQ SCH (05:55)
[2017-10-06 08:42] LABS: Basophils % 0.4 %; Eosinophils # 0.2 K/mcL (0.0-0.6); Eosinophils % 4.2 %; Hematocrit 38.4 % (37.5-50.1); Immature Granulocytes % 0.7 % (0-4); Lymphocytes # 1.2 K/mcL (0.6-4.6); Lymphocytes % 21.6 %; Mean Corpuscular HGB Conc 31.3 g/dL (31.6-35.5); Mean Corpuscular Hemoglobin 29.1 pg (28.0-33.3); Mean Corpuscular Volume 93.2 fL (83.0-100.0); Mean Platelet Volume 9.6 fL (9.4-12.4); Monocytes # 0.5 K/mcL (0.0-1.3); Monocytes % 8.7 %; Neutrophils # 3.6 K/mcL (1.6-8.9); Platelet Count 201 K/mcL (140-400); Red Blood Count 4.12 M/mcL (4.19-5.50); Segmented Neutrophils % 64.4 %
[2017-10-06 08:59] LABS: BUN/Creatinine Ratio 17 (6-26); Blood Urea Nitrogen 16 mg/dL (8-26); Calcium 8.6 mg/dL (8.6-10.8); Carbon Dioxide 24 mEq/L (19-29); Chloride 110 mEq/L (98-109); Glucose 107 mg/dL (70-99); Osmolality,Calculated 296 (280-300); Potassium 4.3 mEq/L (3.5-4.5); Sodium 142 mEq/L (136-145); eGFR For African Americans > 60 (> 60); eGFR For Non-African Americans > 60 (> 60)
[2017-10-06] MEDS ORDERED: Levofloxacin 750 MG/150 ML 750 MG/150 ML BAG IVPB SCH (09:00)
[2017-10-06] MEDS: Pregabalin 75 MG CAPSULE PO SCH ×3 (10:07→21:35)
[2017-10-06] MEDS: Cholecalciferol (D-3) 1,000 UNIT TABLET PO SCH (10:07)
[2017-10-06] MEDS: Celecoxib 200 MG CAPSULE PO SCH (10:07)
[2017-10-06] MEDS: Aspirin Enteric Coated 325 MG Tablet PO SCH (10:07)
[2017-10-06] MEDS: Budesonide/Formoterol 80/4.5 MDI IH SCH ×2 (10:31→20:21)
[2017-10-06] MEDS: Vancomycin 1,500 MG in D5% in Water 250 ML IVPB SCH (12:39)
[2017-10-06] MEDS ORDERED: Aminoglycoside Consult 1 EACH MC ONE (15:17)
--- NOTE | 2017-10-06 21:04 | Internal Med Progress Note ---
Date of Encounter: 10/06/17 Time of Encounter: 09:01 - Assessment and plan (1) HAP (hospital-acquired pneumonia) Current Visit: Yes Status: Acute Assessment and plan: Sputum culture: Normal respiratory audie. Strep pneumo and legionella antigens : negative. No leukocytosis, no fevers, clinically improving with current therapy. 09/05 had patient walk and measure O2, he desaturated to 80% shortly after ambulating. Continue Cefepime, Vancomycin, levaquin. Follow-up procalcitonin level. Will try O2 test tomorrow, patient may need O2 upon discharge. (2) COPD (chronic obstructive pulmonary disease) Current Visit: No Status: Chronic Assessment and plan: He is currently not in exacerbation. No steroids given. Add Symbicort as patient takes Brio at home. Qualifiers: COPD type: unspecified COPD Qualified Code(s): J44.9 - Chronic obstructive pulmonary disease, unspecified (3) Hyperlipidemia Current Visit: No Status: Chronic Assessment and plan: Continue Zocor Qualifiers: Hyperlipidemia type: mixed hyperlipidemia Qualified Code(s): E78.2 - Mixed hyperlipidemia (4) Status post total hip replacement, right Current Visit: No Status: Acute Assessment and plan: PT, pain medication as needed. - Subjective Interval history: No acute events. Less tremors of hands after switching albuterol to Xopenex. Feels good and would like to go home. He denies any dyspnea, chest pain, fevers /chills, n/v. - Constitutional Vitals: Temp Pulse Resp BP Pulse Ox 97.8 F 85 16 145/73 93 10/06/17 20:25 10/06/17 20:25 10/06/17 20:25 10/06/17 20:25 10/06/17 20:25 General appearance: Present: A&O X 2 Exam: CVS: tachycardic with regular rhythm, no m/r/g Lungs: CTAB, improved since yesterday. No w/r/r Abd: Soft, NT/ND Ext: no edema Internal Medicine: Result - Labs CBC & Chem 7: 10/06/17 08:34 10/06/17 08:34 Labs: Short CBC 10/06/17 Range/Units 08:34 WBC 5.7 (4.3-11.1) K/mcL Hgb 12.0 L (12.9-16.9) g/dL Hct 38.4 (37.5-50.1) % Plt Count 201 (140-400) K/mcL Neutrophils # 3.6 (1.6-8.9) K/mcL BMP 10/06/17 08:34 Sodium 142 Potassium 4.3 D Chloride 110 H Carbon Dioxide 24 BUN 16 Creatinine 0.94 Glucose 107 H Calcium 8.6 - ABG Interpretation ABG results: PT/INR, D-dimer PT 10.8 Seconds (9.4-12.1) 10/04/17 09:41 Consult Discharge Plan - Plan Referrals: Aj Snyder MD [Primary Care Provider] - 10/15/17 1:30 pm
[2017-10-07] MEDS: Levalbuterol 1 PUFF INHALER IH SCH ×3 (03:23→11:27)
[2017-10-07 05:02] LABS: Basophils % 0.6 %; Eosinophils # 0.4 K/mcL (0.0-0.6); Eosinophils % 6.5 %; Hemoglobin 11.8 g/dL (12.9-16.9); Immature Granulocytes % 0.9 % (0-4); Lymphocytes # 1.5 K/mcL (0.6-4.6); Lymphocytes % 26.8 %; Mean Corpuscular HGB Conc 31.1 g/dL (31.6-35.5); Mean Corpuscular Hemoglobin 28.7 pg (28.0-33.3); Mean Corpuscular Volume 92.5 fL (83.0-100.0); Mean Platelet Volume 9.8 fL (9.4-12.4); Monocytes # 0.5 K/mcL (0.0-1.3); Monocytes % 9.1 %; Platelet Count 215 K/mcL (140-400); Red Blood Count 4.11 M/mcL (4.19-5.50); Red Cell Distribution Width 13.7 % (11.5-14.5); Segmented Neutrophils % 56.1 %
[2017-10-07 05:16] LABS: BUN/Creatinine Ratio 15 (6-26); Blood Urea Nitrogen 15 mg/dL (8-26); Calcium 8.8 mg/dL (8.6-10.8); Carbon Dioxide 25 mEq/L (19-29); Chloride 107 mEq/L (98-109); Glucose 102 mg/dL (70-99); Osmolality,Calculated 295 (280-300); Potassium 4.1 mEq/L (3.5-4.5); Sodium 142 mEq/L (136-145); eGFR For African Americans > 60 (> 60); eGFR For Non-African Americans > 60 (> 60)
[2017-10-07] MEDS: *HR* OxyCODONE/APAP 10/325 TABLET PO SCH ×2 (05:17→12:09)
[2017-10-07] MEDS: *HR* Enoxaparin 40 MG/0.4 ML SYRINGE SQ SCH (05:17)
[2017-10-07] MEDS: Cefepime HCl 1,000 MG in Water for inj. (sterile) 10 ML IVP SCH (05:18)
[2017-10-07] MEDS: Budesonide/Formoterol 80/4.5 MDI IH SCH (08:13)
[2017-10-07] MEDS: Cholecalciferol (D-3) 1,000 UNIT TABLET PO SCH (09:34)
[2017-10-07] MEDS: Aspirin Enteric Coated 325 MG Tablet PO SCH (09:34)
[2017-10-07] MEDS: Pregabalin 75 MG CAPSULE PO SCH (09:34)
[2017-10-07] MEDS: Celecoxib 200 MG CAPSULE PO SCH (09:35)
[2017-10-07] MEDS: Vancomycin 1,500 MG in D5% in Water 250 ML IVPB SCH (12:05)
[2017-10-07 12:10] VITALS: BP 152/76
--- NOTE | 2017-10-07 14:06 | Discharge Summary ---
Date of Encounter: 10/07/17 Time of Encounter: 14:05 - Discharge Diagnosis (1) HAP (hospital-acquired pneumonia) Priority: Primary Status: Acute (2) COPD (chronic obstructive pulmonary disease) Priority: Secondary Status: Chronic Qualifiers: COPD type: unspecified COPD Qualified Code(s): J44.9 - Chronic obstructive pulmonary disease, unspecified (3) Hyperlipidemia Priority: Secondary Status: Chronic Qualifiers: Hyperlipidemia type: mixed hyperlipidemia Qualified Code(s): E78.2 - Mixed hyperlipidemia (4) Status post total hip replacement, right Priority: Secondary Status: Acute - Discharge Medications Home Medications: Celecoxib [Celebrex] 200 mg PO DAILY 08/12/17 [History] Cholecalciferol (D-3) [Vitamin D] 5,000 unit PO DAILY 08/12/17 [History] Fluticasone/Vilanterol [Breo Ellipta 200-25 Mcg INH] 1 puff IH BID 08/12/17 [ History] Ipratropium/Albuterol Sulfate [Combivent Respimat Inhal [place]] 2 puff IH Q6H PRN 08/12/17 [History] Pantoprazole Sodium 40 mg PO DAILY 08/12/17 [History] Pregabalin [Lyrica] 75 mg PO TID 08/12/17 [History] Simvastatin [Zocor] 40 mg PO HS 08/12/17 [History] Tamsulosin [Flomax] 0.4 mg PO DAILY 08/12/17 [History] Aspirin Enteric Coated [Aspirin EC] 325 mg PO DAILY #21 tablet. 08/13/17 [Rx] Memantine [Namenda] 5 mg PO HS 10/04/17 [History] Oxycodone HCl/Acetaminophen [Percocet 10-325 mg Tablet] 1 tab PO Q8H 10/04/17 [ History] levoFLOXacin [Levaquin] 750 mg PO DAILY #7 tablet 10/07/17 [Rx] Allergies/Adverse Reactions: 3 Allergy/AdvReac Type Severity Reaction Status Date / Time Penicillins [PCN] Allergy Mild See Verified 10/04/17 08:41 Comments Sulfa (Sulfonamide Allergy See Verified 10/04/17 08:41 Antibiotics) Comments haloperidol [From Haldol] AdvReac Agitated Verified 10/04/17 08:41 Date of admission: 10/04/17 12:55 Primary care physician: Aj L Claudio Consults: 10/04/17 14:17 Consult to Physical Therapy [CONS] Routine Comment: Evaluate, develop and implement POC Reason for Consult: s/p R hip fx - approx 6 weeks 10/04/17 14:18 Consult to Occupational Therapy [CONS] Routine Comment: Evaluate, develop and implement POC Reason for Consult: s/p hip fx - 5 weeks ago Discharging clinician: Carolin Rodarte - Patient Status Disposition: Home Health Service Condition: Undetermined Functional capacity at discharge: uses cane/walker Overall status at discharge: patient is progressing back to baseline - Discharge Instructions Follow Up With: Aj Snyder MD [Primary Care Provider] - 10/15/17 1:30 pm - Diet and Activity Activity: ambulate only with your walker, increase activity as tolerated Diet: advance to your usual diet Hospital course: Mr. Buckner is a 81 year old male with history of hypertension and COPD and dementia presented for being ill for the past 2-3 days. One day prior to admission patient had subjective fever, productive cough which had green sputum , and dyspnea on exertion. He denied any chest pain or abdominal pain, denied nausea or vomiting, denied diarrhea. The patient is not oxygen dependent. He only requires inhalers on occasion. In July, 2 months ago the patient did sustain a fall and fracture of his hip or trocar admission to a rehabilitation facility for approximately 5 weeks. He has been home for about 2 weeks and was doing well until the past couple of days. A chest x-ray in the ED showed bilateral lower lobe opacities. All cultures were obtained and he was initiated on empiric antibiotic therapy to cover for hospital-acquired pneumonia. He was not in acute distress when admitted to the hospital. He was admitted for further workup and monitoring. He was given breathing treatments as needed, initially albuterol but he was tachycardic and jittery from it. He was switched to Xopenex and tolerated it better. He was not hypoxic on room air and did not require supplemental O2. He was started on cefepime and vancomycin and Levaquin. Sputum cultures came back only with normal respiratory audie. Flu was negative. Strep pneumo and Legionella antigens were negative. Patient did not have any leukocytosis nor did he have any fever while he was admitted. 2 days after treatment patient would ambulate down the [place] and had brief episode of desaturation but rested well on room air. He was monitored again and was able to ambulate without a hypoxic episodes. And hemodynamically stable and without fever or leukocytosis. He was discharged home in stable condition, to finish 7 additional days of Levaquin 750 mg daily. - Time Spent with Patient Total time spent providing and/or coordinating discharge services: - Constitutional Vitals: Temp Pulse Resp BP Pulse Ox 97.6 F 73 16 152/76 92 10/07/17 12:07 10/07/17 12:07 10/07/17 12:07 10/07/17 12:07 10/07/17 12:07 General appearance: Present: A&O X 2 Exam: CVS: tachycardic with regular rhythm, no m/r/g Lungs: CTAB, improved since yesterday. No w/r/r Abd: Soft, NT/ND Ext: no edema
[2017-10-10 15:18] LABS: Mycoplasma pneumoniae IgG 0.06 U/L (<=0.09)
== END 2017-10-07 15:18 | disposition home health service (06) | DRG 194 ==
LOC: EMEROO 08:33 → 3ANU 08:33
PROVIDERS: ADMIT Internal Medicine; ATTEND Student in an Organized Health Care Education/Training Program

== ENCOUNTER 2017-11-27 10:23 | Inpatient (IN) ==
--- NOTE | 2017-11-27 10:44 | Emergency Department Note ---
Disposition Time of Disposition: 11:05 <Pavel Oropeza R - Last Filed: 11/27/17 11:04> <Troy Jacinto - Last Filed: 11/27/17 12:14> Clinical Impression: Shortness of breath Altered mental status, unspecified Qualifiers: Altered mental status type: unspecified Qualified Code(s): R41.82 - Altered mental status, unspecified Pneumonia Qualifiers: Pneumonia type: due to unspecified organism Laterality: right Lung location: lower lobe of lung Qualified Code(s): J18.1 - Lobar pneumonia, unspecified organism Disposition: Admitted As Inpatient Condition: Fair Referrals: Aj Snyder MD [Primary Care Provider] - Forms: ED Satisfaction Letter URI/Sore Throat HPI - General Source: patient, family Limitations: no limitations Nursing Notes Reviewed: Yes Vital Signs Reviewed: Yes - History of Present Illness Pt Subjective Complaint: cough, other (Altered mental status) Onset (ago): day(s) (2 days) Duration: gradually worsening Severity scale (1-10): 0 Improves with: cough suppressant Worsens with: nothing Associated symptoms: Denies: fever, chills, myalgias, rhinorrhea, sore throat, chest pain, shortness of breath, abdominal pain, nausea, vomiting, diarrhea, dysuria Treatments prior to arrival: none <Pavel Oropeza R - Last Filed: 11/27/17 11:04> <Troy Jacinto - Last Filed: 11/27/17 12:14> - General Chief Complaint: ED Upper Respiratory Infection Stated Complaint: Cold possible pneumonia Time Seen by Provider: 11/27/17 10:32 - History of Present Illness HPI Narrative: Nontoxic-appearing 82-year-old male with a history of baseline dementia is brought to the emergency department for evaluation of increasing shortness of breath and a productive cough. Symptoms began 2 days ago and gradually worsened. Patient states the cough is productive of a thick white sputum. Family members were in the room also states that he has been more confused for the past 2 days as well. He denies any chest pain, palpitations, hemoptysis, abdominal pain, nausea, vomiting, diarrhea, fever, chills, or arthralgias/ myalgias. He was recently discharged from this hospital on 10/07/17 after being admitted and treated for hospital-acquired pneumonia at that time. (Pavel Oropeza) - Related Data Home Medications Medication Instructions Recorded Confirmed Celecoxib [Celebrex] 200 mg PO DAILY 08/12/17 10/04/17 Cholecalciferol (D-3) [Vitamin D] 5,000 unit PO DAILY 08/12/17 10/04/17 Fluticasone/Vilanterol [Breo 1 puff IH BID 08/12/17 10/04/17 Ellipta 200-25 Mcg INH] Ipratropium/Albuterol Sulfate 2 puff IH Q6H PRN 08/12/17 10/04/17 [Combivent Respimat Inhal Comfrey] Pantoprazole Sodium 40 mg PO DAILY 08/12/17 10/04/17 Pregabalin [Lyrica] 75 mg PO TID 08/12/17 10/04/17 Simvastatin [Zocor] 40 mg PO HS 08/12/17 10/04/17 Tamsulosin [Flomax] 0.4 mg PO DAILY 08/12/17 10/04/17 Memantine [Namenda] 5 mg PO HS 10/04/17 10/04/17 Oxycodone HCl/Acetaminophen 1 tab PO Q8H 10/04/17 10/04/17 [Percocet 10-325 mg Tablet] Previous Rx's Medication Instructions Recorded Aspirin Enteric Coated [Aspirin EC] 325 mg PO DAILY #21 tablet. 08/13/17 levoFLOXacin [Levaquin] 750 mg PO DAILY #7 tablet 10/07/17 Allergies Allergy/AdvReac Type Severity Reaction Status Date / Time Penicillins [PCN] Allergy Mild See Verified 10/04/17 08:41 Comments Sulfa (Sulfonamide Allergy See Verified 10/04/17 08:41 Antibiotics) Comments haloperidol [From Haldol] AdvReac Agitated Verified 10/04/17 08:41 All systems ED: reviewed and negative except as stated. Constitutional: Denies: fever, chills, weakness, weight change Eyes: Denies: eye pain, eye discharge, vision change ENT ED: Denies: ear pain, throat pain, dental pain, hearing loss, epistaxis, congestion, dysphagia Cardiovascular: Denies: chest pain, palpitations, dyspnea on exertion, edema, syncope Respiratory: Reports: as per HPI, cough, dyspnea, sputum production. Denies: wheezes, hemoptysis, stridor Gastrointestinal: Denies: abdominal pain, nausea, vomiting, diarrhea, constipation, hematemesis, melena, hematochezia Genitourinary: Denies: urgency, dysuria, frequency, hematuria Musculoskeletal: Denies: back pain, neck pain, arthralgia, myalgia Integumentary: Denies: rash, abrasion, lesions Neurological: Reports: as per HPI, other (Altered mental status per family members). Denies: headache, weakness, numbness, paresthesias, confusion, abnormal gait, vertigo Psychiatric: Denies: anxiety, depression, suicidal thoughts, homicidal thoughts , auditory hallucinations, visual hallucinations Endocrine: Denies: fatigue Hematological/Lymphatic: Denies: easy bleeding, easy bruising Allergic/Immunologic: Denies: facial swelling, urticaria <Pavel Oropeza R - Last Filed: 11/27/17 11:04> URI PMH - Past Medical History Medical history: Reports: arthritis, COPD, coronary artery disease, dementia Surgical history: Reports: hip replacement Psychiatric history: Reports: no psych history - Social History Smoking Status: Former smoker Alcohol use: Reports: none Drug use: Reports: none <Pavel Oropeza R - Last Filed: 11/27/17 11:04> Physical Exam - General Limitations: no limitations General appearance: alert, in no apparent distress - Head Head exam: atraumatic, normocephalic, normal inspection - Eye Eye exam: Present: normal appearance, PERRL, EOMI. Absent: nystagmus - ENT ENT exam: mucous membranes moist - Neck Neck exam: Present: normal inspection, full ROM, trachea midline - Chest Chest inspection: Present: normal inspection, symmetric chest wall rise - Respiratory Respiratory exam: Present: other (Diffuse crackles). Absent: respiratory distress, wheezes, stridor, accessory muscle use, prolonged expiratory phase - Cardiovascular Cardiovascular exam: Present: regular rate, normal rhythm, normal heart sounds - Abdominal Exam Abdominal exam: Present: soft, Non-Tender, normal bowel sounds - Extremities Exam Extremities exam: Present: normal inspection, full ROM. Absent: tenderness, pedal edema - Neurological Exam Neurological exam: Present: alert, oriented X3, normal gait, other (Patient answers questions appropriately.) - Psychiatric Psychiatric exam: Present: normal affect, normal mood - Skin Skin exam: Present: warm, dry, intact, normal color <Pavel Oropeza R - Last Filed: 11/27/17 11:04> Course <Pavel Oropeza - Last Filed: 11/27/17 11:04> - Reevaluation(s) Time: 11:40 - Consultations Time: 12:14 <Troy Jacinto - Last Filed: 11/27/17 12:14> - Reevaluation(s) Reevaluation #1: 82-year-old comes in with cough congestion fever. X-ray shows a right lower lobe infiltrate. Patient on previous admission back in September had been diagnosed with healthcare associated pneumonia related to he had just been in rehabilitation for a joint replacement. He's been at home since that time so this is probably a community acquired pneumonia. (Troy Jacinto) - Consultations Consultation #1: Discussed with , admit. (Troy Jacinto) Vital Signs Temperature 97.7 F 11/27/17 10:25 Pulse Rate 82 11/27/17 10:25 Respiratory Rate 18 11/27/17 10:25 Blood Pressure 129/70 11/27/17 10:25 O2 Sat by Pulse Oximetry 92 11/27/17 10:25 Temperature 97.7 F 11/27/17 10:25 Pulse Rate 82 11/27/17 10:25 Respiratory Rate 18 11/27/17 10:25 Blood Pressure 129/70 11/27/17 10:25 O2 Sat by Pulse Oximetry 92 11/27/17 10:25 Oxygen Delivery Oxygen Delivery Room Air Upper Respiratory Infection - Medical Records Medical records reviewed: Yes I reviewed the patient's medical records. <Pavel Oropeza - Last Filed: 11/27/17 11:04> - Lab Data Lab results reviewed: Yes I reviewed the patient's lab results. Result diagrams: 11/27/17 11:06 11/27/17 11:06 - Radiology Data Radiology results reviewed: Yes I reviewed the patient's radiology results. - EKG Data EKG attestation: Yes I reviewed and interpreted this EKG. EKG shows normal: sinus rhythm Rate: normal Rhythm: NSR [place]/QRS: left axis deviation Interpretation: no acute changes <Troy Jacinto - Last Filed: 11/27/17 12:14> - Lab Data Lab Results 11/27/17 11/27/17 11/27/17 Range/Units 11:06 11:06 11:06 WBC 7.8 (4.3-11.1) K/mcL RBC 5.00 (4.19-5.50) M/mcL Hgb 13.9 (12.9-16.9) g/dL Hct 44.4 (37.5-50.1) % MCV 88.8 (83.0-100.0) fL MCH 27.8 L (28.0-33.3) pg MCHC 31.3 L (31.6-35.5) g/dL RDW 13.1 (11.5-14.5) % Plt Count 245 (140-400) K/mcL MPV 9.8 (9.4-12.4) fL Immature Gran % 0.8 (0-4) % Seg Neutrophils % 76.4 % Lymphocytes % 14.2 % Monocytes % 6.9 % Eosinophils % 1.4 % Basophils % 0.3 % Neutrophils # 6.0 (1.6-8.9) K/mcL Lymphocytes # 1.1 (0.6-4.6) K/mcL Monocytes # 0.5 (0.0-1.3) K/mcL Eosinophils # 0.1 (0.0-0.6) K/mcL Basophils # 0.0 (0.0-0.2) K/mcL PT 11.0 (9.4-12.1) Seconds INR 1.0 APTT 31.0 (26.0-36.0) Seconds Sodium 139 (136-145) mEq/L Potassium 4.3 (3.5-5.1) mEq/L Chloride 105 (98-107) mEq/L Carbon Dioxide 29 (23-29) mEq/L BUN 18 (8-23) mg/dL Creatinine 1.27 (0.70-1.30) mg/dL Est GFR ( Amer) > 60 (> 60) Est GFR (Non-Af Amer) 54 L (> 60) BUN/Creatinine Ratio 14 (6-26) Glucose 119 H (70-105) mg/dL Calculated Osmolality 291 (280-300) Lactic Acid (0.5-2.2) mmol/L Calcium 9.3 (8.6-10.3) mg/dL Total Bilirubin 0.5 (0.3-1.0) mg/dL Direct Bilirubin 0.2 (0.0-0.2) mg/dL Indirect Bilirubin 0.3 (0.0-1.2) mg/dL AST 10 L (13-39) Units/L ALT 5 L (7-52) Units/L Alkaline Phosphatase 90 (34-104) Units/L Troponin I (< 0.04) ng/mL Serum Total Protein 6.5 (6.4-8.9) g/dL Albumin 3.9 (3.5-5.7) g/dL Globulin 2.6 (2.4-3.5) g/dL Albumin/Globulin Ratio 1.5 (1.1-2.2) 11/27/17 11/27/17 Range/Units 11:06 11:06 WBC (4.3-11.1) K/mcL RBC (4.19-5.50) M/mcL Hgb (12.9-16.9) g/dL Hct (37.5-50.1) % MCV (83.0-100.0) fL MCH (28.0-33.3) pg MCHC (31.6-35.5) g/dL RDW (11.5-14.5) % Plt Count (140-400) K/mcL MPV (9.4-12.4) fL Immature Gran % (0-4) % Seg Neutrophils % % Lymphocytes % % Monocytes % % Eosinophils % % Basophils % % Neutrophils # (1.6-8.9) K/mcL Lymphocytes # (0.6-4.6) K/mcL Monocytes # (0.0-1.3) K/mcL Eosinophils # (0.0-0.6) K/mcL Basophils # (0.0-0.2) K/mcL PT (9.4-12.1) Seconds INR APTT (26.0-36.0) Seconds Sodium (136-145) mEq/L Potassium (3.5-5.1) mEq/L Chloride (98-107) mEq/L Carbon Dioxide (23-29) mEq/L BUN (8-23) mg/dL Creatinine (0.70-1.30) mg/dL Est GFR ( Amer) (> 60) Est GFR (Non-Af Amer) (> 60) BUN/Creatinine Ratio (6-26) Glucose (70-105) mg/dL Calculated Osmolality (280-300) Lactic Acid 0.9 (0.5-2.2) mmol/L Calcium (8.6-10.3) mg/dL Total Bilirubin (0.3-1.0) mg/dL Direct Bilirubin (0.0-0.2) mg/dL Indirect Bilirubin (0.0-1.2) mg/dL AST (13-39) Units/L ALT (7-52) Units/L Alkaline Phosphatase (34-104) Units/L Troponin I < 0.03 (< 0.04) ng/mL Serum Total Protein (6.4-8.9) g/dL Albumin (3.5-5.7) g/dL Globulin (2.4-3.5) g/dL Albumin/Globulin Ratio (1.1-2.2) - Radiology Data Chest X-Ray 11/27/17 10:38 IMPRESSION: Right lower lobe infiltrate is identified which may represent atelectasis versus pneumonia D/ / Ike Cochran MD / Ike Cochran MD Interpreting Provider: Ike Cochran MD (Troy Jacinto - SPhil Situation: Demographics, MOA Background: Presenting Complaint, Relevant PMH, Meds, & Allergies Assessment: Vital Signs, Course and respsone to treatment, Exam Concerns, Patient/Family Expectation, Pertinant Lab Results, Outstanding Labs Recommendation: Barrier(s) to disposition, Recommendation based on pending studies, treatments, or consults S.B.A.RNicole Report Given to: Dr. Ophelia Akhtar Repor Time: 11:04 <Pavel Oropeza R - Last Filed: 11/27/17 11:04>
[2017-11-27 11:21] LABS: Basophils % 0.3 %; Eosinophils # 0.1 K/mcL (0.0-0.6); Eosinophils % 1.4 %; Hematocrit 44.4 % (37.5-50.1); Hemoglobin 13.9 g/dL (12.9-16.9); Immature Granulocytes % 0.8 % (0-4); Lymphocytes # 1.1 K/mcL (0.6-4.6); Lymphocytes % 14.2 %; Mean Corpuscular HGB Conc 31.3 g/dL (31.6-35.5); Mean Corpuscular Hemoglobin 27.8 pg (28.0-33.3); Mean Corpuscular Volume 88.8 fL (83.0-100.0); Mean Platelet Volume 9.8 fL (9.4-12.4); Monocytes # 0.5 K/mcL (0.0-1.3); Monocytes % 6.9 %; Platelet Count 245 K/mcL (140-400); Red Cell Distribution Width 13.1 % (11.5-14.5); Segmented Neutrophils % 76.4 %
[2017-11-27 11:36] LABS: Alanine Aminotransferase 5 Units/L (7-52); Albumin 3.9 g/dL (3.5-5.7); Albumin/Globulin Ratio 1.5 (1.1-2.2); Alkaline Phosphatase 90 Units/L (34-104); Aspartate Amino Transferase 10 Units/L (13-39); BUN/Creatinine Ratio 14 (6-26); Bilirubin,Direct 0.2 mg/dL (0.0-0.2); Bilirubin,Indirect 0.3 mg/dL (0.0-1.2); Bilirubin,Total 0.5 mg/dL (0.3-1.0); Blood Urea Nitrogen 18 mg/dL (8-23); Calcium 9.3 mg/dL (8.6-10.3); Carbon Dioxide 29 mEq/L (23-29); Chloride 105 mEq/L (98-107); Globulin 2.6 g/dL (2.4-3.5); Glucose 119 mg/dL (70-105); Osmolality,Calculated 291 (280-300); Potassium 4.3 mEq/L (3.5-5.1); Sodium 139 mEq/L (136-145); Total Protein 6.5 g/dL (6.4-8.9); eGFR For African Americans > 60 (> 60); eGFR For Non-African Americans 54 (> 60)
[2017-11-27] MEDS ORDERED: Levofloxacin 750 MG/150 ML 750 MG/150 ML BAG IVPB ONE (11:52)
[2017-11-27] MEDS ORDERED: Acetaminophen 325 MG TABLET PO PRN (13:10)
[2017-11-27] MEDS ORDERED: Naloxone 0.4 MG/ML INJ IVP PRN (13:10)
[2017-11-27] MEDS ORDERED: Albuterol 2.5 MG/3 ML NEBULIZER IH PRN (13:18)
--- NOTE | 2017-11-27 14:11 | Internal Med History&Physical ---
<Viki Lopez - Last Filed: 11/27/17 14:19> Date of Encounter: 11/27/17 Time of Encounter: 13:40 Assessment and Plan (1) Pneumonia Current visit: Yes Status: Acute Patient has been experiencing increased shortness of breath cough increased confusion. Does have history of COPD No leukocytosis at this time chest x-ray did reveal right lower lobe pneumonia. Blood cultures were obtained initiated on Levaquin which we will continue Bronchodilators as needed steroids to taper Oxygen as needed weaning to room air We will consult PT and OT due to patient's increased weakness Qualifiers: Pneumonia type: due to unspecified organism Laterality: right Lung location: lower lobe of lung Qualified Code(s): J18.1 - Lobar pneumonia, unspecified organism (2) COPD (chronic obstructive pulmonary disease) Current visit: No Status: Chronic Presently no wheezing will continue with oxygen titrated maintain SVT greater than 92% Bronchodilators and steroids Qualifiers: COPD type: unspecified COPD Qualified Code(s): J44.9 - Chronic obstructive pulmonary disease, unspecified (3) DVT prophylaxis Current visit: Yes Status: Chronic Lovenox subcutaneous Internal Medicine - H&P: HPI Chief complaint: Cough Admitted From: Emergency Dept Plans for Post Hospital Care: Home History of present illness: Mr. Buckner is a 82 year old male past alcohol history of CAD COPD and dementia. He was recently admitted to this hospital in September for HCAP Pneumonia. According to patient's family he has been doing well up until about couple of days ago when he began to experience a productive cough with thick yellow sputum. No fevers or chills noticed. He did have increased fatigue decreased appetite and shortness of breath on exertion. Feel he notes that patient is always confused however he is displayed increased confusion over the past 2 days. He is brought to the ER for evaluation. According to ER records lab work did reveal negative flu swab rest of lab work unremarkable. Chest x-ray did not reveal a right lower lobe pneumonia. He was somewhat hypoxic upon presentation with SPO2 92% on room air. He normally does not wear oxygen at home every does have a history of COPD and does use bronchodilators. Blood cultures were obtained he was given antibiotics He has been admitted for further workup evaluation. Presently patient does not appear to be respiratory distress dress he is pleasantly confused and following simple commands he is hemodynamically stable at this time SPO2 is 98% on 2 L nasal cannula. I did review this case with Dr. Dixon who agrees with plan Past Med Surg Social Fam HX - Past Medical History Medical history: arthritis, COPD, coronary artery disease, dementia Psychiatric history: no psych history - Past Surgical History Surgical History: hip replacement - Social History Smoking Status: Former smoker Smokeless Tobacco Status: No Alcohol use: none Drug use: none - Family History Father Living Status: Hx Family Cardiac Disorders: Yes (Stroke) Hx Family Endocrine Disorder: Yes (diabetes) Mother Living Status: Hx Family Cancer: Yes Internal Medicine - H&P: Meds Celecoxib [Celebrex] 200 mg PO DAILY 08/12/17 [History] Cholecalciferol (D-3) [Vitamin D] 5,000 unit PO DAILY 08/12/17 [History] Fluticasone/Vilanterol [Breo Ellipta 200-25 Mcg INH] 1 puff IH BID 08/12/17 [ History] Ipratropium/Albuterol Sulfate [Combivent Respimat Inhal [facility]] 2 puff IH Q6H PRN 08/12/17 [History] Pantoprazole Sodium 40 mg PO DAILY 08/12/17 [History] Pregabalin [Lyrica] 75 mg PO TID 08/12/17 [History] Simvastatin [Zocor] 40 mg PO HS 08/12/17 [History] Tamsulosin [Flomax] 0.4 mg PO DAILY 08/12/17 [History] Aspirin Enteric Coated [Aspirin EC] 325 mg PO DAILY #21 tablet. 08/13/17 [Rx] Oxycodone HCl/Acetaminophen [Percocet 10-325 mg Tablet] 1 tab PO Q8H PRN [History] 3 Allergy/AdvReac Type Severity Reaction Status Date / Time Penicillins [PCN] Allergy Mild See Verified 11/27/17 12:57 Comments Sulfa (Sulfonamide Allergy See Verified 11/27/17 12:57 Antibiotics) Comments haloperidol [From Haldol] AdvReac Agitated Verified 11/27/17 12:57 ROS unobtainable: due to mental status All Systems PM: A 10-system review of systems was performed and is negative for pertinent findings except as documented above in the HPI. - Constitutional Vitals: Temp Pulse Resp BP Pulse Ox 97.7 F 73 18 152/92 96 01/02/18 10:25 11/27/17 13:08 11/27/17 13:08 11/27/17 13:08 11/27/17 13:08 General appearance: Present: A&O X 1 - Head Head exam: Present: atraumatic, normocephalic - Eye Eye exam: Present: PERRL, conjuntiva pink, sclera anicteric Pupils: Present: PERRL - Neck Neck exam general surgery: Present: supple, trachea midline. Absent: lymphadenopathy - Respiratory Respiratory exam: Present: rhonchi - Cardiovascular Cardiovascular exam: Present: RRR, +S1, +S2. Absent: diastolic murmur, gallop, rubs, systolic murmur - GI/Abdominal GI/Abdominal exam: Present: normal bowel sounds, soft, no peritoneal signs. Absent: distended, tenderness - Extremities Exam Extremities exam: Present: warm, radial pulses palpable and symmetrical. Absent : calf tenderness, cyanotic, pedal edema - Neurological Exam Neurological exam: Present: CN II-XII intact, oriented X3, no focal deficits. Absent: pronater drift, facial droop, speech deficit - Skin Skin exam: Present: dry, intact Internal Med - H&P Results - Labs CBC & Chem 7: 11/27/17 11:06 11/27/17 11:06 - EKG Data Prior EKG available for review: yes When compared to previous EKG: there is no significant change Interpretation IM: normal EKG - Diagnostic Studies Chest x-ray Additional comments: Chest X-Ray 11/27/17 10:38 IMPRESSION: Right lower lobe infiltrate is identified which may represent atelectasis versus pneumonia. D/ / 11/27/2017 12:11:33 Ike Cochran MD / [email or web address] Interpreting Provider: Ike Cochran MD <Oscar Dixon P - Last Filed: 11/28/17 08:50> Date of Encounter: 11/28/17 Assessment and Plan (1) Pneumonia Current visit: Yes Status: Acute Qualifiers: Pneumonia type: due to unspecified organism Laterality: right Lung location: lower lobe of lung Qualified Code(s): J18.1 - Lobar pneumonia, unspecified organism (2) COPD (chronic obstructive pulmonary disease) Current visit: No Status: Chronic Qualifiers: COPD type: unspecified COPD Qualified Code(s): J44.9 - Chronic obstructive pulmonary disease, unspecified (3) Shortness of breath Current visit: Yes Status: Acute (4) DVT prophylaxis Current visit: No Status: Acute Internal Medicine - H&P: HPI History of present illness: Mr. Buckner is a 82 year old male Past Med Surg Social Fam HX - Family History Father History Unknown: Yes Adopted: No Family Member Ethnicity: Non- Living Status: Hx Family Cardiac Disorders: No Hx Family Respiratory Disorders: No Hx Family Cancer: No Hx Family GI Disorders: No Hx Family Genitourinary Disorders: No Hx Family Endocrine Disorder: No Hx Family Musculoskeletal Disorders: No Hx Family Neuromuscular Disorders: No Hx Family Neurologic Disorders: No Hx Family HEENT Disorders: No Hx Family Autoimmune Disorders: No Hx Family Reproductive Disorders: No Hx Family Psychosocial Disorders: No Hx Family Medical Disorders: No Mother History Unknown: Yes Adopted: No Living Status: Hx Family Cancer: Yes Sister History Unknown: Yes Adopted: No Family Member Ethnicity: Non- Living Status: Still Living Hx Family Cardiac Disorders: No Hx Family Respiratory Disorders: No Hx Family Cancer: No Hx Family GI Disorders: No Hx Family Genitourinary Disorders: No Hx Family Endocrine Disorder: No Hx Family Musculoskeletal Disorders: Yes (degenerative disc disease) Hx Family Neuromuscular Disorders: No Hx Family Neurologic Disorders: No Hx Family HEENT Disorders: No Hx Family Autoimmune Disorders: No Hx Family Reproductive Disorders: No Hx Family Psychosocial Disorders: No Hx Family Medical Disorders: No All Systems PM: A 10-system review of systems was performed and is negative for pertinent findings except as documented above in the HPI. - Constitutional Vitals: Temp Pulse Resp BP Pulse Ox 97.7 F 79 16 158/84 97 11/28/17 06:59 11/28/17 06:59 11/28/17 07:21 11/28/17 06:59 11/28/17 07:21 Internal Med - H&P Results - Labs CBC & Chem 7: 11/28/17 03:45 11/27/17 11:06 Labs: Short CBC 11/28/17 Range/Units 03:45 WBC 6.4 (4.3-11.1) K/mcL Hgb 14.0 (12.9-16.9) g/dL Hct 43.5 (37.5-50.1) % Plt Count 268 (140-400) K/mcL Neutrophils # 5.6 (1.6-8.9) K/mcL - Attending Attestation I examined this patient and my medical decision-making was reviewed with the Resident Physician/DOCUMENT REVIEW ATTORNEY. I agree with the documented findings, disposition and treatment plan as described except to the extent set forth below. I have examined this patient independently. I agree with the management and plan of thepractitioner Miss Drew. Close monitoring of the patient's respiratory status.
[2017-11-27] MEDS: MethylPREDNISolone 40 MG/ML VIAL IVP SCH (16:07)
[2017-11-27] MEDS: Ipratropium/Albuterol Neb 3 ML IH SCH ×3 (16:54→23:04)
--- NOTE | 2017-11-27 17:14 | Electrocardiograph Report ---
[place] [id number] Test Date: 2017-11-27 Pat Name: Seth Buckner Department: [id number] Room: 2A12 Gender: M [employer] Det[employer]er: ABIMBOLA : 1935 Requested By: Pavel Oropeza Order Number: [id number] Reading MD: Triston Hathaway DO Measurements Intervals [place] Rate: 73 P: 50 HI: 140 QRS: -40 QRSD: 100 T: 43 QT: 380 QTc: 406 Interpretive Statements SINUS RHYTHM MARKED LEFT AXIS DEVIATION Electronically Signed On 11-27-2017 17:12:45 EST by Triston Hathaway DO
[2017-11-27] MEDS ORDERED: *HR* OxyCODONE/APAP 10/325 TABLET PO PRN (23:48)
[2017-11-28] MEDS: MethylPREDNISolone 40 MG/ML VIAL IVP SCH ×3 (00:04→15:35)
[2017-11-28] MEDS: Ipratropium/Albuterol Neb 3 ML IH SCH ×6 (03:29→23:24)
[2017-11-28 05:01] LABS: Basophils % 0.2 %; Hematocrit 43.5 % (37.5-50.1); Immature Granulocytes % 0.6 % (0-4); Lymphocytes # 0.7 K/mcL (0.6-4.6); Lymphocytes % 10.8 %; Mean Corpuscular HGB Conc 32.2 g/dL (31.6-35.5); Mean Corpuscular Hemoglobin 28.1 pg (28.0-33.3); Mean Corpuscular Volume 87.2 fL (83.0-100.0); Mean Platelet Volume 9.9 fL (9.4-12.4); Monocytes % 0.5 %; Neutrophils # 5.6 K/mcL (1.6-8.9); Nucleated Red Blood Cells 0.3 /100 WBC (0); Platelet Count 268 K/mcL (140-400); Red Blood Count 4.99 M/mcL (4.19-5.50); Red Cell Distribution Width 12.9 % (11.5-14.5); Segmented Neutrophils % 87.9 %
[2017-11-28] MEDS: *HR* Enoxaparin 40 MG/0.4 ML SYRINGE SQ SCH (05:34)
[2017-11-28 05:41] LABS: Platelet Estimate Normal (Normal)
[2017-11-28] MEDS ORDERED: *HR* OxyCODONE/APAP 10/325 TABLET PO PRN (07:52)
[2017-11-28] MEDS ORDERED: *HR* OxyCODONE/APAP 10/325 TABLET PO SCH (08:30)
--- NOTE | 2017-11-28 08:31 | Internal Med Progress Note ---
Date of Encounter: 11/28/17 Time of Encounter: 08:29 - Assessment and plan (1) Pneumonia Current Visit: Yes Status: Acute Assessment and plan: 82/male Background history of COPD. Was recently hospitalized for pneumonia. Recovered completely after completion of antibiotics for appropriate duration. Admitted with persistent shortness of breath, change in sputum and ongoing cough. Influenza negative. Lactic acid normal/blood culture no growth so for. Patient does not use accessory muscles of respiration Patient does have bilateral crepitations right more than left. Plan: Patient is presently on levofloxacin Day 2 Also receiving intravenous Solu-Medrol 40 mg every 8 hourly. Patient is on inhaled bronchodilators. Have closely monitoring patient's pulmonary status. Qualifiers: Pneumonia type: due to unspecified organism Laterality: right Lung location: lower lobe of lung Qualified Code(s): J18.1 - Lobar pneumonia, unspecified organism (2) COPD (chronic obstructive pulmonary disease) Current Visit: No Status: Chronic Assessment and plan: Patient does have background history of COPD. We will continue at this point steroids intravenously and inhaled bronchodilators. Close monitoring of the respiratory status. Qualifiers: COPD type: unspecified COPD Qualified Code(s): J44.9 - Chronic obstructive pulmonary disease, unspecified (3) Shortness of breath Current Visit: Yes Status: Acute Assessment and plan: See above (4) DVT prophylaxis Current Visit: No Status: Acute Assessment and plan: Lovenox medical decision making : moderate to severe risk of worsening in site being on appropriate medications and treatment due to underlying comorbid conditions and advanced age. - Subjective Interval history: Patient seen and examined. Chart reviewed. Patient is complaining of shortness of breath, cough along with expectoration. Which and denies chest pain, nausea, vomiting, abdominal pain, diarrhea or dizziness. - Constitutional Vitals: Temp Pulse Resp BP Pulse Ox 97.7 F 79 16 158/84 97 11/28/17 06:59 11/28/17 06:59 11/28/17 07:21 11/28/17 06:59 11/28/17 07:21 General appearance: Present: A&O X 1, A&O X 3, pleasant, no acute distress, answers questions appropriately - Head Head exam: Present: atraumatic, normocephalic - Eye Eye exam: Present: PERRL, conjuntiva pink, sclera anicteric Pupils: Present: PERRL - Neck Neck exam general surgery: Present: supple, trachea midline. Absent: lymphadenopathy - Respiratory Respiratory exam: Present: CTAB, rales, wheezes. Absent: accessory muscle use, rhonchi Additional comments: Patient does have bilateral crepitations right more than left. Patient is to have polyphonic rhonchi. - Cardiovascular Cardiovascular exam: Present: RRR, +S1, +S2. Absent: diastolic murmur, gallop, rubs, systolic murmur - GI/Abdominal GI/Abdominal exam: Present: normal bowel sounds, soft, no peritoneal signs. Absent: distended, tenderness - Extremities Exam Extremities exam: Present: warm, radial pulses palpable and symmetrical. Absent : calf tenderness, cyanotic, pedal edema - Neurological Exam Neurological exam: Present: CN II-XII intact, oriented X3, no focal deficits. Absent: pronater drift, facial droop, speech deficit - Skin Skin exam: Present: dry, intact Internal Medicine: Result - Labs CBC & Chem 7: 11/28/17 03:45 11/27/17 11:06 Labs: Short CBC 11/28/17 Range/Units 03:45 WBC 6.4 (4.3-11.1) K/mcL Hgb 14.0 (12.9-16.9) g/dL Hct 43.5 (37.5-50.1) % Plt Count 268 (140-400) K/mcL Neutrophils # 5.6 (1.6-8.9) K/mcL - ABG Interpretation ABG results: PT/INR, D-dimer PT 11.0 Seconds (9.4-12.1) 11/27/17 11:06 Consult Discharge Plan - Plan Referrals: Aj Snyder MD [Primary Care Provider] -
[2017-11-28] MEDS: Celecoxib 200 MG CAPSULE PO SCH (09:03)
[2017-11-28] MEDS: Aspirin Enteric Coated 325 MG Tablet PO SCH (09:03)
[2017-11-28] MEDS: Cholecalciferol (D-3) 1,000 UNIT TABLET PO SCH (09:03)
[2017-11-28] MEDS: Pregabalin 75 MG CAPSULE PO SCH ×3 (09:03→20:11)
[2017-11-28] MEDS ORDERED: Levofloxacin 750 MG/150 ML 750 MG/150 ML BAG IVPB SCH (13:00)
[2017-11-28] MEDS ORDERED: *HR* LORazepam 0.5 MG TABLET PO ONE ×2 (15:30→18:14)
[2017-11-29] MEDS: MethylPREDNISolone 40 MG/ML VIAL IVP SCH ×3 (00:24→16:38)
[2017-11-29] MEDS: Ipratropium/Albuterol Neb 3 ML IH SCH ×6 (03:20→23:43)
[2017-11-29] MEDS: *HR* Enoxaparin 40 MG/0.4 ML SYRINGE SQ SCH (06:32)
[2017-11-29 06:47] LABS: Basophils % 0.1 %; Hematocrit 41.9 % (37.5-50.1); Hemoglobin 13.7 g/dL (12.9-16.9); Immature Granulocytes % 0.9 % (0-4); Lymphocytes # 1.1 K/mcL (0.6-4.6); Lymphocytes % 7.8 %; Mean Corpuscular HGB Conc 32.7 g/dL (31.6-35.5); Mean Corpuscular Hemoglobin 27.9 pg (28.0-33.3); Mean Corpuscular Volume 85.3 fL (83.0-100.0); Mean Platelet Volume 9.6 fL (9.4-12.4); Monocytes # 0.3 K/mcL (0.0-1.3); Monocytes % 1.9 %; Platelet Count 311 K/mcL (140-400); Red Blood Count 4.91 M/mcL (4.19-5.50); Red Cell Distribution Width 13.2 % (11.5-14.5); Segmented Neutrophils % 89.3 %
[2017-11-29 07:02] LABS: Alanine Aminotransferase 8 Units/L (7-52); Albumin 3.8 g/dL (3.5-5.7); Albumin/Globulin Ratio 1.3 (1.1-2.2); Alkaline Phosphatase 77 Units/L (34-104); Aspartate Amino Transferase 22 Units/L (13-39); BUN/Creatinine Ratio 28 (6-26); Bilirubin,Total 0.3 mg/dL (0.3-1.0); Blood Urea Nitrogen 30 mg/dL (8-23); Calcium 9.3 mg/dL (8.6-10.3); Carbon Dioxide 23 mEq/L (23-29); Chloride 108 mEq/L (98-107); Globulin 2.9 g/dL (2.4-3.5); Glucose 164 mg/dL (70-105); Osmolality,Calculated 300 (280-300); Potassium 3.8 mEq/L (3.5-5.1); Sodium 140 mEq/L (136-145); Total Protein 6.7 g/dL (6.4-8.9); eGFR For African Americans > 60 (> 60); eGFR For Non-African Americans > 60 (> 60)
[2017-11-29] MEDS: Aspirin Enteric Coated 325 MG Tablet PO SCH (11:03)
[2017-11-29] MEDS: Cholecalciferol (D-3) 1,000 UNIT TABLET PO SCH (11:03)
[2017-11-29] MEDS: Celecoxib 200 MG CAPSULE PO SCH (11:03)
[2017-11-29] MEDS: Pregabalin 75 MG CAPSULE PO SCH ×3 (11:03→20:30)
[2017-11-29] MEDS ORDERED: Levofloxacin 750 MG/150 ML 750 MG/150 ML BAG IVPB SCH (13:00)
--- NOTE | 2017-11-29 16:03 | Internal Med Progress Note ---
Date of Encounter: 11/29/17 Time of Encounter: 16:01 - Assessment and plan (1) Pneumonia Current Visit: Yes Status: Acute Assessment and plan: 82/male Background history of COPD. Was recently hospitalized for pneumonia. Recovered completely after completion of antibiotics for appropriate duration. Admitted with persistent shortness of breath, change in sputum and ongoing cough. Influenza negative. Lactic acid normal/blood culture no growth so for. Patient does not use accessory muscles of respiration Patient does have bilateral crepitations right more than left. Plan: Patient is presently on levofloxacin Day 2 Also receiving intravenous Solu-Medrol 40 mg every 8 hourly. Patient is on inhaled bronchodilators. Have closely monitoring patient's pulmonary status. 11/29/2017 Background history of COPD: Admitted with pneumonia. Blood cultures negative so far. Levofloxacin: Day 3 Clinically patient improved much. Had a long chat with the patient's son. Family is not keen for any ECF/SNF placement. Family prefers to take patient home tomorrow. Qualifiers: Pneumonia type: due to unspecified organism Laterality: right Lung location: lower lobe of lung Qualified Code(s): J18.1 - Lobar pneumonia, unspecified organism (2) COPD (chronic obstructive pulmonary disease) Current Visit: No Status: Chronic Assessment and plan: Patient does have background history of COPD. We will continue at this point steroids intravenously and inhaled bronchodilators. Close monitoring of the respiratory status. Qualifiers: COPD type: unspecified COPD Qualified Code(s): J44.9 - Chronic obstructive pulmonary disease, unspecified (3) Shortness of breath Current Visit: Yes Status: Acute Assessment and plan: See above (4) DVT prophylaxis Current Visit: No Status: Acute Assessment and plan: Lovenox medical decision making : moderate to severe risk of worsening in site being on appropriate medications and treatment due to underlying comorbid conditions and advanced age. - Subjective Interval history: Patient seen and examined. Chart reviewed. Patient is complaining of shortness of breath, cough along with expectoration. Which and denies chest pain, nausea, vomiting, abdominal pain, diarrhea or dizziness. 11/29/2017 Patient seen and examined. Chart reviewed. Patient's son is at bedside. Patient's son informed me that patient has advanced dementia. Patient's and also inform me that patient has a very labile mood. - Constitutional Vitals: Temp Pulse Resp BP Pulse Ox 98.1 F 96 18 142/84 91 11/29/17 10:42 11/29/17 10:42 11/29/17 10:42 11/29/17 10:42 11/29/17 10:42 General appearance: Present: A&O X 1, A&O X 3, pleasant, no acute distress, answers questions appropriately - Head Head exam: Present: atraumatic, normocephalic - Eye Eye exam: Present: PERRL, conjuntiva pink, sclera anicteric Pupils: Present: PERRL - Neck Neck exam general surgery: Present: supple, trachea midline. Absent: lymphadenopathy - Respiratory Respiratory exam: Present: CTAB. Absent: accessory muscle use, rales, rhonchi, wheezes - Cardiovascular Cardiovascular exam: Present: RRR, +S1, +S2. Absent: diastolic murmur, gallop, rubs, systolic murmur - GI/Abdominal GI/Abdominal exam: Present: normal bowel sounds, soft, no peritoneal signs. Absent: distended, tenderness - Extremities Exam Extremities exam: Present: warm, radial pulses palpable and symmetrical. Absent : calf tenderness, cyanotic, pedal edema - Neurological Exam Neurological exam: Present: CN II-XII intact, oriented X3, no focal deficits. Absent: pronater drift, facial droop, speech deficit - Skin Skin exam: Present: dry, intact Internal Medicine: Result - Labs CBC & Chem 7: 11/29/17 06:39 11/29/17 06:39 Labs: Short CBC 11/29/17 Range/Units 06:39 WBC 13.4 H D (4.3-11.1) K/mcL Hgb 13.7 (12.9-16.9) g/dL Hct 41.9 (37.5-50.1) % Plt Count 311 (140-400) K/mcL Neutrophils # 12.0 H (1.6-8.9) K/mcL BMP 11/29/17 06:39 Sodium 140 Potassium 3.8 Chloride 108 H Carbon Dioxide 23 BUN 30 H Creatinine 1.08 Glucose 164 H Calcium 9.3 Liver Function 11/29/17 Range/Units 06:39 Total Bilirubin 0.3 (0.3-1.0) mg/dL AST 22 (13-39) Units/L ALT 8 (7-52) Units/L Alkaline Phosphatase 77 (34-104) Units/L Albumin 3.8 (3.5-5.7) g/dL - ABG Interpretation ABG results: PT/INR, D-dimer PT 11.0 Seconds (9.4-12.1) 11/27/17 11:06 Consult Discharge Plan - Plan Referrals: Aj Snyder MD [Primary Care Provider] - 12/10/17 9:45 am (Please follow up as schedule..)
[2017-11-29] MEDS ORDERED: *HR* LORazepam 2 MG/ML VIAL IVP ONE ×2 (23:40→23:41)
[2017-11-30] MEDS: Ipratropium/Albuterol Neb 3 ML IH SCH ×3 (03:49→11:21)
[2017-11-30 04:38] LABS: Basophils % 0.3 %; Hematocrit 41.4 % (37.5-50.1); Hemoglobin 13.6 g/dL (12.9-16.9); Immature Granulocytes % 1.3 % (0-4); Lymphocytes % 8.5 %; Mean Corpuscular HGB Conc 32.9 g/dL (31.6-35.5); Mean Corpuscular Volume 85.4 fL (83.0-100.0); Mean Platelet Volume 9.9 fL (9.4-12.4); Monocytes # 0.4 K/mcL (0.0-1.3); Monocytes % 3.1 %; Neutrophils # 10.2 K/mcL (1.6-8.9); Platelet Count 309 K/mcL (140-400); Red Blood Count 4.85 M/mcL (4.19-5.50); Red Cell Distribution Width 13.4 % (11.5-14.5); Segmented Neutrophils % 86.8 %
[2017-11-30 04:53] LABS: Alanine Aminotransferase 10 Units/L (7-52); Albumin 3.4 g/dL (3.5-5.7); Albumin/Globulin Ratio 1.3 (1.1-2.2); Alkaline Phosphatase 71 Units/L (34-104); Aspartate Amino Transferase 21 Units/L (13-39); BUN/Creatinine Ratio 38 (6-26); Bilirubin,Total 0.3 mg/dL (0.3-1.0); Blood Urea Nitrogen 45 mg/dL (8-23); Calcium 8.8 mg/dL (8.6-10.3); Carbon Dioxide 25 mEq/L (23-29); Chloride 110 mEq/L (98-107); Globulin 2.7 g/dL (2.4-3.5); Glucose 159 mg/dL (70-105); Osmolality,Calculated 309 (280-300); Potassium 4.2 mEq/L (3.5-5.1); Sodium 142 mEq/L (136-145); Total Protein 6.1 g/dL (6.4-8.9); eGFR For African Americans > 60 (> 60); eGFR For Non-African Americans 60 (> 60)
[2017-11-30] MEDS: *HR* Enoxaparin 40 MG/0.4 ML SYRINGE SQ SCH (06:29)
[2017-11-30] MEDS: MethylPREDNISolone 40 MG/ML VIAL IVP SCH (06:29)
[2017-11-30] MEDS: Celecoxib 200 MG CAPSULE PO SCH (09:44)
[2017-11-30] MEDS: Cholecalciferol (D-3) 1,000 UNIT TABLET PO SCH (09:44)
[2017-11-30] MEDS: Aspirin Enteric Coated 325 MG Tablet PO SCH (09:44)
[2017-11-30] MEDS: Pregabalin 75 MG CAPSULE PO SCH (09:44)
[2017-11-30 11:16] VITALS: BP 131/77
--- NOTE | 2017-11-30 11:36 | Discharge Summary ---
Date of Encounter: 12/08/17 Time of Encounter: 11:32 - Discharge Diagnosis (1) Pneumonia Priority: Primary Status: Acute Qualifiers: Pneumonia type: due to unspecified organism Laterality: right Lung location: lower lobe of lung Qualified Code(s): J18.1 - Lobar pneumonia, unspecified organism (2) COPD (chronic obstructive pulmonary disease) Priority: Primary Status: Chronic Qualifiers: COPD type: unspecified COPD Qualified Code(s): J44.9 - Chronic obstructive pulmonary disease, unspecified (3) Shortness of breath Priority: Primary Status: Acute (4) DVT prophylaxis Priority: Secondary Status: Acute - Discharge Medications Prescriptions: Levofloxacin [Levaquin] 500 mg PO DAILY #3 tablet predniSONE [Prednisone] 50 mg PO DAILY #3 tablet Home Medications: Celecoxib [Celebrex] 200 mg PO DAILY 08/12/17 [History] Cholecalciferol (D-3) [Vitamin D] 5,000 unit PO DAILY 08/12/17 [History] Fluticasone/Vilanterol [Breo Ellipta 200-25 Mcg INH] 1 puff IH BID 08/12/17 [ History] Ipratropium/Albuterol Sulfate [Combivent Respimat Inhal [place]] 2 puff IH Q6H PRN 08/12/17 [History] Pantoprazole Sodium 40 mg PO DAILY 08/12/17 [History] Pregabalin [Lyrica] 75 mg PO TID 08/12/17 [History] Simvastatin [Zocor] 40 mg PO HS 08/12/17 [History] Tamsulosin [Flomax] 0.4 mg PO DAILY 08/12/17 [History] Aspirin Enteric Coated [Aspirin EC] 325 mg PO DAILY #21 tablet. 08/13/17 [Rx] Oxycodone HCl/Acetaminophen [Percocet 10-325 mg Tablet] 1 tab PO Q8H PRN [History] Levofloxacin [Levaquin] 500 mg PO DAILY #3 tablet 11/30/17 [Rx] predniSONE [Prednisone] 50 mg PO DAILY #3 tablet 11/30/17 [Rx] Allergies/Adverse Reactions: 3 Allergy/AdvReac Type Severity Reaction Status Date / Time Penicillins [PCN] Allergy Mild See Verified 11/27/17 12:57 Comments Sulfa (Sulfonamide Allergy See Verified 11/27/17 12:57 Antibiotics) Comments haloperidol [From Haldol] AdvReac Agitated Verified 11/27/17 12:57 Date of admission: 11/27/17 13:10 Primary care physician: Aj Snyder Discharging clinician: Oscar Dixon - Patient Status Disposition: Home, Self-Care Condition: Fair Overall status at discharge: patient is progressing back to baseline - Discharge Instructions Instructions: Prednisone (By mouth), Levofloxacin (By mouth) Follow Up With: Aj Snyder MD [Primary Care Provider] - 12/10/17 9:45 am (Please follow up as schedule..) - Diet and Activity Activity: increase activity as tolerated Diet: low fat, low cholesterol Interval History: Mr. Buckner is a 82 year old male past alcohol history of CAD COPD and dementia. He was recently admitted to this hospital in September for HCAP Pneumonia. According to patient's family he has been doing well up until about couple of days ago when he began to experience a productive cough with thick yellow sputum. No fevers or chills noticed. He did have increased fatigue decreased appetite and shortness of breath on exertion. Feel he notes that patient is always confused however he is displayed increased confusion over the past 2 days. He is brought to the ER for evaluation. According to ER records lab work did reveal negative flu swab rest of lab work unremarkable. Chest x-ray did not reveal a right lower lobe pneumonia. He was somewhat hypoxic upon presentation with SPO2 92% on room air. He normally does not wear oxygen at home every does have a history of COPD and does use bronchodilators. Blood cultures were obtained he was given antibiotics He has been admitted for further workup evaluation. Presently patient does not appear to be respiratory distress dress he is pleasantly confused and following simple commands he is hemodynamically stable at this time SPO2 is 98% on 2 L nasal cannula. Hospital course: Hospital course: Patient was hospitalized. He was started on intravenous levofloxacin. He was also given intravenous Solu-Medrol along with the inhaled bronchodilators. Patient responded well to this treatment. Patient's son informed us that patient is known to have advanced dementia and patient along with his family preferred to take care of him at home rather than sending him to any assisted living/longterm facility. Plan: Patient can go home today Follow up with primary care in 1-2 weeks. Upon discharge patient will get levofloxacin 500 mg once a day for 3 days. Upon discharge patient will get prednisone 50 mg once a day for 3 days. all questions answered. - Time Spent with Patient Total time spent providing and/or coordinating discharge services: - Constitutional Vitals: Temp Pulse Resp BP Pulse Ox 97.6 F 89 18 131/77 96 11/30/17 11:14 11/30/17 11:14 11/30/17 11:14 11/30/17 11:14 11/30/17 11:14 General appearance: Present: A&O X 1, A&O X 3, pleasant, no acute distress, answers questions appropriately - Head Head exam: Present: atraumatic, normocephalic - Eye Eye exam: Present: PERRL, conjuntiva pink, sclera anicteric Pupils: Present: PERRL - Neck Neck exam general surgery: Present: supple, trachea midline. Absent: lymphadenopathy - Respiratory Respiratory exam: Present: CTAB. Absent: accessory muscle use, rales, rhonchi, wheezes - Cardiovascular Cardiovascular exam: Present: RRR, +S1, +S2. Absent: diastolic murmur, gallop, rubs, systolic murmur - GI/Abdominal GI/Abdominal exam: Present: normal bowel sounds, soft, no peritoneal signs. Absent: distended, tenderness - Extremities Exam Extremities exam: Present: warm, radial pulses palpable and symmetrical. Absent : calf tenderness, cyanotic, pedal edema - Neurological Exam Neurological exam: Present: CN II-XII intact, oriented X3, no focal deficits. Absent: pronater drift, facial droop, speech deficit - Skin Skin exam: Present: dry, intact
--- NOTE | 2017-11-30 11:53 | Physician Discharge Referral ---
Home Health/Hosp Referral Info Transfer to: Home Health - Diagnosis (1) Pneumonia Priority: Primary Status: Acute (2) COPD (chronic obstructive pulmonary disease) Priority: Primary Status: Chronic (3) Shortness of breath Priority: Primary Status: Acute (4) DVT prophylaxis Priority: Secondary Status: Acute - Respiratory Orders Smoking Cessation: Smoking cessation has been advised. For more information, call the [place] Tobacco Quit Line at 0-101-CKCV-NOW. - Services Needed Following services are medically necessary services: Home Health Aide - Transfer Medications Prescriptions: Levofloxacin [Levaquin] 500 mg PO DAILY #3 tablet predniSONE [Prednisone] 50 mg PO DAILY #3 tablet Home Medications: Celecoxib [Celebrex] 200 mg PO DAILY 08/12/17 [History] Cholecalciferol (D-3) [Vitamin D] 5,000 unit PO DAILY 08/12/17 [History] Fluticasone/Vilanterol [Breo Ellipta 200-25 Mcg INH] 1 puff IH BID 08/12/17 [ History] Ipratropium/Albuterol Sulfate [Combivent Respimat Inhal [place]] 2 puff IH Q6H PRN 08/12/17 [History] Pantoprazole Sodium 40 mg PO DAILY 08/12/17 [History] Pregabalin [Lyrica] 75 mg PO TID 08/12/17 [History] Simvastatin [Zocor] 40 mg PO HS 08/12/17 [History] Tamsulosin [Flomax] 0.4 mg PO DAILY 08/12/17 [History] Aspirin Enteric Coated [Aspirin EC] 325 mg PO DAILY #21 tablet. 08/13/17 [Rx] Oxycodone HCl/Acetaminophen [Percocet 10-325 mg Tablet] 1 tab PO Q8H PRN [History] Levofloxacin [Levaquin] 500 mg PO DAILY #3 tablet 11/30/17 [Rx] predniSONE [Prednisone] 50 mg PO DAILY #3 tablet 11/30/17 [Rx] Allergies/Adverse Reactions: 3 Allergy/AdvReac Type Severity Reaction Status Date / Time Penicillins [PCN] Allergy Mild See Verified 11/27/17 12:57 Comments Sulfa (Sulfonamide Allergy See Verified 11/27/17 12:57 Antibiotics) Comments haloperidol [From Haldol] AdvReac Agitated Verified 11/27/17 12:57 Certification: Further, I certify that my clinical findings support that this patient is homebound (i.e. absences from home require considerable and taxing effort and are for medical reasons or religion services or infrequently or short duration when for other reasons) because: Homebound Reason: Patient requires assistance of a person or device to safely leave home Attestation: My signature below is to certify that this patient is under my care and that I, or nurse practitioner, or a physician's registered medical assistant working with me, has a face-to -face encounter with this patient.
== END 2017-11-30 12:17 | disposition home or self-care (01) | DRG 190 ==
LOC: EMEROO 10:23 → 2ANU 10:23
PROVIDERS: ADMIT Internal Medicine; ATTEND Internal Medicine

== ENCOUNTER 2018-09-24 12:47 | Observation (INO) ==
[2018-09-24] MEDS ORDERED: Ipratropium/Albuterol Neb 3 ML IH ONE (13:36)
[2018-09-24] MEDS ORDERED: methylPREDNISolone 125 MG/2 ML VIAL IVP ONE (13:40)
[2018-09-24 13:53] LABS: Basophils % 0.4 %; Eosinophils # 0.2 K/mcL (0.0-0.6); Eosinophils % 3.5 %; Hematocrit 43.8 % (37.5-50.1); Hemoglobin 14.1 g/dL (12.9-16.9); Immature Granulocytes % 0.4 % (0-4); Lymphocytes # 1.5 K/mcL (0.6-4.6); Lymphocytes % 28.1 %; Mean Corpuscular HGB Conc 32.2 g/dL (31.6-35.5); Mean Corpuscular Hemoglobin 28.7 pg (28.0-33.3); Mean Corpuscular Volume 89.2 fL (83.0-100.0); Mean Platelet Volume 10.3 fL (9.4-12.4); Monocytes # 0.5 K/mcL (0.0-1.3); Monocytes % 9.3 %; Platelet Count 181 K/mcL (140-400); Red Blood Count 4.91 M/mcL (4.19-5.50); Red Cell Distribution Width 13.2 % (11.5-14.5); Segmented Neutrophils % 58.3 %
[2018-09-24 14:12] LABS: BUN/Creatinine Ratio 15 (6-26); Blood Urea Nitrogen 20 mg/dL (8-23); Calcium 8.7 mg/dL (8.6-10.3); Carbon Dioxide 28 mEq/L (23-29); Chloride 107 mEq/L (98-107); Glucose 95 mg/dL (70-105); Osmolality,Calculated 292 (280-300); Potassium 4.4 mEq/L (3.5-5.1); Sodium 140 mEq/L (136-145); eGFR For Non-African Americans 50 (> 60)
[2018-09-24 14:13] LABS: Troponin I < 0.03 ng/mL (< 0.04)
--- NOTE | 2018-09-24 14:35 | Emergency Department Note ---
Disposition Clinical Impression: COPD with acute exacerbation, Edema Disposition: Admitted As Inpatient Condition: Fair General Adult HPI - General Chief complaint: ED Altered Mental Status Stated complaint: Oxygen level 87 Time Seen by Provider: 09/24/18 12:54 Source: patient, family Limitations: no limitations - History of Present Illness Pain Scale: 0 - Related Data Home Medications Medication Instructions Recorded Confirmed RX: Celecoxib [Celebrex] 200 mg PO DAILY 08/12/17 09/24/18 RX: Cholecalciferol (D-3) [Vitamin 5,000 unit PO DAILY 08/12/17 09/24/18 D] RX: Fluticasone/Vilanterol [Breo 1 puff IH BID 08/12/17 09/24/18 Ellipta 200-25 Mcg INH] RX: Ipratropium/Albuterol Sulfate 2 puff IH Q6H PRN 08/12/17 09/24/18 [Combivent Respimat 20-100 Mcg] RX: Pantoprazole Sodium 40 mg PO DAILY 08/12/17 09/24/18 RX: Simvastatin [Zocor] 40 mg PO HS 08/12/17 09/24/18 RX: Tamsulosin [Flomax] 0.4 mg PO DAILY 08/12/17 09/24/18 RX: Oxycodone HCl/Acetaminophen 1 tab PO Q8H PRN 10/04/17 09/24/18 [Percocet 10-325 mg Tablet] Memantine HCl 5 mg PO DAILY 09/24/18 09/24/18 Previous Rx's Medication Instructions Recorded RX: Aspirin Enteric Coated 325 mg PO DAILY #21 tablet. 08/13/17 [Aspirin EC] Allergies Allergy/AdvReac Type Severity Reaction Status Date / Time Penicillins [PCN] Allergy Mild See Verified 09/24/18 13:05 Comments Sulfa (Sulfonamide Allergy See Verified 09/24/18 13:05 Antibiotics) Comments haloperidol [From Haldol] AdvReac Agitated Verified 09/24/18 13:05 Past Medical History - Past Medical History Medical history: Reports: arthritis, COPD, coronary artery disease, dementia Surgical history: Reports: hip replacement Psychiatric history: Reports: no psych history - Social History Smoking Status: Former smoker Smokeless Tobacco Status: No Alcohol use: Reports: none Drug use: Reports: none Physical Exam - General Limitations: no limitations General appearance: alert, in no apparent distress Course Vital Signs Temperature 98.0 F 09/24/18 13:01 Pulse Rate 63 09/24/18 13:01 Respiratory Rate 20 09/24/18 13:01 Blood Pressure 124/71 09/24/18 13:01 O2 Sat by Pulse Oximetry 97 09/24/18 13:01 Temperature 98.0 F 09/24/18 13:16 Pulse Rate 71 09/24/18 14:59 Respiratory Rate 16 09/24/18 14:59 Blood Pressure 154/72 09/24/18 14:59 O2 Sat by Pulse Oximetry 98 09/24/18 14:59 Oxygen Delivery Oxygen Delivery Nasal Cannula Medical Decision Making - Lab Data Result diagrams: 09/24/18 13:24 09/24/18 13:24 Lab Results 09/24/18 09/24/18 09/24/18 Range/Units 13:24 13:24 13:24 WBC 5.2 (4.3-11.1) K/mcL RBC 4.91 (4.19-5.50) M/mcL Hgb 14.1 (12.9-16.9) g/dL Hct 43.8 (37.5-50.1) % MCV 89.2 (83.0-100.0) fL MCH 28.7 (28.0-33.3) pg MCHC 32.2 (31.6-35.5) g/dL RDW 13.2 (11.5-14.5) % Plt Count 181 (140-400) K/mcL MPV 10.3 (9.4-12.4) fL Immature Gran % 0.4 (0-4) % Seg Neutrophils % 58.3 % Lymphocytes % 28.1 % Monocytes % 9.3 % Eosinophils % 3.5 % Basophils % 0.4 % Neutrophils # 3.0 (1.6-8.9) K/mcL Lymphocytes # 1.5 (0.6-4.6) K/mcL Monocytes # 0.5 (0.0-1.3) K/mcL Eosinophils # 0.2 (0.0-0.6) K/mcL Basophils # 0.0 (0.0-0.2) K/mcL Sodium 140 (136-145) mEq/L Potassium 4.4 (3.5-5.1) mEq/L Chloride 107 (98-107) mEq/L Carbon Dioxide 28 (23-29) mEq/L BUN 20 (8-23) mg/dL Creatinine 1.37 H (0.70-1.30) mg/dL Est GFR ( Amer) > 60 (> 60) Est GFR (Non-Af Amer) 50 L (> 60) BUN/Creatinine Ratio 15 (6-26) Glucose 95 (70-105) mg/dL Calculated Osmolality 292 (280-300) Lactic Acid (0.5-2.2) mmol/L Calcium 8.7 (8.6-10.3) mg/dL Troponin I < 0.03 (< 0.04) ng/mL B-Natriuretic Peptide 49 (Less than 100) pg/mL 09/24/18 Range/Units 14:46 WBC (4.3-11.1) K/mcL RBC (4.19-5.50) M/mcL Hgb (12.9-16.9) g/dL Hct (37.5-50.1) % MCV (83.0-100.0) fL MCH (28.0-33.3) pg MCHC (31.6-35.5) g/dL RDW (11.5-14.5) % Plt Count (140-400) K/mcL MPV (9.4-12.4) fL Immature Gran % (0-4) % Seg Neutrophils % % Lymphocytes % % Monocytes % % Eosinophils % % Basophils % % Neutrophils # (1.6-8.9) K/mcL Lymphocytes # (0.6-4.6) K/mcL Monocytes # (0.0-1.3) K/mcL Eosinophils # (0.0-0.6) K/mcL Basophils # (0.0-0.2) K/mcL Sodium (136-145) mEq/L Potassium (3.5-5.1) mEq/L Chloride (98-107) mEq/L Carbon Dioxide (23-29) mEq/L BUN (8-23) mg/dL Creatinine (0.70-1.30) mg/dL Est GFR ( Amer) (> 60) Est GFR (Non-Af Amer) (> 60) BUN/Creatinine Ratio (6-26) Glucose (70-105) mg/dL Calculated Osmolality (280-300) Lactic Acid 0.8 (0.5-2.2) mmol/L Calcium (8.6-10.3) mg/dL Troponin I (< 0.04) ng/mL B-Natriuretic Peptide (Less than 100) pg/mL Attestation Statement - Attestation Attestation: Resident Attestation: I examined this patient and my medical decision making was reviewed with the Resident Physician. I agree with the documented findings, disposition and treatment plan as described except to the extent set forth below. We independently had [id number] contact with the patient. Resident physician Dr. Jw Smallwood Please see resident note for further details an disposition Patient with history of COPD, coronary artery disease, CHF, dementia who lives at home with family and does not have home O2 presents to the emergency department today for evaluation of dyspnea as well as confusion. Symptoms started couple of days ago and have been getting progressively worse in nature. Family states that when he is talking he does not make as much sense as normal. His shortness of breath has been worse with exertion as well as with lying flat. When he is lying flat he does have positive clear mucous production. Patient uses inhalers but does not have an at-home nebulizer. He has not had any significant changes to his medications. He will undergo further evaluation for possible COPD exacerbation versus CHF versus pneumonia. Patient is pleasant and answering questions. Not in acute respiratory distress once on oxygen. Patient is confused sometimes during the exam. Lungs have overall decreased sounds without specific wheezing or rhonchi.
--- NOTE | 2018-09-24 15:05 | Emergency Department Note ---
Disposition Clinical Impression: COPD with acute exacerbation Edema Qualifiers: Edema type: unspecified Qualified Code(s): R60.9 - Edema, unspecified Disposition: Admitted As Inpatient Condition: Fair Time of Disposition: 15:39 Altered Mental Status HPI - General Chief Complaint: ED Altered Mental Status Stated Complaint: Oxygen level 87 Time Seen by Provider: 09/24/18 12:54 Source: patient, family Limitations: no limitations Nursing Notes Reviewed: Yes Vital Signs Reviewed: Yes - History of Present Illness HPI Narrative: Patient presents to the ED with family with the chief complaint of confusion and shortness of breath. Patient has a history of non-O2 dependent COPD. Family states he's been more confused over the past few days. No falls or injury. Does c/o increasing swelling to his legs as well. Family called EMS and his O2 was in the mid-80's. He was placed on O2 and it improved quickly. Patient states he has some chest tightness as well. No fever or chills. No abdominal pain, n/v/d. - Related Data Home Medications Medication Instructions Recorded Confirmed Celecoxib [Celebrex] 200 mg PO DAILY 08/12/17 09/24/18 Cholecalciferol (D-3) [Vitamin D] 5,000 unit PO DAILY 08/12/17 09/24/18 Fluticasone/Vilanterol [Breo 1 puff IH BID 08/12/17 09/24/18 Ellipta 200-25 Mcg INH] Ipratropium/Albuterol Sulfate 2 puff IH Q6H PRN 08/12/17 09/24/18 [Combivent Respimat 20-100 Mcg] Pantoprazole Sodium 40 mg PO DAILY 08/12/17 09/24/18 Simvastatin [Zocor] 40 mg PO HS 08/12/17 09/24/18 Tamsulosin [Flomax] 0.4 mg PO DAILY 08/12/17 09/24/18 Oxycodone HCl/Acetaminophen 1 tab PO Q8H PRN 10/04/17 09/24/18 [Percocet 10-325 mg Tablet] Memantine HCl 5 mg PO DAILY 09/24/18 09/24/18 Previous Rx's Medication Instructions Recorded Aspirin Enteric Coated [Aspirin EC] 325 mg PO DAILY #21 tablet. 08/13/17 Allergies Allergy/AdvReac Type Severity Reaction Status Date / Time Penicillins [PCN] Allergy Mild See Verified 09/24/18 13:05 Comments Sulfa (Sulfonamide Allergy See Verified 09/24/18 13:05 Antibiotics) Comments haloperidol [From Haldol] AdvReac Agitated Verified 09/24/18 13:05 Review of Systems: As reviewed in the HPI. All other systems reviewed are negative or normal. Past Medical History - Past Medical History Attestation: Yes The following information was validated with the patient. Source: patient, old records reviewed, obtained from family Medical history: Reports: arthritis, COPD, coronary artery disease, dementia Surgical history: Reports: hip replacement Psychiatric history: Reports: no psych history - Social History Smoking Status: Former smoker Smokeless Tobacco Status: No Alcohol use: Reports: none Drug use: Reports: none Physical Exam CONSTITUTIONAL: [well appearing, alert and in no acute distress] EYES: [EOMI, clear conjunctiva, PERRLA] HENT: [Normocephalic, atraumatic, moist mucus membranes, normal oropharynx] NECK: [normal inspection, full ROM, trachea midline, no obvious swelling] PULMONARY: [decreased breath sounds b/l, wheezing in top lungs, rales in b/l bases, poor insp, normal effort, no acute distress CARDIOVASCULAR: [regular rate, regular rhythm, normal heart sounds, no murmurs, distal extremities are warm and well perfused] GASTROINSTESTINAL: [soft, non-tender, non-rigid, non-distended, no guarding, no rebound, normal bowel sounds] GENITOURINARY/RECTAL: [deferred] NEUROLOGIC: [Alert, oriented x2 (person and place, not time but about baseline with h/o dementia), normal speech, moves all extremities] EXTREMITIES: [Normal inspection, full ROM, no tenderness, no pedal edema but family reports was swollen yesterday, normal capillary refill] MUSCULOSKELETAL: [no gross deformities, atraumatic] SKIN: [No cyanosis, no diaphoresis, normal color, warm, no rash] PSYCHIATRIC: [normal mood and affect] - General Limitations: no limitations General appearance: alert, in no apparent distress Course Course Narrative: patient presenting with CP/SOB. Seems to be mixed COPD vs CHF. Will treat with nebs and steroids as he is not moving air that well and has hypoxic requiring new O2. Patient very well could have new component of CHF as well due to subjective BLE swelling. Will need to be admitted for home O2 qualification and further workup. Vital Signs Temperature 98.0 F 09/24/18 13:01 Pulse Rate 63 09/24/18 13:01 Respiratory Rate 20 09/24/18 13:01 Blood Pressure 124/71 09/24/18 13:01 O2 Sat by Pulse Oximetry 97 09/24/18 13:01 Temperature 98.0 F 09/24/18 13:16 Pulse Rate 71 09/24/18 14:59 Respiratory Rate 16 09/24/18 14:59 Blood Pressure 154/72 09/24/18 14:59 O2 Sat by Pulse Oximetry 98 09/24/18 14:59 Oxygen Delivery Oxygen Delivery Nasal Cannula Altered Mental Status - Medical Records Medical records reviewed: Yes I reviewed the patient's medical records. - Lab Data Lab results reviewed: Yes I reviewed the patient's lab results. Result diagrams: 09/24/18 13:24 09/24/18 13:24 Lab Results 09/24/18 09/24/18 09/24/18 Range/Units 13:24 13:24 13:24 WBC 5.2 (4.3-11.1) K/mcL RBC 4.91 (4.19-5.50) M/mcL Hgb 14.1 (12.9-16.9) g/dL Hct 43.8 (37.5-50.1) % MCV 89.2 (83.0-100.0) fL MCH 28.7 (28.0-33.3) pg MCHC 32.2 (31.6-35.5) g/dL RDW 13.2 (11.5-14.5) % Plt Count 181 (140-400) K/mcL MPV 10.3 (9.4-12.4) fL Immature Gran % 0.4 (0-4) % Seg Neutrophils % 58.3 % Lymphocytes % 28.1 % Monocytes % 9.3 % Eosinophils % 3.5 % Basophils % 0.4 % Neutrophils # 3.0 (1.6-8.9) K/mcL Lymphocytes # 1.5 (0.6-4.6) K/mcL Monocytes # 0.5 (0.0-1.3) K/mcL Eosinophils # 0.2 (0.0-0.6) K/mcL Basophils # 0.0 (0.0-0.2) K/mcL Sodium 140 (136-145) mEq/L Potassium 4.4 (3.5-5.1) mEq/L Chloride 107 (98-107) mEq/L Carbon Dioxide 28 (23-29) mEq/L BUN 20 (8-23) mg/dL Creatinine 1.37 H (0.70-1.30) mg/dL Est GFR ( Amer) > 60 (> 60) Est GFR (Non-Af Amer) 50 L (> 60) BUN/Creatinine Ratio 15 (6-26) Glucose 95 (70-105) mg/dL Calculated Osmolality 292 (280-300) Lactic Acid (0.5-2.2) mmol/L Calcium 8.7 (8.6-10.3) mg/dL Troponin I < 0.03 (< 0.04) ng/mL B-Natriuretic Peptide 49 (Less than 100) pg/mL 09/24/18 Range/Units 14:46 WBC (4.3-11.1) K/mcL RBC (4.19-5.50) M/mcL Hgb (12.9-16.9) g/dL Hct (37.5-50.1) % MCV (83.0-100.0) fL MCH (28.0-33.3) pg MCHC (31.6-35.5) g/dL RDW (11.5-14.5) % Plt Count (140-400) K/mcL MPV (9.4-12.4) fL Immature Gran % (0-4) % Seg Neutrophils % % Lymphocytes % % Monocytes % % Eosinophils % % Basophils % % Neutrophils # (1.6-8.9) K/mcL Lymphocytes # (0.6-4.6) K/mcL Monocytes # (0.0-1.3) K/mcL Eosinophils # (0.0-0.6) K/mcL Basophils # (0.0-0.2) K/mcL Sodium (136-145) mEq/L Potassium (3.5-5.1) mEq/L Chloride (98-107) mEq/L Carbon Dioxide (23-29) mEq/L BUN (8-23) mg/dL Creatinine (0.70-1.30) mg/dL Est GFR ( Amer) (> 60) Est GFR (Non-Af Amer) (> 60) BUN/Creatinine Ratio (6-26) Glucose (70-105) mg/dL Calculated Osmolality (280-300) Lactic Acid 0.8 (0.5-2.2) mmol/L Calcium (8.6-10.3) mg/dL Troponin I (< 0.04) ng/mL B-Natriuretic Peptide (Less than 100) pg/mL - Radiology Data Radiology results reviewed: Yes I reviewed the patient's radiology results. - EKG Data EKG attestation: Yes I reviewed and interpreted this EKG. EKG results narrative: Sinus rhythm, rate 64, left axis deviation, no acute ischemic changes TPA Checklist - LKW: 3-4.5 hrs Add. Warnings/Precautions Patient/family understanding: The patient/family members have been counseled and understood the risk, benefit, and alternatives of treatment.
[2018-09-24 16:00] LABS: VBG HCO3 28 mEq/L (21-27); VBG PCO2 57 mmHg (41-51); VBG PO2 84 mmHg (25-50)
[2018-09-24] MEDS ORDERED: Naloxone 0.4 MG/ML INJ IVP PRN (16:03)
[2018-09-24] MEDS ORDERED: Albuterol 2.5 MG/3 ML NEBULIZER IH PRN (16:05)
[2018-09-24] MEDS ORDERED: 0.9 % Sodium Chloride 500 ML IVC ONE (16:06)
--- NOTE | 2018-09-24 16:58 | Internal Med History&Physical ---
Date of Encounter: 09/24/18 Time of Encounter: 16:47 Internal Medicine - H&P: HPI Chief complaint: His oxygen has been low Admitted From: Home Plans for Post Hospital Care: Home History of present illness: Mr. Buckner is a 82 year old male with medical hx of HLD, Arthritis, GERD, Dementia, CAD he is seen in company of his son and caregiver According to family, patient was in his usual state of health till exactly 7 days ago when he started having low O2 levels, it did not matter whether he was at rest or ambulatory, he was noted to have low O2 from late 80s to early 90s. They have also noticed that he huffs and puffs on minimal exertion, as he was usually able to go to the barn and back, but has been having worsening SOB Patient and family deny fever or chills, deny cough or rhinorrhea, no sore throat, no myalgias. He has no n/v/d, no abdominal symptoms, he has no chest pain . They however report he had R ankle swelling, which has resolved at my time of evaluation. Patient thinks "they're blowing it out of proportion", and denies any active problems. They deny any urinary symptoms, however, patient was unable to void in the ER and a Hercules catheter was placed. Family also complains of worsening somnolence Work up in the R showed s normal CBC, with slighlty elevated CR above baseline, VBG shows PCO2 of 57 and PH of 7.30. troponin was negative and BNP was 49. CXR showed no focal airway disease, suspect bronchitis The patient is full code Past Med Surg Social Fam HX - Past Medical History Medical history: arthritis, COPD, coronary artery disease, dementia Psychiatric history: no psych history - Past Surgical History Surgical History: hip replacement Additional surgical history: Right total hip - Social History Smoking Status: Former smoker Smokeless Tobacco Status: No Alcohol use: none Drug use: none - Family History Father Adopted: No Family Member Ethnicity: Non- Living Status: Hx Family Cardiac Disorders: No Hx Family Respiratory Disorders: No Hx Family Cancer: No Hx Family GI Disorders: No Hx Family Endocrine Disorder: No Hx Family Neuromuscular Disorders: No Hx Family Neurologic Disorders: No Hx Family HEENT Disorders: No Hx Family Autoimmune Disorders: No Mother Adopted: No Living Status: Hx Family Cancer: Yes Sister Adopted: No Family Member Ethnicity: Non- Living Status: Still Living Hx Family Cardiac Disorders: No Hx Family Respiratory Disorders: No Hx Family Cancer: No Hx Family GI Disorders: No Hx Family Endocrine Disorder: No Hx Family Neuromuscular Disorders: No Hx Family Neurologic Disorders: No Hx Family HEENT Disorders: No Hx Family Autoimmune Disorders: No Internal Medicine - H&P: Meds Celecoxib [Celebrex] 200 mg PO DAILY 08/12/17 [History] Cholecalciferol (D-3) [Vitamin D] 5,000 unit PO DAILY 08/12/17 [History] Fluticasone/Vilanterol [Breo Ellipta 200-25 Mcg INH] 1 puff IH BID 08/12/17 [Hi story] Ipratropium/Albuterol Sulfate [Combivent Respimat 20-100 Mcg] 2 puff IH Q6H PRN 08/12/17 [History] Pantoprazole Sodium 40 mg PO DAILY 08/12/17 [History] Simvastatin [Zocor] 40 mg PO HS 08/12/17 [History] Tamsulosin [Flomax] 0.4 mg PO DAILY 08/12/17 [History] Aspirin Enteric Coated [Aspirin EC] 325 mg PO DAILY #21 tablet. 08/13/17 [Rx] Oxycodone HCl/Acetaminophen [Percocet 10-325 mg Tablet] 1 tab PO Q8H PRN 10/04/17 [History] Memantine HCl 5 mg PO DAILY 09/24/18 [History] Allergy/AdvReac Type Severity Reaction Status Date / Time Penicillins [PCN] Allergy Mild See Verified 09/24/18 13:05 Comments Sulfa (Sulfonamide Allergy See Verified 09/24/18 13:05 Antibiotics) Comments haloperidol [From Haldol] AdvReac Agitated Verified 09/24/18 13:05 All Systems PM: A 10-system review of systems was performed and is negative for pertinent findings except as documented above in the HPI. - Constitutional Constitutional: no chills, no fever(s), no night sweats - EENT Eyes: no change in vision, no discharge, no pain, no photophobia Ears: no ear discharge, no ear pain, no tinnitus Nose, mouth and throat: no dysphagia, no nasal discharge, no neck pain, no sore throat - Cardiovascular Cardiovascular ROS IM: no chest pain, no diaphoresis, no dyspnea, no lightheadedness, no palpitations, no syncope - Respiratory Respiratory: as per HPI, dyspnea, no cough, no wheezing, no excessive phlegm production - Gastrointestinal Gastrointestinal: no abdominal pain, no diarrhea, no hematemesis, no hematochezia, no melena, no nausea, no vomiting - Musculoskeletal Musculoskeletal ROS IM: joint swelling - Integumentary Integumentary IM: no rash, no unusual bruising - Neurological Neurological ROS: no confusion, no convulsions, no focal weakness, no numbness, no tingling, no tremor(s) - Hematologic/Lymphatic Hematologic/Lymphatic: no easy bruising - Constitutional Vitals: Temp Pulse Resp BP Pulse Ox 98.0 F 71 16 154/72 98 09/24/18 13:16 09/24/18 14:59 09/24/18 14:59 09/24/18 14:59 09/24/18 14:59 General appearance: Present: cooperative, A&O X 2 (oriented to place and person), pleasant, no acute distress Exam: see detailed systemic exam - Head Head exam: Present: atraumatic, normocephalic - Eye Eye exam: Present: PERRL, conjuntiva pink, sclera anicteric Pupils: Present: PERRL - Neck Neck exam general surgery: Present: supple, trachea midline. Absent: lymphadenopathy - Respiratory Respiratory exam: Present: CTAB. Absent: accessory muscle use, rales, rhonchi, wheezes - Cardiovascular Cardiovascular exam: Present: RRR, +S1, +S2. Absent: diastolic murmur, gallop, rubs, systolic murmur - GI/Abdominal GI/Abdominal exam: Present: normal bowel sounds, soft, no peritoneal signs. Absent: distended, tenderness - Extremities Exam Extremities exam: Present: warm, radial pulses palpable and symmetrical. Absent: calf tenderness, cyanotic, pedal edema - Neurological Exam Neurological exam: Present: alert, CN II-XII intact, no focal deficits. Absent: oriented X3, pronater drift, facial droop, speech deficit - Skin Skin exam: Present: dry, intact Internal Med - H&P Results - Labs CBC & Chem 7: 09/24/18 13:24 09/24/18 13:24 Labs: Short CBC 09/24/18 Range/Units 13:24 WBC 5.2 (4.3-11.1) K/mcL Hgb 14.1 (12.9-16.9) g/dL Hct 43.8 (37.5-50.1) % Plt Count 181 (140-400) K/mcL Neutrophils # 3.0 (1.6-8.9) K/mcL BMP 09/24/18 13:24 Sodium 140 Potassium 4.4 Chloride 107 Carbon Dioxide 28 BUN 20 Creatinine 1.37 H Glucose 95 Calcium 8.7 Cardiac Enzymes 09/24/18 Range/Units 13:24 Troponin I < 0.03 (< 0.04) ng/mL - ABG Interpretation ABG results: 09/24/18 15:58 VBG pH 7.30 L VBG pCO2 57 H VBG pO2 84 H VBG HCO3 28 H - Impressions ITS Impressions Chest X-Ray 09/24/18 13:37 IMPRESSION: Mild edema versus airway inflammation. No focal airspace disease. D/ / Ravinder Norman / Ravinder Norman Interpreting Provider: Ravinder Norman - Assessment and plan (1) COPD with acute exacerbation Current Visit: Yes Status: Acute Assessment and plan: Patient with hx of COPD who presented with worsening O2 requirements and SOB NO signficant findings on exam CXR without pulm edema BNP 49 Will manage as COPDE with steroids, duoneb, azithromycin po HOB elevation Continue O2 by NC, wean as tolerated (2) DVT prophylaxis Current Visit: Yes Status: Acute Assessment and plan: sQ heparin (3) Edema Current Visit: Yes Status: Acute Assessment and plan: reported by family RLE swelling None visible on exam Obtain doppler USS of RLE Patient has a hx of arthritis, no visible joint swelling Qualifiers: Edema type: unspecified Qualified Code(s): R60.9 - Edema, unspecified (4) Hyperlipidemia Current Visit: Yes Status: Chronic Assessment and plan: continue home simvastatin Qualifiers: Hyperlipidemia type: mixed hyperlipidemia Qualified Code(s): E78.2 - Mixed hyperlipidemia (5) Osteoporosis Current Visit: Yes Status: Chronic Assessment and plan: continue Vit D supplement at home dose Qualifiers: Osteoporosis type: age-related Presence of current pathological fracture: unspecified Qualified Code(s): M81.0 - Age-related osteoporosis without current pathological fracture (6) Altered mental status, unspecified Current Visit: Yes Status: Acute Assessment and plan: baseline, patient with dementia but able to function Per family, has been having some incomprehensible speech and confusion VBG shows only minimally elevated CO2, dehydration noted on exam Obtain ammonia level patient has no neurologic deficits and is AAOX2 on exam Obtain UA Low threshold for brain imaging, not indicated at this time Fall precautions, continue to monitor Qualifiers: Altered mental status type: unspecified Qualified Code(s): R41.82 - Altered mental status, unspecified (7) Dementia Current Visit: Yes Status: Chronic Assessment and plan: continue home meds Qualifiers: Dementia type: unspecified type Dementia behavioral disturbance: without behavioral disturbance Qualified Code(s): F03.90 - Unspecified dementia without behavioral disturbance - Time Spent With Patient Total time spent is greater than 50% in coordination of care (as documented) at patient's floor/unit and/or counseling patient:
[2018-09-24] MEDS: Azithromycin 250 MG TABLET PO SCH (17:33)
[2018-09-24 17:55] LABS: Bilirubin,Urine Negative (Negative); Blood,Urine Negative (Negative); Clarity,Urine Clear (Clear); Color,Urine Yellow (Yellow); Glucose,Urine (UA) Normal (Normal); Ketones,Urine Negative (Negative); Leukocyte Esterase,Urine Negative (Negative); Nitrite,Urine Negative (Negative); PH,Urine 6.5 pH Units (5.0-8.0); Protein,Urine Negative (Neg-Trace); Specific Gravity,Urine 1.008 (1.010-1.025); Urobilinogen,Urine Normal (Normal)
--- NOTE | 2018-09-24 18:31 | Electrocardiograph Report ---
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
[2018-09-24] MEDS: Ipratropium/Albuterol Neb 3 ML IH SCH ×2 (19:18→21:57)
[2018-09-24] MEDS: *HR* Heparin 5,000 UNIT/ML VIAL SQ SCH (20:52)
[2018-09-24] MEDS: *HR* OxyCODONE/APAP 10/325 TABLET PO PRN (23:26)
[2018-09-25] MEDS: Ipratropium/Albuterol Neb 3 ML IH SCH ×3 (03:54→18:14)
[2018-09-25 04:30] LABS: BUN/Creatinine Ratio 19 (6-26); Blood Urea Nitrogen 20 mg/dL (8-23); Carbon Dioxide 22 mEq/L (23-29); Chloride 106 mEq/L (98-107); Glucose 176 mg/dL (70-105); Osmolality,Calculated 297 (280-300); Potassium 4.3 mEq/L (3.5-5.1); Sodium 140 mEq/L (136-145); eGFR For Non-African Americans > 60 (> 60)
[2018-09-25] MEDS: *HR* Heparin 5,000 UNIT/ML VIAL SQ SCH ×3 (05:19→19:52)
[2018-09-25] MEDS ORDERED: Cholecalciferol (D-3) 1,000 UNIT TABLET PO SCH (09:00)
[2018-09-25] MEDS ORDERED: predniSONE 20 MG TABLET PO SCH (09:00)
[2018-09-25] MEDS ORDERED: Aspirin Enteric Coated 325 MG Tablet PO SCH (09:00)
[2018-09-25] MEDS: Azithromycin 250 MG TABLET PO SCH (09:09)
--- NOTE | 2018-09-25 11:02 | Internal Med Progress Note ---
Hospitalist Progress Note - Encounter Date of Encounter: 09/25/18 Time of Encounter: 09:10 - Subjective Interval History: Seen and evaluated at the bedside Patient reports "I feel like I'm about to " He was eating his breakfast and in no form of distress He denies chest pain or difficulty breathing, but did look quite deconditioned Brain CT was ordered which showed no acute findings ABG is pending, he has few wheezes but air entry is adequate - Exam Vitals: Temp Pulse Resp BP Pulse Ox 97.5 F L 116 20 170/92 92 09/25/18 10:14 09/25/18 10:14 09/25/18 10:14 09/25/18 10:14 09/25/18 10:14 Exam: Vitals: Reviewed and noted Gen: Not in distress, morbidly obese, speaks full sentences HEENT: Moist oral mucosa, not pale, not cyanotic Chest: few scattered expiratory wheezing Heart: S1, S2 only, no m/g/r Abdomen: Obese, not tender, no palpably enlarged organs Extremities: NO pedal edema Neuro: Alert, awake, oriented to self and place only, moves all extremities - Assessment and Plan (1) COPD with acute exacerbation Current Visit: Yes Status: Acute Assessment and Plan: Patient with hx of COPD who presented with worsening O2 requirements and SOB CXR without pulm edema BNP 49 Continiue O2, wean as tolerated, continue steroids Obtain ABG Continue Azithromycin po (2) DVT prophylaxis Current Visit: Yes Status: Acute Assessment and Plan: sQ heparin (3) Edema Current Visit: Yes Status: Acute Assessment and Plan: reported by family RLE swelling None visible on exam No DVT per USS (4) Hyperlipidemia Current Visit: Yes Status: Chronic Assessment and Plan: continue home simvastatin (5) Osteoporosis Current Visit: Yes Status: Chronic Assessment and Plan: continue Vit D supplement at home dose (6) Altered mental status, unspecified Current Visit: Yes Status: Acute Assessment and Plan: baseline, patient with dementia but able to function Per family, has been having some incomprehensible speech and confusion VBG shows only minimally elevated CO2, dehydration noted on exam Ammonia Level WNL UAis clean Brain CT with no acute findings Will obtain ABG Likely progression of dementia Fall precautions, continue to monitor (7) Dementia Current Visit: Yes Status: Chronic Assessment and Plan: continue home meds - Time Spent with Patient Total time spent is greater than 50% in coordination of care (as documented) at patient's floor/unit and/or counseling patient: Plan of Care Discussed with: nurse Internal Medicine: Result - Labs CBC & Chem 7: 09/24/18 13:24 09/25/18 03:21 Labs: Short CBC 09/24/18 Range/Units 13:24 WBC 5.2 (4.3-11.1) K/mcL Hgb 14.1 (12.9-16.9) g/dL Hct 43.8 (37.5-50.1) % Plt Count 181 (140-400) K/mcL Neutrophils # 3.0 (1.6-8.9) K/mcL BMP 09/24/18 09/25/18 13:24 03:21 Sodium 140 140 Potassium 4.4 4.3 Chloride 107 106 Carbon Dioxide 28 22 L BUN 20 20 Creatinine 1.37 H 1.08 Glucose 95 176 H Calcium 8.7 9.0 Cardiac Enzymes 09/24/18 Range/Units 13:24 Troponin I < 0.03 (< 0.04) ng/mL Urine 09/24/18 Range/Units 17:00 Urine Color Yellow (Yellow) Urine Clarity Clear (Clear) Urine pH 6.5 (5.0-8.0) pH Units Ur Specific Donora 1.008 L (1.010-1.025) Urine Protein Negative (Neg-Trace) mg/dL Urine Glucose (UA) Normal (Normal) mg/dL - Impressions Impressions Chest X-Ray 09/24/18 13:37 IMPRESSION: Mild edema versus airway inflammation. No focal airspace disease. D/ / Ravinder Norman / Ravinder Norman Interpreting Provider: Ravinder Norman Consult Discharge Plan - Plan Referrals: Aj Snyder MD [Primary Care Provider] - (3) Edema Qualifiers: Edema type: unspecified Qualified Code(s): R60.9 - Edema, unspecified (4) Hyperlipidemia Qualifiers: Hyperlipidemia type: mixed hyperlipidemia Qualified Code(s): E78.2 - Mixed hyperlipidemia (5) Osteoporosis Qualifiers: Osteoporosis type: age-related Presence of current pathological fracture: un specified Qualified Code(s): M81.0 - Age-related osteoporosis without current pathological fracture (6) Altered mental status, unspecified Qualifiers: Altered mental status type: unspecified Qualified Code(s): R41.82 - Altered mental status, unspecified (7) Dementia Qualifiers: Dementia type: unspecified type Dementia behavioral disturbance: without behavioral disturbance Qualified Code(s): F03.90 - Unspecified dementia without behavioral disturbance
[2018-09-25] MEDS: *HR* OxyCODONE/APAP 10/325 TABLET PO PRN ×2 (13:18→21:15)
[2018-09-25 17:34] LABS: ABG Base Excess 0 mEq/L (-2 to 3); ABG HCO3 24 mEq/L (21-27); ABG Oxygen Saturation 95 % (95-98); ABG PCO2 35 mmHg (35-45); ABG PH 7.44 pH Units (7.32-7.45); ABG PO2 73 mmHg (85-104); ABG TCO2 25 mEq/L (20-26)
[2018-09-25] MEDS ORDERED: Ondansetron 4 MG/2 ML VIAL IVP ONE (23:58)
[2018-09-26] MEDS: Ipratropium/Albuterol Neb 3 ML IH SCH ×2 (00:08→04:40)
[2018-09-26] MEDS: *HR* Heparin 5,000 UNIT/ML VIAL SQ SCH (04:03)
[2018-09-26] MEDS: *HR* OxyCODONE/APAP 10/325 TABLET PO PRN (04:03)
[2018-09-26 08:33] VITALS: BP 152/75
--- NOTE | 2018-09-26 09:41 | Discharge Summary ---
- NOTES TO OUTPATIENT PROVIDER Notes to Outpatient Provider: 82 M with PMH of dementia, COPD, BPH, brought in by family with complains of altered mentation. Patient is oriented X2 to place and person at baseline. he was also found to be hypoxic and in SOB wheezing on arrival. CXR did not show any infiltrates. CBC, Chem, Ammonia levels, Lactate, BNP were WNL. head CT did not show any acute findings. he was placed on azithromycin for bronchitis as well as nebs and steroids for COPDE. ABG and VBG did not show hypercapnea, he did require O2 at the begining of the admission, but O2 was weaned off and patient did not qualify for home O2 on 6 mins walk test. He is seen and examined at the bedside this mrn and clinically stable to be discharged home with home health. he has home health for detention, will add PTOT. 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 There was no chage in home meds, follow up with PCP. Orders not resulted at time of discharge: Pending orders 09/24/18 14:46 Culture,Blood [BC] Stat Date of Encounter: 09/26/18 Time of Encounter: 09:05 - Discharge Diagnosis (1) COPD with acute exacerbation Priority: Primary Status: Acute (2) DVT prophylaxis Priority: Primary Status: Resolved (3) Edema Priority: Primary Status: Resolved Qualifiers: Edema type: unspecified Qualified Code(s): R60.9 - Edema, unspecified (4) Hyperlipidemia Priority: Secondary Status: Chronic Qualifiers: Hyperlipidemia type: mixed hyperlipidemia Qualified Code(s): E78.2 - Mixed hyperlipidemia (5) Osteoporosis Priority: Secondary Status: Chronic Qualifiers: Osteoporosis type: age-related Presence of current pathological fracture: unspecified Qualified Code(s): M81.0 - Age-related osteoporosis without current pathological fracture (6) Altered mental status, unspecified Priority: Primary Status: Resolved Qualifiers: Altered mental status type: unspecified Qualified Code(s): R41.82 - Altered mental status, unspecified (7) Dementia Priority: Secondary Status: Chronic Qualifiers: Dementia type: unspecified type Dementia behavioral disturbance: without behavioral disturbance Qualified Code(s): F03.90 - Unspecified dementia without behavioral disturbance Hospital course: Mr. Buckner is a 82 year old male 82 M with PMH of dementia, COPD, BPH, brought in by family with complains of altered mentation. Patient is oriented X2 to place and person at baseline. he was also found to be hypoxic and in SOB wheezing on arrival. CXR did not show any infiltrates. CBC, Chem, Ammonia levels, Lactate, BNP were WNL. head CT did not show any acute findings. he was placed on azithromycin for bronchitis as well as nebs and steroids for COPDE. ABG and VBG did not show hypercapnea. Family also complained of leg swelling, which was not present on admission. Doppler USS of both LE negative for DVT. He did require O2 at the beginning of the admission, but O2 was weaned off and patient did not qualify for home O2 on 6 mins walk test. He is seen and examined at the bedside this mrn and clinically stable to be discharged home with home health. he has home health for detention, will add PTOT. 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 There was no change in home meds, follow up with PCP. Discharge discussed with: patient, family, nurse - Time Spent with Patient Total time spent providing and/or coordinating discharge services: Less than 30 minutes - Discharge Medications Home Medications: Celecoxib [Celebrex] 200 mg PO DAILY 08/12/17 [History] Cholecalciferol (D-3) [Vitamin D] 5,000 unit PO DAILY 08/12/17 [History] Fluticasone/Vilanterol [Breo Ellipta 200-25 Mcg INH] 1 puff IH BID 08/12/17 [ History] Ipratropium/Albuterol Sulfate [Combivent Respimat 20-100 Mcg] 2 puff IH Q6H PRN 08/12/17 [History] Pantoprazole Sodium 40 mg PO DAILY 08/12/17 [History] Simvastatin [Zocor] 40 mg PO HS 08/12/17 [History] Tamsulosin [Flomax] 0.4 mg PO DAILY 08/12/17 [History] Aspirin Enteric Coated [Aspirin EC] 325 mg PO DAILY #21 tablet. 08/13/17 [Rx] Oxycodone HCl/Acetaminophen [Percocet 10-325 mg Tablet] 1 tab PO Q8H PRN 10/04/17 [History] Memantine HCl 5 mg PO DAILY 09/24/18 [History] Allergies/Adverse Reactions: Allergy/AdvReac Type Severity Reaction Status Date / Time Penicillins [PCN] Allergy Mild See Verified 09/24/18 13:05 Comments Sulfa (Sulfonamide Allergy See Verified 09/24/18 13:05 Antibiotics) Comments haloperidol [From Haldol] AdvReac Agitated Verified 09/24/18 13:05 Date of admission: 09/24/18 15:34 Primary care physician: Aj Snyder Consults: 09/24/18 16:05 Consult to Nurse Navigator [CONS] Routine Comment: Discharging clinician: Kojo Siegel Anticipated date of discharge: 09/26/18 - Constitutional Vitals: Temp Pulse Resp BP Pulse Ox 98.2 F 82 16 152/75 93 09/26/18 08:30 09/26/18 08:30 09/26/18 08:30 09/26/18 08:30 09/26/18 08:30 General appearance: Present: cooperative, A&O X 2 (oriented to place and person), pleasant, no acute distress Exam: Vitals: Reviewed and noted Gen: Not in distress, morbidly obese, speaks full sentences HEENT: Moist oral mucosa, not pale, not cyanotic Chest: CTAB Heart: S1, S2 only, no m/g/r Abdomen: Obese, not tender, no palpably enlarged organs Extremities: NO pedal edema Neuro: Alert, awake, oriented to self and place only, moves all extremities - Patient Status Disposition: Home Health Service Condition: Fair Functional capacity at discharge: independent ambulation Overall status at discharge: patient is progressing back to baseline - Discharge Instructions Follow Up With: Aj Snyder MD [Primary Care Provider] - - Diet and Activity Activity: resume usual activities as tolerated Diet: low salt diet
--- NOTE | 2018-09-26 09:53 | Physician Discharge Referral ---
Home Health/Hosp Referral Info Transfer to: Home Health Attending Provider: Joyce Siegel Provider in Charge Post Discharge: PCP - Diagnosis (1) COPD with acute exacerbation Priority: Primary Status: Acute (2) DVT prophylaxis Priority: Primary Status: Resolved (3) Edema Priority: Primary Status: Resolved (4) Hyperlipidemia Priority: Secondary Status: Chronic (5) Osteoporosis Priority: Secondary Status: Chronic (6) Altered mental status, unspecified Priority: Primary Status: Resolved (7) Dementia Priority: Secondary Status: Chronic - Respiratory Orders Smoking Cessation: Smoking cessation has been advised. For more information, call the [place] Tobacco Quit Line at 8-848-NIXA-NOW. - Diet/Nutrition Diet/Nutrition Orders: Cardiac - Activity Activity Orders: Up ad darren - Services Needed Following services are medically necessary services: Nursing, Home Health Aide, Physical Therapy, Occupational Therapy - Transfer Medications Prescriptions: Azithromycin [Zithromax] 500 mg PO DAILY 3 Days #6 tablet predniSONE [PredniSONE] 40 mg PO DAILY 3 Days #6 tablet Home Medications: Celecoxib [Celebrex] 200 mg PO DAILY 08/12/17 [History] Cholecalciferol (D-3) [Vitamin D] 5,000 unit PO DAILY 08/12/17 [History] Fluticasone/Vilanterol [Breo Ellipta 200-25 Mcg INH] 1 puff IH BID 08/12/17 [History] Ipratropium/Albuterol Sulfate [Combivent Respimat 20-100 Mcg] 2 puff IH Q6H PRN 08/12/17 [History] Pantoprazole Sodium 40 mg PO DAILY 08/12/17 [History] Simvastatin [Zocor] 40 mg PO HS 08/12/17 [History] Tamsulosin [Flomax] 0.4 mg PO DAILY 08/12/17 [History] Aspirin Enteric Coated [Aspirin EC] 325 mg PO DAILY #21 tablet. 08/13/17 [Rx] Oxycodone HCl/Acetaminophen [Percocet 10-325 mg Tablet] 1 tab PO Q8H PRN 10/04/17 [History] Memantine HCl 5 mg PO DAILY 09/24/18 [History] Azithromycin [Zithromax] 500 mg PO DAILY 3 Days #6 tablet 09/26/18 [Rx] predniSONE [PredniSONE] 40 mg PO DAILY 3 Days #6 tablet 09/26/18 [Rx] Allergies/Adverse Reactions: Allergy/AdvReac Type Severity Reaction Status Date / Time Penicillins [PCN] Allergy Mild See Verified 09/24/18 13:05 Comments Sulfa (Sulfonamide Allergy See Verified 09/24/18 13:05 Antibiotics) Comments haloperidol [From Haldol] AdvReac Agitated Verified 09/24/18 13:05 Certification: Further, I certify that my clinical findings support that this patient is homebound (i.e. absences from home require considerable and taxing effort and are for medical reasons or alevism services or infrequently or short duration when for other reasons) because: Homebound Reason: Patient requires assistance of a person or device to safely leave home Attestation: My signature below is to certify that this patient is under my care and that I, or nurse practitioner, or a physician's law office assistant working with me, has a [id number] encounter with this patient.
== END 2018-09-26 10:40 | disposition home health service (06) ==
LOC: 3BNU 12:47 → EMEROOARM 12:47 → SUATTDRO 15:34 → 3BNU 16:25
PROVIDERS: ADMIT Internal Medicine; ATTEND Internal Medicine